=== PATIENT | male | born 1940 | race Asian ===

== ENCOUNTER 2019-08-05 22:43 | Inpatient (IN) | payer OTHER ==
[2019-08-05 23:06] LABS: Absolute Lymphocytes (CBC) 1.1 K/uL (0.7-4.9); Basophils % 0.5 % (0-1.3); Hematocrit 42.8 % (39.6-49.0); Lymphocytes % 25.4 % (15.3-44.8); MPV 7.7 fL (7.6-11.3); RBC Red Blood Cell Count 4.53 M/uL (4.33-5.43)
[2019-08-05 23:09] LABS: Protime INR 0.93
[2019-08-05 23:37] LABS: ALT/SGPT 36 U/L (12-78); AST/SGOT 23 U/L (15-37); Albumin 3.7 g/dL (3.4-5.0); Alkaline Phosphatase 45 U/L (45-117); BUN Blood Urea Nitrogen 26 mg/dL (7-18); Bicarbonate 23 mmol/L (21-32); Bilirubin Direct 0.1 mg/dL (0-0.2); Bilirubin Total 0.5 mg/dL (0.2-1.0); Glucose Level 198 mg/dL (74-106); Potassium 4.2 mmol/L (3.5-5.1); Protein, Total 7.4 g/dL (6.4-8.2); Sodium Level 139 mmol/L (136-145); Troponin (Emerg Dept Use Only) < 0.02 ng/mL (0.0-0.045)
--- NOTE | 2019-08-05 23:55 | EDPHYS ---
Physician Documentation [facility] Name: Mayte Avendaño Age: 78 yrs Sex: Male : 1940 Arrival Date: 08/05/2019 Time: 22:44 Bed 2 Private MD: ED Physician Chucho Smith HPI: 08/04 22:48 This 78 yrs old Male presents to ER via Unassigned with complaints of S/S of tw4 Possible Stroke. 22:48 The patient's problem is reported as paresthesias, in left upper extremity, in left tw4 lower extremity, in left side of face. Onset: The symptoms/episode began/occurred today. Duration: This was a single incident, The episode is continuous. Context: the episode(s) was witnessed, by no one, symptoms became apparent at 21:45. The symptoms are alleviated by nothing. The symptoms are aggravated by nothing. Associated signs and symptoms: The patient has no apparent associated signs or symptoms. Severity of symptoms: At their worst the symptoms were mild in the emergency department the symptoms are unchanged. Patient's baseline: Neuro: alert and fully oriented, Motor: no deficits, Ambulation: walks without assistance, Speech: normal. The patient has not experienced similar symptoms in the past. Historical: - Allergies: 23:15 No Known Allergies; tl2 - PMHx: 23:15 Hypertension; GERD; tl2 - Immunization history:: Adult Immunizations up to date. - Social history:: Smoking status: Patient/guardian denies using. ROS: 22:48 Constitutional: Negative for fever, chills, and weight loss, Eyes: Negative for injury, tw4 pain, redness, and discharge, Cardiovascular: Negative for chest pain, palpitations, and edema, Respiratory: Negative for shortness of breath, cough, wheezing, and pleuritic chest pain, Abdomen/GI: Negative for abdominal pain, nausea, vomiting, diarrhea, and constipation, Back: Negative for injury and pain. 22:48 Neuro: Positive for numbness, Negative for altered mental status, dizziness, gait disturbance, headache, hearing loss, speech changes, syncope, near syncope, tingling, tinnitus, tremor, visual changes, weakness. Exam: 22:48 Constitutional: This is a well developed, well nourished patient who is awake, alert, tw4 and in no acute distress. Head/Face: Normocephalic, atraumatic. Chest/axilla: Normal chest wall appearance and motion. Nontender with no deformity. No lesions are appreciated. Cardiovascular: Regular rate and rhythm with a normal S1 and S2. No gallops, murmurs, or rubs. Normal PMI, no JVD. No pulse deficits. Respiratory: Lungs have equal breath sounds bilaterally, clear to auscultation and percussion. No rales, rhonchi or wheezes noted. No increased work of breathing, no retractions or nasal flaring. Abdomen/GI: Soft, non-tender, with normal bowel sounds. No distension or tympany. No guarding or rebound. No evidence of tenderness throughout. Back: No spinal tenderness. No costovertebral tenderness. Full range of motion. MS/ Extremity: Pulses equal, no cyanosis. Neurovascular intact. Full, normal range of motion. 22:48 Constitutional: The patient appears in no acute distress, alert, awake. 22:48 Neuro: Orientation: is normal, Mentation: is normal, Memory: is normal, Cranial nerves: grossly normal, Cerebellar function: is grossly normal, Motor: is normal, Sensation: light touch is decreased in the forehead, left cheek, left jaw, left arm and left leg. Vital Signs: 22:44 BP 207 / 99; Pulse 85; Resp 18; Temp 97.8(O); Pulse Ox 100% on R/A; Weight 68.04 kg; tl2 Height 5 ft. 5 in. (166 cm); Pain 0/10; 23:15 BP 199 / 97; Pulse 85; Resp 18; Pulse Ox 98% on R/A; tl2 23:38 BP 172 / 90; Pulse 77; Resp 18; Pulse Ox 95% on R/A; tl2 13 00:11 BP 201 / 94; Pulse 84; Resp 17; Pulse Ox 98% on R/A; rv 00:33 BP 177 / 93; Pulse 81; Resp 12; Pulse Ox 97% on R/A; tl2 00:48 BP 183 / 89; Pulse 80; Resp 15; Pulse Ox 95% on R/A; tl2 01:18 BP 151 / 68; Pulse 83; Resp 18; Pulse Ox 97% on R/A; tl2 08/04 22:44 Body Mass Index 24.69 (68.04 kg, 166 cm) tl2 NIH Stroke Scale Scores: 08/04 23:17 NIHSS Score: 1 tl2 MDM: 22:44 Patient medically screened. tw4 08/04 22:46 Order name: Hepatic Function; Complete Time: 23:45 tw4 08/04 23:45 Interpretation: Normal except: GLOB 3.7; A/G 1.0. tw4 08/04 22:46 Order name: Magnesium; Complete Time: 23:45 tw 08/04 23:45 Interpretation: Within normal limits: MG 2.0. tw4 08/04 22:46 Order name: Troponin (emerg Dept Use Only); Complete Time: 23:45 tw 08/04 23:45 Interpretation: Within normal limits: TROPED < 0.02. tw4 08/04 22:46 Order name: Basic Metabolic Panel; Complete Time: 23:45 [facility] 08/04 23:45 Interpretation: Normal except: CL 109; GLUC 198; BUN 26; CRE 1.62; GFR 41. tw 08/04 22:46 Order name: CBC with Diff; Complete Time: 23:45 [facility] 08/04 23:45 Interpretation: Normal except: MN% 14.3. tw4 08/04 22:46 Order name: Protime (+inr); Complete Time: 23:45 [facility] 08/04 23:45 Interpretation: Within normal limits: PT 11.0. tw4 08/04 22:46 Order name: Ptt, Activated; Complete Time: 23:45 [facility] 08/04 23:46 Interpretation: Within normal limits: PTT 26.9. 08/04 22:46 Order name: CT Stroke Brain w/o Contrast 08/04 22:46 Order name: Stroke CXR 1 View 08/04 23:30 Order name: Glucose, Ancillary Testing; Complete Time: 23:45 EDMS 08/04 23:45 Interpretation: Abnormal: GLUC,ANCIL 191. 08/04 22:46 Order name: EKG; Complete Time: 22:47 tw4 08/04 22:46 Order name: Accucheck; Complete Time: 23:07 tw 08/04 22:46 Order name: Cardiac monitoring; Complete Time: 23:07 tw 08/04 22:46 Order name: EKG - Nurse/Tech; Complete Time: 23:07 tw4 08/04 22:46 Order name: IV Saline Lock; Complete Time: 23:07 4 08/04 22:46 Order name: Labs collected and sent; Complete Time: 23:07 4 08/04 22:46 Order name: NPO; Complete Time: 23:08 tw4 08/04 22:46 Order name: O2 Per Protocol; Complete Time: 23:08 4 08/04 22:46 Order name: O2 Sat Monitoring; Complete Time: 23:08 4 08/04 22:46 Order name: Stroke Swallow Screen; Complete Time: 23:42 tw4 EC:32 Rate is 85 beats/min. Rhythm is regular. QRS [place] is Normal. NV interval is normal. QRS tw4 interval is normal. QT interval is normal. No Q waves. T waves are Inverted in leads I, aVL. No ST changes noted. Clinical impression: NSR w/ Non-specific ST/T Changes. Interpreted by me. Reviewed by me. Administered Medications: 23:27 Drug: Labetalol 10 mg {Note: BP 202/104.} Route: IVP; Infused Over: 2 mins; Site: left tl2 antecubital; 23:45 Follow up: Response: No adverse reaction; Blood pressure is lowered tl2 08/05 00:15 Drug: hydrALAZINE 5 mg {Note: BP 201/94.} Route: IV; Rate: bolus; Site: left tl2 antecubital; 00:40 Follow up: Response: No adverse reaction; Blood pressure is lowered tl2 01:34 Follow up: IV Status: Completed infusion tl2 00:30 Drug: Pepcid 20 mg Route: IVP; Site: left antecubital; rv 01:34 Follow up: Response: No adverse reaction tl2 00:30 Drug: Zofran (Ondansetron) 4 mg Route: IVP; Site: left antecubital; rv 01:34 Follow up: Response: No adverse reaction tl2 Point of Care Testing: Blood Glucose: 08/04 23:15 Blood Glucose: 191 mg/dL; tl2 Ranges: Critical Glucose Levels:Adult <50 mg/dl or >400 mg/dl <40 mg/dl or >180 mg/dl Disposition: 08/05/19 23:54 Hospitalization ordered by Germán Manzanares for Observation. Preliminary diagnosis are Hypertensive emergency, Cerebrovascular disease, unspecified. - Bed requested for Telemetry/MedSurg (observation). - Status is Observation. sg - Condition is Stable. - Problem is new. - Symptoms have improved. NIH Stroke Scale - NIH Stroke Score Date: 08/05/2019 Time: 23:17 Total Score = 1 1a. Level of Consciousness (LOC) - 0(Alert) 1b. Level of Consciousness (LOC) (Year \T\ Age) - 0(Both) 1c. LOC Commands (Open \T\ Closes Eyes/Ic Designer Standard Cells) - 0(Both) 2. Best Gaze (Lateral Gaze Paresis) - 0(Normal) 3. Visual Field Loss - 0(No visual loss) 4. Facial Palsy - 0(Normal) 5a. Left Arm: Motor (10-second hold) - 0(No drift) 5b. Right Arm: Motor (10-second hold) - 0(No drift) 6a. Left Leg: Motor (5-second hold - always test supine) - 0(No drift) 6b. Right Leg: Motor (5-second hold - always test supine) - 0(No drift) 7. Limb Ataxia (finger/nose \T\ heel/cage - test with eyes open) - 0(Absent) 8. Sensory Loss (pinprick arms/legs/face) - 1(Mild to moderate loss) 9. Best Language: Aphasia (description/naming/reading) - 0(No aphasia) 10. Dysarthria (speech clarity - read or repeat words) - 0(Normal) 11. Extinction and Inattention (visual/tactile/auditory/spatial/personal) - 0(No abnormality) Initials: tl2 Signatures: Dispatcher [employer] EDShay Horton RN RN Precious Carrizales RN SURY Nataliia Fields RN RN tl2 Chucho Smith MD MD tw4 Fidel Jaramillo RN RN rv Corrections: (The following items were deleted from the chart) 08/05 01:16 08/04 23:54 Hospitalization Ordered by Germán Manzanares for Observation. diane Preliminary diagnosis is Hypertensive emergency; Cerebrovascular disease, unspecified. Bed requested for Telemetry/MedSurg (observation). Status is Observation. Condition is Stable. Problem is new. Symptoms have improved. tw4 08/05 01:42 01:16 08/05/2019 23:54 Hospitalization Ordered by Germán Manzanares for sg Observation. Preliminary diagnosis is Hypertensive emergency; Cerebrovascular disease, unspecified. Bed requested for Telemetry/MedSurg (observation). Status is Observation. Condition is Stable. Problem is new. Symptoms have improved. cg
--- NOTE | 2019-08-05 23:55 | ER ---
Nurse's Notes [facility] Name: Mayte Avendaño Age: 78 yrs Sex: Male : 1940 Arrival Date: 08/05/2019 Time: 22:44 Bed 2 Private MD: Diagnosis: Hypertensive emergency;Cerebrovascular disease, unspecified Presentation: 08/04 22:44 Note a code stroke has been called. sg 22:44 Onset of symptoms was August 05, 2019 at 22:10. sg 22:44 Acuity: CHARY 2 sg 22:44 Chief complaint: EMS states: Pt was in the bath and noticed numbness to left arm and tl2 left leg. Pt maintains strength and motor control but c/o sensation deficit on left side. Pt's BP is elevated 220/110. Pt AOx4. Coronavirus screen: Proceed with normal triage. Patient denies a cough. Patient denies shortness of breath or difficulty breathing. Patient denies measured and/or subjective temperature greater than 100.4F prior to today's visit. Patient denies travel on a cruise ship or to a country the [facility] currently lists as an affected area. Patient denies contact with known and/or suspected case of COVID-19. Ebola Screen: No symptoms or risks identified at this time. No acute neurological deficit is noted. The patients blood glucose was checked prior to arriving to the hospital and was found to be hyperglycemic. Initial Sepsis Screen: Does the patient meet any 2 criteria? No. Patient's initial sepsis screen is negative. Does the patient have a suspected source of infection? No. Patient's initial sepsis screen is negative. Risk Assessment: Do you want to hurt yourself or someone else? Patient reports no desire to harm self or others. 22:44 Method Of Arrival: EMS: [facility] tl2 Triage Assessment: 22:44 The onset of the patients symptoms was August 05, 2019 at 21:50. tl2 23:15 The onset of the patients symptoms was less than three hours ago. General: Appears in tl2 no apparent distress. comfortable, Behavior is calm, cooperative, appropriate for age. Pain: Denies pain. Neuro: Level of Consciousness is awake, alert, obeys commands, Oriented to person, place, time, situation, Gunsmith Apprentice are equal bilaterally Moves all extremities. Speech is normal, Facial symmetry appears normal, Numbness in left arm and left leg Reports numbness in left arm and left leg and left cheek Denies dizziness, headache. Cardiovascular: Denies chest pain. Respiratory: Airway is patent Respiratory effort is even, unlabored, Respiratory pattern is regular, symmetrical. GI: No signs and/or symptoms were reported involving the gastrointestinal system. : No signs and/or symptoms were reported regarding the genitourinary system. Derm: Skin is pink, warm \T\ dry. Stroke Activation: Symptom onset < 3 hours Physician: Stroke Attending; Name: N/A; Notified At: 22:44; Arrived At: N/A Physician: Chief Stroke Resident; Name: N/A; Notified At: 22:44; Arrived At: N/A Physician: Stroke Resident; Name: N/A; Notified At: 22:44; Arrived At: N/A Physician: ED Attending; Name: ; Notified At: 22:44; Arrived At: 22:44 Physician: ED Resident; Name: N/A; Notified At: 22:44; Arrived At: N/A Historical: - Allergies: 23:15 No Known Allergies; tl2 - PMHx: 23:15 Hypertension; GERD; tl2 - Immunization history:: Adult Immunizations up to date. - Social history:: Smoking status: Patient/guardian denies using. Screenin:17 Abuse screen: Denies threats or abuse. Nutritional screening: No deficits noted. tl2 Tuberculosis screening: No symptoms or risk factors identified. Fall Risk IV access (20 points). 23:42 The patient has not been NPO before screening. The patient is alert, able to follow tl2 commands. The patient does not exhibit slurred or garbled speech The patient is not exhibiting difficulty speaking. The patient does not exhibit difficulty understanding words. The patient is able to swallow own secretions with no drooling or need for suction. Patient tolerated one teaspoon of water. No drooling, immediate coughing, gurgling, or clearing of the throat was noted. The patient tolerated 90mL of water. No drooling, immediate coughing, gurgling, or clearing of the throat was noted. The patient passed the bedside swallow screening. Oral medications may be given as ordered. Contact Physician for further diet orders. Provider notified of bedside swallow screening results: Chucho Smith MD. Assessment: 23:17 VAN Scoring: Arm Drift: Patients demonstrates NO arm weakness. Patient is VAN Negative. tl2 General: see triage assessment. 23:30 T-PA (Activase) Screening: Indications: Contraindications: Rapidly improving condition tl2 or minor deficit: Yes. 23:43 The patient has not been NPO before screening. The patient is alert, and able to follow tl2 commands. The patient does not exhibit slurred or garbled speech. The patient is not exhibiting difficulty speaking. The patient does not exhibit difficulty understanding words. The patient is able to swallow own secretions with no drooling or need for suction. Patient tolerated one teaspoon of water. No drooling, immediate coughing, gurgling, or clearing of the throat was noted. The patient tolerated 90mL of water. No drooling, immediate coughing, gurgling, or clearing of the throat was noted. The patient passed the bedside swallow screening. Oral medications may be given as ordered. Contact Physician for further diet orders. Provider notified of bedside swallow screening results: Chucho Smith MD. 08/05 00:08 Reassessment: Patient appears in no apparent distress at this time. Patient and/or tl2 family updated on plan of care and expected duration. Pain level reassessed. Patient is alert, oriented x 3, equal unlabored respirations, skin warm/dry/pink. MD notified of pt's elevated BP. New orders, see APR. 01:31 Reassessment: Patient appears in no apparent distress at this time. Patient and/or tl2 family updated on plan of care and expected duration. Pain level reassessed. Patient is alert, oriented x 3, equal unlabored respirations, skin warm/dry/pink. Vital Signs: 08/04 22:44 BP 207 / 99; Pulse 85; Resp 18; Temp 97.8(O); Pulse Ox 100% on R/A; Weight 68.04 kg; tl2 Height 5 ft. 5 in. (166 cm); Pain 0/10; 23:15 BP 199 / 97; Pulse 85; Resp 18; Pulse Ox 98% on R/A; tl2 23:38 BP 172 / 90; Pulse 77; Resp 18; Pulse Ox 95% on R/A; tl2 08/05 00:11 BP 201 / 94; Pulse 84; Resp 17; Pulse Ox 98% on R/A; rv 00:33 BP 177 / 93; Pulse 81; Resp 12; Pulse Ox 97% on R/A; tl2 00:48 BP 183 / 89; Pulse 80; Resp 15; Pulse Ox 95% on R/A; tl2 01:18 BP 151 / 68; Pulse 83; Resp 18; Pulse Ox 97% on R/A; tl2 08/04 22:44 Body Mass Index 24.69 (68.04 kg, 166 cm) tl2 NIH Stroke Scale Scores: 08/04 23:17 NIHSS Score: 1 tl2 ED Course: 22:44 Patient arrived in ED. sg 22:44 Chucho Smith MD is Attending Physician. tw4 22:44 Arm band placed on. sg 22:58 CT Stroke Brain w/o Contrast In Process Unspecified. EDMS 23:02 Stroke CXR 1 View In Process Unspecified. EDMS 23:05 Triage completed. sg 23:07 Nataliia Fields, SURY is Primary Nurse. tl2 23:17 Patient has correct armband on for positive identification. Placed in gown. Bed in low tl2 position. Call light in reach. Side rails up X2. 23:17 Maintain EMS IV. Dressing intact. Good blood return noted. Site clean \T\ dry. Gauge \T\ tl 2 site: 20 G L AC. 23:51 Germán Manzanares is Hospitalizing Provider. tw4 08/05 01:31 No provider procedures requiring assistance completed. Patient admitted, IV remains in tl2 place. Administered Medications: 08/04 23:27 Drug: Labetalol 10 mg {Note: BP 202/104.} Route: IVP; Infused Over: 2 mins; Site: left tl2 antecubital; 23:45 Follow up: Response: No adverse reaction; Blood pressure is lowered tl2 08/05 00:15 Drug: hydrALAZINE 5 mg {Note: BP 201/94.} Route: IV; Rate: bolus; Site: left tl2 antecubital; 00:40 Follow up: Response: No adverse reaction; Blood pressure is lowered tl2 01:34 Follow up: IV Status: Completed infusion tl2 00:30 Drug: Pepcid 20 mg Route: IVP; Site: left antecubital; rv 01:34 Follow up: Response: No adverse reaction tl2 00:30 Drug: Zofran (Ondansetron) 4 mg Route: IVP; Site: left antecubital; rv 01:34 Follow up: Response: No adverse reaction tl2 Point of Care Testing: Blood Glucose: 08/04 23:15 Blood Glucose: 191 mg/dL; tl2 Ranges: Outcome: 23:54 Decision to Hospitalize by Provider. tw4 08/05 01:31 Admitted to Tele accompanied by tech, via stretcher, room 431, with chart. tl2 Condition: stable Instructed on the need for admit. 01:42 Patient left the ED. terra NIH Stroke Scale - NIH Stroke Score Date: 08/05/2019 Time: 23:17 Total Score = 1 1a. Level of Consciousness (LOC) - 0(Alert) 1b. Level of Consciousness (LOC) (Year \T\ Age) - 0(Both) 1c. LOC Commands (Open \T\ Closes Eyes/Template Clerk) - 0(Both) 2. Best Gaze (Lateral Gaze Paresis) - 0(Normal) 3. Visual Field Loss - 0(No visual loss) 4. Facial Palsy - 0(Normal) 5a. Left Arm: Motor (10-second hold) - 0(No drift) 5b. Right Arm: Motor (10-second hold) - 0(No drift) 6a. Left Leg: Motor (5-second hold - always test supine) - 0(No drift) 6b. Right Leg: Motor (5-second hold - always test supine) - 0(No drift) 7. Limb Ataxia (finger/nose \T\ heel/cage - test with eyes open) - 0(Absent) 8. Sensory Loss (pinprick arms/legs/face) - 1(Mild to moderate loss) 9. Best Language: Aphasia (description/naming/reading) - 0(No aphasia) 10. Dysarthria (speech clarity - read or repeat words) - 0(Normal) 11. Extinction and Inattention (visual/tactile/auditory/spatial/personal) - 0(No abnormality) Initials: tl2 Signatures: Dispatcher [employer] EDMS Shay Chau RN RN Nataliia Fields RN RN tl2 Chucho Smith MD MD tw4 Fidel Jaramillo, RN RN rv
[2019-08-06] MEDS ORDERED: HYDRALAZINE HCL 20 MG/ML VIAL ONE (00:14)
[2019-08-06] MEDS ORDERED: FAMOTIDINE 20 MG/2 ML VIAL IV ONE (00:35)
[2019-08-06] MEDS ORDERED: ONDANSETRON 4 MG/2 ML VIAL ONE (00:35)
--- NOTE | 2019-08-06 00:38 | P.HP ---
Certification for Inpatient Patient admitted to: Observation With expected LOS: <2 Midnights Practitioner: I am a practitioner with admitting privileges, knowledge of patient current condition, hospital course, and medical plan of care. Services: Services provided to patient in accordance with Admission requirements found in Title 42 Section 412.3 of the Code of Federal Regulations Patient History Date of Service: 08/06/19 Reason for admission: Left-sided numbness History of Present Illness: 78-year-old man with a history of hypertension, hyperlipidemia presented to the emergency department with a complaint of sudden onset of left-sided numbness and subjective weakness in the left hand. His systolic blood pressure in the ED was elevated to 220. Patient took 2 baby aspirin before coming to the ED. EKG in the ED shows sinus rhythm. CT head shows no acute disease. Patient was given IV labetalol and IV hydralazine to bring down his blood pressure. He is placed under observation for further evaluation for TIA. - Past Medical/Surgical History -: Hypertension -: Hyperlipidemia - Family History Family History: Reviewed- Non-Contributory - Family History Mother -: Hypertension - Social History Smoking Status: Never smoker Alcohol use: Yes CD- Drugs: No Review of Systems Other: Except as documented, all other systems reviewed and negative. Physical Examination - Physical Exam General: Alert, In no apparent distress, Oriented x3 HEENT: Normocephalic, PERRLA, Mucous membr. moist/pink, EOMI Neck: Supple, 2+ carotid pulse no bruit, JVD not distended Respiratory: Clear to auscultation bilaterally, Normal air movement Cardiovascular: No edema, Regular rate/rhythm, Normal S1 S2, No murmurs Capillary refill: <2 Seconds Gastrointestinal: Normal bowel sounds, Soft and benign, No tenderness Musculoskeletal: No swelling, No erythema Integumentary: No rashes Neurological: Normal speech, Normal strength at 5/5 x4 extr - Studies Laboratory Data (last 24 hrs) 08/05/19 22:47: PT 11.0, INR 0.93, APTT 26.9 08/05/19 22:47: WBC 4.5, Hgb 14.4, Hct 42.8, Plt Count 229 08/05/19 22:47: Sodium 139, Potassium 4.2, BUN 26 H, Creatinine 1.62 H, Glucose 198 H, Magnesium 2.0, Total Bilirubin 0.5, AST 23, ALT 36, Alkaline Phosphatase 45 Assessment and Plan - Problems (Diagnosis) (1) TIA (transient ischemic attack) Current Visit: Yes Status: Acute (2) Hypertension Current Visit: Yes Status: Acute (3) Hyperlipidemia Current Visit: Yes Status: Acute (4) Chronic kidney disease, stage 3 Current Visit: Yes Status: Acute - Plan Place under observation. Start aspirin 162 mg daily Lipitor 40 mg daily Check lipid profile Echocardiogram MRI of the brain if available tomorrow. Neurochecks. Cardiac monitoring. - Advance Directives Does patient have a Living Will: No Does patient have a Durable POA for Healthcare: No
[2019-08-06] MEDS: NA CHLORIDE 0.9% 1,000 ML IV SCH ×2 (02:34→13:56)
[2019-08-06] MEDS ORDERED: BISOPROLOL/HCTZ 2.5/6.25MG TAB PO PRN (06:08)
[2019-08-06] MEDS: PANTOPRAZOLE 40MG TABLET PO SCH (06:40)
[2019-08-06] MEDS: ASPIRIN EC 81 MG TAB PO SCH (08:35)
[2019-08-06] MEDS: [UNRECOGNIZED DRUG - OTHER] EACH EYE SCH ×2 (08:35→21:00)
[2019-08-06] MEDS: ENOXAPARIN 40 MG/0.4 ML SQ SCH (08:35)
[2019-08-06] MEDS: DORZOLAMIDE HCL EACH EYE SCH ×2 (08:35→21:00)
[2019-08-06] MEDS: TIMOLOL MALEAT EACH EYE SCH ×2 (08:35→21:00)
[2019-08-06] MEDS: HYDRALAZINE HCL 20 MG/ML VIAL IV PRN (09:28)
--- NOTE | 2019-08-06 10:37 | RAD REPORT ---
EXAM DESCRIPTION: Alexis Single View08/05/2019 11:02 pm CLINICAL HISTORY: Numbness COMPARISON: none FINDINGS: The lungs appear clear of acute infiltrate. The heart is normal size IMPRESSION: No acute abnormalities displayed
[2019-08-06] MEDS: FENOFIBRATE 160 MG TAB PO SCH (10:40)
--- NOTE | 2019-08-06 11:08 | RAD REPORT ---
EXAM DESCRIPTION: CT - C Spine Wo Con - 08/06/2019 10:36 am CLINICAL HISTORY: Left arm numbness COMPARISON: None. TECHNIQUE: Computed axial tomography of the cervical spine were obtained with sagittal and coronal r econstruction images generated and reviewed. All CT scans are performed using dose optimization technique as appropriate and may include automated exposure control or mA/KV adjustment according to patient size. FINDINGS: A cervical fracture is not seen. No dislocation Central osteophyte C3-4 results in mild central spinal stenosis S spondylosis C5-6 and C6-7 resulting in mild central spinal stenosis No gross abnormality of the spinal cord although evaluation is limited CT Mild foraminal stenosis C6-7 IMPRESSION: A cervical fracture is not seen. Spondylosis resulting in mild central spinal stenosis C3-4, C4-5 and C5-6 Spondylosis C6-7 resulting in mild bilateral foraminal stenosis If the patient continues have symptoms to suggest spinal cord/spinal canal pathology then MRI would b e recommended.
[2019-08-06] MEDS: ONDANSETRON 4 MG/2 ML VIAL IV PRN ×2 (11:19→16:33)
[2019-08-06] MEDS ORDERED: HOME MED 1 EA UNK (Latanoprost/Pf [Latanoprost 0.005% Eye Drop] 1 DROP) EACH EYE SCH (21:00)
[2019-08-06] MEDS: ATORVASTATIN 20 MG TAB PO SCH (21:32)
[2019-08-07] MEDS: HYDRALAZINE HCL 20 MG/ML VIAL IV PRN ×3 (00:54→21:26)
[2019-08-07] MEDS: NA CHLORIDE 0.9% 1,000 ML IV SCH ×2 (00:57→04:53)
[2019-08-07] MEDS ORDERED: LORAZEPAM 0.5 MG TABLET PO ONE (01:49)
[2019-08-07 05:25] LABS: Absolute Lymphocytes (CBC) 0.9 K/uL (0.7-4.9); Basophils % 0.3 % (0-1.3); Hematocrit 41.9 % (39.6-49.0); Lymphocytes % 13.9 % (15.3-44.8); MPV 7.5 fL (7.6-11.3); RBC Red Blood Cell Count 4.52 M/uL (4.33-5.43)
[2019-08-07 05:53] LABS: Magnesium 2.3 mg/dL (1.8-2.4); Phosphorus 2.9 mg/dL (2.5-4.9); Thyroid Stimulating Hormone 1.09 uIU/mL (0.360-3.740)
[2019-08-07] MEDS: PANTOPRAZOLE 40MG TABLET PO SCH (06:10)
[2019-08-07] MEDS: ENOXAPARIN 40 MG/0.4 ML SQ SCH (08:41)
[2019-08-07] MEDS: FENOFIBRATE 160 MG TAB PO SCH (08:42)
[2019-08-07] MEDS: DORZOLAMIDE HCL EACH EYE SCH (08:42)
[2019-08-07] MEDS: ASPIRIN EC 81 MG TAB PO SCH (08:42)
[2019-08-07] MEDS: TIMOLOL MALEAT EACH EYE SCH (08:42)
[2019-08-07] MEDS: [UNRECOGNIZED DRUG - OTHER] EACH EYE SCH (08:42)
--- NOTE | 2019-08-07 13:17 | PN ---
Date of Progress Note: 08/07/2019 Patient seen and examined. Chart reviewed and case discussed with RN. Family at the bedside. Also spoke with the daughter yesterday at length. They did not wish to have any transfer to higher level of care for Neurology. Did speak with Dr. Azul yesterday. We will evaluate the patient in a.m. Medications: List reviewed. Code Status: Full code. Physical Examination: Vital Signs: Temperature 98.4, heart rate 86, blood pressure 176/77, respirations 18, O2 sat 95% on room air. General: Awake, alert, oriented x3. Elderly male, not any acute distress. CV: S1, S2. Regular rate and rhythm. Peripheral pulses present. Respiratory: Moving air well bilaterally. No wheezing or stridor. No use of accessory muscles. Gastrointestinal: Abdomen is soft, nontender, nondistended. Positive bowel sounds. Extremities: No clubbing, cyanosis, or edema. Neuro: Patient has weakness on the left upper extremity, numbness and decreased sensation to light touch on the left side of the face and left upper extremity. Patient has abnormal rplizf-lv-rwwt and coordination. Laboratory Data: Sodium 139, potassium 4, chloride 107, CO2 of 26, BUN 18, creatinine 1.31, glucose 117, calcium 8.1, phosphorus 2.9, magnesium 2.3. Triglycerides 221, cholesterol 202, LDL 119, HDL 39. WBC 6.3, H and H 14.1 and 41.9, platelets 226, neutrophils 72%. Assessment And Plan: 78-year-old male with: 1. Transient ischemic attack, likely cerebrovascular accident. Patient likely has cerebellar stroke due to deficit in coordination along with left upper extremity weakness and facial numbness and tingling. Did speak with Dr. Azul who will be able to see the patient in a.m. We will continue with stroke guidelines, aspirin and statin. Patient has abnormal lipids. Counseled. We will continue with workup including echocardiogram, MRA, MRI in a.m. Not available on the weekend. 2. Essential hypertension. We will allow permissive hypertension due to acute suspected cerebrovascular accident. Hydralazine for blood pressure greater than 180 systolic. According to the daughter, patient had only been taking the medication sporadically. 3. Mixed hyperlipidemia. Counseled. 4. TAYLOR. Creatinine is slightly improved from yesterday. Continue to monitor. Avoid nonsteroidal anti-inflammatory drugs and nephrotoxins. Continue neuro checks. Spoke with daughter who said that he does not have any history of prior kidney dysfunction. Will consult nephrology 5. Deep vein thrombosis prophylaxis with Lovenox. /NKECHI Voice ID: [id number] Report ID: [id number] MTDD
[2019-08-07] MEDS: NACHLORIDE 0.45% 1,000 ML IV SCH (15:10)
[2019-08-07] MEDS: DORZOLAMIDE HCL OPTH SCH (16:10)
[2019-08-07] MEDS: [UNRECOGNIZED DRUG - OTHER] OPTH SCH (16:10)
[2019-08-07] MEDS: ATORVASTATIN 20 MG TAB PO SCH (20:46)
--- NOTE | 2019-08-07 22:00 | RAD REPORT ---
EXAM DESCRIPTION: USCarotid Artery Bilateral08/07/2019 9:19 pm CLINICAL HISTORY: CVA COMPARISON: None FINDINGS: The velocity of the right internal carotid artery equals 149 cm/sec. The right ICA/CCA rat io 1. The velocity of the left internal carotid artery equals 110 cm/sec. The left ICA/CCA ratio 1. Mild plaque is present within the carotid arteries. The vertebral arteries demonstrate antegrade flow IMPRESSION: Mild plaque within the carotid arteries without evidence of a hemodynamically significan t stenosis NASCET criteria used. Mild 0-49% stenosis Moderate 50-69% stenosis Severe 70-99% stenosis
[2019-08-08] MEDS: DORZOLAMIDE HCL OPTH SCH ×3 (01:00→16:00)
[2019-08-08] MEDS: [UNRECOGNIZED DRUG - OTHER] OPTH SCH ×3 (01:00→16:00)
[2019-08-08] MEDS: NACHLORIDE 0.45% 1,000 ML IV SCH ×4 (04:38→22:00)
[2019-08-08] MEDS: PANTOPRAZOLE 40MG TABLET PO SCH (06:29)
[2019-08-08] MEDS: ENOXAPARIN 40 MG/0.4 ML SQ SCH (08:10)
[2019-08-08] MEDS: CYANOCOBALAMIN 1,000 MCG TAB PO SCH (08:11)
[2019-08-08] MEDS: FENOFIBRATE 160 MG TAB PO SCH (08:11)
[2019-08-08] MEDS: ASPIRIN EC 81 MG TAB PO SCH (08:11)
[2019-08-08] MEDS: HYDRALAZINE HCL 20 MG/ML VIAL IV PRN (08:44)
--- NOTE | 2019-08-08 09:47 | RAD REPORT ---
EXAM DESCRIPTION: CT - Ct Stroke Brain Wo Cont - 08/06/2019 5:43 am EXAM DESCRIPTION: Ct Stroke Brain Wo Cont CLINICAL HISTORY: 78 years Male, NUMBNESS PROCEDURE: 5 mm axial images were obtained along with 3 mm reformatted coronal and sagittal images. This exam was performed according to our departmental dose-optimization program, which includes autom ated exposure control, adjustment of the mA and/or kV according to patient size and/or use of iterati ve reconstruction technique. COMPARISON: None. FINDINGS: No acute abnormal extracerebral fluid collections are demonstrated. The cortical sulci, ventricles, and cisterns are within normal limits. There is atherosclerosis of the cavernous portions of the internal carotid arteries bilaterally. There are no areas of altered attenuation identified to suggest acute hemorrhage, infarction, or mass lesion. The visualized portions of the paranasal sinuses and mastoid air cells are clear. IMPRESSION: 1. No acute intracranial abnormalities. NOTIFICATION: Results were discussed with emergency room personnel at 11:10 PM. They will relay the results to Dr. Smith who was unavailable at the time of the call. Electronically signed by: Apolinar Regalado MD 08/05/2019 11:11 PM CDT Due to temporary technical issues with the PACS/Fluency reporting system, reports are being signed by the in house radiologist without review as a courtesy to ensure prompt reporting. The interpreting r adiologist is fully responsible for the content of the report.
--- NOTE | 2019-08-08 16:10 | RAD REPORT ---
EXAM DESCRIPTION: MRI - MRA Head Wo Cont - 08/08/2019 2:08 pm CLINICAL HISTORY: Left-sided weakness, CVA COMPARISON: None. TECHNIQUE: Axial and coronal 3D [id number] image acquisition was performed. 3D rotational images were generated with source and reconstruction images reviewed. Horizontal and vertical axis rotation al views generated using MIP protocol. FINDINGS: No aneurysm or vascular malformation. Mild atherosclerotic changes are present in the dist al vertebral arteries and basilar artery. No significant degree of stenosis. Mild atherosclerotic nancy nges are present in the left posterior cerebral artery. There is complete truncation of the right posterior cerebral artery at the T1-P2 junction. Patient has significant atherosclerotic change with luminal narrowing in the bilateral internal carot id arteries in the cavernous portions as well as the supraclinoid portions. Significant luminal narro wing seen in the right anterior cerebral artery A1 segment. Patient has very significant luminal narr owing atherosclerotic changes in the middle cerebral arteries involving M1, M2 and far peripheral M3 branches. IMPRESSION: Very significant intracranial atherosclerotic changes as detailed. Findings include comp lete truncation of the right posterior cerebral artery distal to the P1 branch.
--- NOTE | 2019-08-08 16:25 | RAD REPORT ---
EXAM DESCRIPTION: MRI - MRA Neck W/Wo Cont - 08/08/2019 2:08 pm CLINICAL HISTORY: Left-sided weakness, CVA COMPARISON: MRI/MRA same date TECHNIQUE: MR angiography of the cervical vasculature performed. Coronal imaging plane acquisition u tilized. A 16 milliliter MultiHance contrast volume was utilized. Coronal reformatted images were ge nerated and reviewed. Vertical axis 3D rotational projections obtained using maximum intensity projec tion protocol. FINDINGS: Aortic arch is 3 vessel. No stenosis of the great vessel origins. Vertebral arteries are c odominant in the proximal and mid portions. Origins are unremarkable. A short bandlike narrowing is present in the right distal common carotid artery at the bifurcation in to the internal and external arteries. Narrowing is approximately 40%. The remainder of the internal carotid artery to the skull base shows no narrowing. Approximately 50% stenosis of the right external carotid artery is present. These are generally not clinically significant. The left common carotid a nd internal carotid arteries show no significant disease. No dissection identified. IMPRESSION: Short-segment 40% narrowing at the right common carotid - internal carotid artery juncti on.
--- NOTE | 2019-08-08 16:28 | RAD REPORT ---
EXAM DESCRIPTION: MRI - Brain W/Wo Cont - 08/08/2019 2:08 pm CLINICAL HISTORY: LEFT SIDED NUMBNESS AND WEAKNESS COMPARISON: MRA Head Wo Cont dated 08/08/2019 TECHNIQUE: Sagittal and axial T1-weighted images were obtained. Axial PD/heavily T2-weighted and T2- FLAIR images were obtained along with axial DWI/ADC mapping sequences. Coronal heavily T2 weighted s equence obtained. Axial and coronal post-contrast T1-weighted images were also obtained. A 16 ml Mul tihance contrast following utilized. FINDINGS: Approximately 14 millimeter focus of acute nonhemorrhagic infarction is present in the pos terior right thalamus. A smaller 5 x 2 mm right thalamus acute CVA focus present as well. There are c orresponding areas diminished activity on ADC mapping. No other areas of acute infarction noted. No m ass, edema or shift of midline structures. Patient has mild underlying atrophy change. There are scat tered mild chronic ischemic changes in the cerebral white matter. No brainstem chronic ischemic begum e. Signal voids are seen as a normal finding in the major intracranial vessels. Ventricles are normal . Post-contrast images show normal enhancement. No dural thickening. Mastoid air cells and paranasal sinuses are clear. IMPRESSION: Acute nonhemorrhagic CVA involving the right thalamus. Area of infarction would be consi stent with the MRA findings of truncated right posterior cerebral artery. No other area of acute infarction. No hemorrhage, mass, edema or other acute intracranial finding. Mild atrophy and chronic ischemic change.
[2019-08-08] MEDS ORDERED: GLUCAGON 1 MG/VIAL IM PRN (17:28)
[2019-08-08] MEDS ORDERED: D50W 25 GM/50 ML SYRINGE/VIAL IV PRN (17:28)
--- NOTE | 2019-08-08 17:35 | P.PN ---
Subjective Date of Service: 08/08/19 Primary Care Provider: Dr. Sheffield Chief Complaint: Left-sided numbness Subjective: Improving, Doing well Physical Examination - Vital Signs Temperature: 98.8 F Blood Pressure: 136/62 Pulse: 88 Respirations: 18 Pulse Ox (%): 96 - Physical Exam General: Alert, In no apparent distress, Oriented x3, Cooperative HEENT: Atraumatic Respiratory: Clear to auscultation bilaterally, Normal air movement Cardiovascular: Normal pulses, Regular rate/rhythm Neurological: Normal speech, Normal tone, Normal affect - Studies Medications List Reviewed: Yes Assessment & Plan Discharge Plan: Home Plan to discharge in: 48 Hours Physician Review Additional Text: Impression: Left sided upper ext weakness/numbness/Dizziness secondary to Acute nonhemorrhagic CVA involving the right thalamus severe intracranial atherosclerotic changes with Truncated right posterior cerebral artery HTN DM type 2 Mixed hyperlipidemia Acute on chronic renal disease stage 3 Plan: Continue with ASA, lipitor, tricor, folic acid and DVT prophylaxis. Await recommendations by Neurology. Continue witth IV fluids. Continue with PT, OT. Continue with Nephrology recommendations. Continue with treatment of HTN. Will continue with accucheck and sliding scale for now. He may required Home health with PT. Cased discussed with his PCP Dr. Sheffield who will take over the patient tomorrow. Time Spent Managing Pts Care (In Minutes): 55
[2019-08-08] MEDS: ATORVASTATIN 40 MG TAB PO SCH (20:08)
[2019-08-08] MEDS: INSULIN -REGULAR HUMAN 50 UNIT/0.5 ML ML SQ SCH (20:56)
--- NOTE | 2019-08-08 21:09 | P.CNS ---
Date of Consult: 08/08/19 Reason for Consult: TAYLOR Requesting Physician: Dwayne Cevallos Primary Care Provider: Dr. Sheffield Chief Complaint: Left-sided numbness History of Present Illness: 78 yo Male HTN, DM presented to the ER with sudden onset left sided numbness complicated by TAYLOR. Denies NSAIDs. No bladder difficulties. 78-year-old man with a history of hypertension, hyperlipidemia presented to the emergency department with a complaint of sudden onset of left-sided numbness and subjective weakness in the left hand. His systolic blood pressure in the ED was elevated to 220. Patient took 2 baby aspirin before coming to the ED. EKG in the ED shows sinus rhythm. CT head shows no acute disease. Patient was given IV labetalol and IV hydralazine to bring down his blood pressure. He is placed under observation for further evaluation for TIA. 22:48 This 78 yrs old Male presents to ER via Unassigned with complaints of S/S of tw4 Possible Stroke. 22:48 The patient's problem is reported as paresthesias, in left upper extremity, in left tw4 lower extremity, in left side of face. Onset: The symptoms/episode began/occurred today. Duration: This was a single incident, The episode is continuous. Context: the episode(s) was witnessed, by no one, symptoms became apparent at 21:45. The symptoms are alleviated by nothing. The symptoms are aggravated by nothing. Associated signs and symptoms: The patient has no apparent associated signs or symptoms. Sev erity of symptoms: At their worst the symptoms were mild in the emergency department the symptoms are unchanged. Patient's baseline: Neuro: alert and fully orient ed, Motor: no deficits, Ambulation: walks without assistance, Speech: normal. The patient has not experienced similar symptoms in the past. Allergies No Known Allergies Allergy (Unverified 08/06/19 01:24) Home medications list reviewed: Yes Home Medications: Bisoprolol/Hydrochlorothiazide [Bisoprolol-Hctz 2.5-6.25 mg Tb] 1 tab PO DAILY PRN 08/06/19 Cyanocobalamin [Vitamin B-12*] 1 tab PO SEECOM 08/06/19 Dorzolamide HCl/Timolol Maleat [Dorzolamide-Timolol Eye Drops] 1 drop EACH EYE BID 08/06/19 Fenofibrate [Tricor] 145 mg PO DAILY 08/06/19 Latanoprost/Pf [Latanoprost 0.005% Eye Drop] 1 drop EACH EYE BEDTIME 08/06/19 Omeprazole [Prilosec] 1 cap PO DAILY 08/06/19 - Past Medical/Surgical History Diabetic: No -: Hypertension -: Hyperlipidemia -: GERD -: Glaucoma -: Cataract Surgery - Family History Mother Medical History: Hypertension Father Medical History: Hypertension - Social History Alcohol use: No CD- Drugs: No Caffeine use: No Place of Residence: Home Review of Systems 10-point ROS is otherwise unremarkable General: Weakness, Malaise Gastrointestinal: Nausea Neurological: Weakness Physical Examination Temp Pulse Resp BP Pulse Ox 98.9 F 78 16 171/79 H 95 08/08/19 20:00 08/08/19 20:00 08/08/19 20:00 08/08/19 20:00 08/08/19 20:00 General: In no apparent distress, Cooperative HEENT: Normocephalic Neck: Supple, JVD not distended Respiratory: Clear to auscultation bilaterally, Normal air movement Cardiovascular: No edema, Regular rate/rhythm Gastrointestinal: Soft and benign, Non-distended Musculoskeletal: No clubbing, No contractures Integumentary: No rashes, No cyanosis Neurological: Normal speech Blood work reviewed in the chart. Imagings Data: EXAM DESCRIPTION: Alexis Single View08/05/2019 11:02 pm CLINICAL HISTORY: Numbness COMPARISON: none FINDINGS: The lungs appear clear of acute infiltrate. The heart is normal size IMPRESSION: No acute abnormalities displayed Conclusions/Impression: A/ TAYLOR improving with IVF. Hypocalcemia. CKD III HTN with CKD DM II with CKD P/ Continue current POC and Medications. Change IVF 1/2NS. Start Cholecalciferol. PT as tolerated. No NSAIDs. AM labs. Daily weight. Thank you kindly for the consultation. Daughter Laura Avendaño [phone]
[2019-08-09 02:28] LABS: Urine Appearance CLEAR; Urine Bilirubin NEGATIVE (NEG); Urine Blood NEGATIVE (NEG); Urine Color YELLOW; Urine Glucose NEGATIVE (NEG); Urine Protein NEGATIVE (NEG); Urine Specific Gravity <=1.005 (1.005-1.030); Urine Urobilinogen 0.2 mg/dL (0.2-1.0); Urine pH 6.5 (5.0-7.0)
[2019-08-09 02:56] LABS: Urine Bacteria <20 /HPF (NONE SEEN); Urine Culture Reflex Order NOT NEEDED; Urine RBC NONE SEEN /HPF (NONE SEEN)
[2019-08-09 04:29] LABS: Phosphorus 2.8 mg/dL (2.5-4.9); Potassium 3.5 mmol/L (3.5-5.1); Uric Acid 4.6 mg/dL (3.5-7.2)
[2019-08-09] MEDS ORDERED: POTASSIUM CL SA 10 MEQ TAB PO ONE (04:44)
[2019-08-09] MEDS: PANTOPRAZOLE 40MG TABLET PO SCH (05:24)
[2019-08-09] MEDS: NACHLORIDE 0.45% 1,000 ML IV SCH (05:27)
[2019-08-09] MEDS: INSULIN -REGULAR HUMAN 50 UNIT/0.5 ML ML SQ SCH ×4 (07:30→20:38)
[2019-08-09] MEDS: ASPIRIN EC 81 MG TAB PO SCH (07:45)
[2019-08-09] MEDS: FOLIC ACID 1 MG TABLET PO SCH (07:45)
[2019-08-09] MEDS: ENOXAPARIN 40 MG/0.4 ML SQ SCH (07:45)
[2019-08-09] MEDS: FENOFIBRATE 160 MG TAB PO SCH (07:45)
[2019-08-09] MEDS: VITAMIN D 5,000 UNIT CAP PO SCH (07:45)
[2019-08-09] MEDS: [UNRECOGNIZED DRUG - OTHER] OPTH SCH ×2 (07:46→15:03)
[2019-08-09] MEDS: DORZOLAMIDE HCL OPTH SCH ×2 (07:46→15:03)
--- NOTE | 2019-08-09 08:11 | ECHO ---
HEIGHT: 5 ft 5 in WEIGHT: 138 lb 4.8 oz DATE OF STUDY: 08/08/[address]: sherman bailey 2-DIMENSIONAL: YES M.MODE: YES DOPPLER: YES COLOR FLOW: YES TDS: NO PORTABLE: NO DEFINITY: NO BUBBLE STUDY: NO DIAGNOSIS: STROKE CARDIAC HISTORY: CATHERIZATION: NO SURGERY: NO PROSTHETIC VALVE: NO PACEMAKER: NO MEASUREMENTS (cm) DIASTOLIC (NORMALS) SYSTOLIC (NORMALS) IVSd 1.3 (0.6-1.2) LA Diam 3.7 (1.9-4.0) LVEF 69% LVIDd 3.2 (3.5-5.7) LVIDs 2.0 (2.0-3.5) %FS 38% LVPWd 1.4 (0.6-1.2) Ao Diam 2.6 (2.0-3.7) 2 DIMENSIONAL ASSESSMENT: RIGHT ATRIUM: NORMAL LEFT ATRIUM: NORMAL RIGHT VENTRICLE: NORMAL LEFT VENTRICLE: MILD LEFT VENTRICULAR HYPERTROPHY TRICUSPID VALVE: NORMAL MITRAL VALVE: NORMAL PULMONIC VALVE: NORMAL AORTIC VALVE: NORMAL PERICARDIAL EFFUSION: NONE AORTIC ROOT: NORMAL LEFT VENTRICULAR WALL MOTION: HYPERDYNAMIC LEFT VENTRICLE, EJECTION FRACTION 65-70%. DOPPLER/COLOR FLOW: NORMAL. COMMENTS: HYPERDYNAMIC LEFT VENTRICLE WITH EJECTION FRACTION OF 65-70%. NORMAL WALL MOTION. MILD LEFT VENTRICULAR HYPERTROPHY. DIASTOLIC DYSFUNCTION. TECHNOLOGIST: CHARLIE CAI
[2019-08-09] MEDS: HYDRALAZINE HCL 20 MG/ML VIAL IV PRN ×2 (11:34→15:05)
[2019-08-09] MEDS ORDERED: BISACODYL 10 MG RECTAL SUPP PR PRN (14:27)
[2019-08-09] MEDS: CLOPIDOGREL 75 MG TABLET PO SCH (16:16)
[2019-08-09] MEDS: ATORVASTATIN 40 MG TAB PO SCH (21:23)
--- NOTE | 2019-08-09 22:26 | P.PN ---
Date of Service: 08/09/19 Vital Signs Temp Pulse Resp BP Pulse Ox 97.4 F 90 18 178/92 H 97 08/09/19 16:00 08/09/19 16:00 08/09/19 16:00 08/09/19 16:00 08/09/19 16:00 Medications Aspirin (Aspirin Ec) 81 mg PO DAILY [facility] Stop: 09/09/19 09:01 Atorvastatin Calcium (Lipitor) 40 mg PO BEDTIME [facility] Stop: 09/07/19 21:01 Last Admin: 08/09/19 21:23 Dose: 40 mg Documented by: Bisacodyl (Dulcolax) 10 mg [place] Q12H PRN PRN Reason: CONSTIPATION Stop: 08/12/19 14:28 Bisoprolol Fumarate (Ziac 2.5/6.25) 1 tab PO DAILY PRN PRN Reason: high BP Cholecalciferol (Vitamin D 5,000 Iu Cap) 5,000 unit PO DAILY [facility] Stop: 09/08/19 09:01 Last Admin: 08/09/19 07:45 Dose: 5,000 unit Documented by: Clopidogrel Bisulfate (Plavix) 75 mg PO DAILY [facility] Stop: 09/08/19 17:01 Last Admin: 08/09/19 16:16 Dose: 75 mg Documented by: Cyanocobalamin (Vitamin B-12) 1,000 mcg PO Q48H [facility] Stop: 09/07/19 09:01 Last Admin: 08/08/19 08:11 Dose: 1,000 mcg Documented by: Dextrose (Dextrose 50% Syringe/Vial) 12.5 gm IV PRN PRN; Protocol PRN Reason: HYPOGLYCEMIA Stop: 09/07/19 17:29 Enoxaparin Sodium (Lovenox 40 Mg Inj) 40 mg SQ DAILY [facility] Stop: 09/05/19 09:01 Last Admin: 08/09/19 07:45 Dose: 40 mg Documented by: Fenofibrate (Tricor) 160 mg PO DAILY [facility] Stop: 09/06/19 09:01 Last Admin: 08/09/19 07:45 Dose: 160 mg Documented by: Folic Acid (Folic Acid) 1 mg PO DAILY [facility] Stop: 09/08/19 09:01 Last Admin: 08/09/19 07:45 Dose: 1 mg Documented by: Glucagon (Glucagen) 1 mg IM 1X PRN; Protocol PRN Reason: HYPOGLYCEMIA Stop: 09/07/19 17:29 Home Med (Latanoprost/Pf [Latanoprost 0.005% Eye Drop]) 1 drop OPTH 2330 [facility] Stop: 09/06/19 21:01 Last Admin: 08/09/19 21:24 Dose: 1 drop Documented by: Home Med (Dorzolamide Hcl/Timolol Maleat [Dorzolamide-Timolol Eye Drops]) 1 drop OPTH BID@0800,1600 [facility] Stop: 09/06/19 17:01 Last Admin: 08/09/19 15:03 Dose: 1 drop Documented by: Hydralazine HCl (Apresoline) 10 mg IV Q4HP PRN PRN Reason: Titrate to SBP (MUST DEFINE) Stop: 09/05/19 02:14 Last Admin: 08/09/19 15:05 Dose: 10 mg Documented by: Insulin Human Regular (Novolin -R) 0 unit SQ ACHS [facility]; Protocol Stop: 09/07/19 21:01 Last Admin: 08/09/19 20:38 Dose: Not Given Documented by: Ondansetron HCl (Zofran) 4 mg IV Q4H PRN PRN Reason: NAUSEA / VOMITING Stop: 09/05/19 11:08 Last Admin: 08/06/19 16:33 Dose: 4 mg Documented by: Pantoprazole Sodium (Protonix Tab) 40 mg PO DAILYAC [facility] Stop: 09/05/19 06:31 Last Admin: 08/09/19 05:24 Dose: 40 mg Documented by: Ramipril (Altace) 5 mg PO BEDTIME [facility] Stop: 09/08/19 22:31 Sodium Chloride (Normal Saline Flush) 10 ml IV BID [facility] Stop: 09/05/19 09:01 Last Admin: 08/09/19 21:24 Dose: 10 ml Documented by: Microbiology Results 08/06/19 03:52 Nasopharnyx Coronavirus COVID-19 PCR - Final Assessment/ Plan: Nephrology Feeling better. CPS stable without CP or SOB. No acute events overnight. Vitals, medications, blood work and imaging reviewed in the chart. General: In no apparent distress, Cooperative HEENT: Normocephalic Neck: Supple, JVD not distended Respiratory: Clear to auscultation bilaterally, Normal air movement Cardiovascular: No edema, Regular rate/rhythm Gastrointestinal: Soft and benign, Non-distended Musculoskeletal: No clubbing, No contractures Integumentary: No rashes, No cyanosis Neurological: Normal speech Blood work reviewed in the chart. Imagings Data: EXAM DESCRIPTION: Alexis Single View08/05/2019 11:02 pm CLINICAL HISTORY: Numbness COMPARISON: none FINDINGS: The lungs appear clear of acute infiltrate. The heart is normal size IMPRESSION: No acute abnormalities displayed Conclusions/Impression: A/ TAYLOR improving with IVF. Hypocalcemia. CKD III HTN with CKD DM II with CKD P/ Continue current POC and Medications. Continue IVF. Start Ramipril 5mg qhs. PT as tolerated. Follow up with neurology. No NSAIDs. AM labs. Daily weight.
[2019-08-10] MEDS: LORAZEPAM 0.5 MG TABLET PO PRN ×2 (00:37→22:59)
[2019-08-10] MEDS: ramipriL 5 MG CAP PO SCH ×2 (00:37→20:08)
[2019-08-10] MEDS: PANTOPRAZOLE 40MG TABLET PO SCH (05:52)
[2019-08-10 06:22] LABS: Potassium 3.9 mmol/L (3.5-5.1)
[2019-08-10] MEDS: INSULIN -REGULAR HUMAN 50 UNIT/0.5 ML ML SQ SCH ×4 (07:30→20:08)
[2019-08-10] MEDS ORDERED: POTASSIUM CL SA 10 MEQ TAB PO ONE (09:00)
[2019-08-10] MEDS: [UNRECOGNIZED DRUG - OTHER] OPTH SCH ×2 (09:15→17:24)
[2019-08-10] MEDS: CYANOCOBALAMIN 1,000 MCG TAB PO SCH (09:15)
[2019-08-10] MEDS: VITAMIN D 5,000 UNIT CAP PO SCH (09:15)
[2019-08-10] MEDS: FENOFIBRATE 160 MG TAB PO SCH (09:15)
[2019-08-10] MEDS: DORZOLAMIDE HCL OPTH SCH ×2 (09:15→17:24)
[2019-08-10] MEDS: ASPIRIN EC 81 MG TAB PO SCH (09:15)
[2019-08-10] MEDS: FOLIC ACID 1 MG TABLET PO SCH (09:15)
[2019-08-10] MEDS: ENOXAPARIN 40 MG/0.4 ML SQ SCH (09:17)
[2019-08-10] MEDS: CLOPIDOGREL 75 MG TABLET PO SCH (09:17)
--- NOTE | 2019-08-10 19:14 | P.PN ---
Date of Service: 08/10/19 Vital Signs Temp Pulse Resp BP Pulse Ox 97.7 F 77 18 141/73 H 98 08/10/19 16:00 08/10/19 18:33 08/10/19 16:00 08/10/19 18:33 08/10/19 16:00 Medications Aspirin (Aspirin Ec) 81 mg PO DAILY [facility] Stop: 09/09/19 09:01 Last Admin: 08/10/19 09:15 Dose: 81 mg Documented by: Atorvastatin Calcium (Lipitor) 40 mg PO BEDTIME [facility] Stop: 09/07/19 21:01 Last Admin: 08/09/19 21:23 Dose: 40 mg Documented by: Bisacodyl (Dulcolax) 10 mg [place] Q12H PRN PRN Reason: CONSTIPATION Stop: 08/12/19 14:28 Bisoprolol Fumarate (Ziac 2.5/6.25) 1 tab PO DAILY PRN PRN Reason: high BP Cholecalciferol (Vitamin D 5,000 Iu Cap) 5,000 unit PO DAILY [facility] Stop: 09/08/19 09:01 Last Admin: 08/10/19 09:15 Dose: 5,000 unit Documented by: Clopidogrel Bisulfate (Plavix) 75 mg PO DAILY [facility] Stop: 09/08/19 17:01 Last Admin: 08/10/19 09:17 Dose: 75 mg Documented by: Cyanocobalamin (Vitamin B-12) 1,000 mcg PO Q48H [facility] Stop: 09/07/19 09:01 Last Admin: 08/10/19 09:15 Dose: 1,000 mcg Documented by: Dextrose (Dextrose 50% Syringe/Vial) 12.5 gm IV PRN PRN; Protocol PRN Reason: HYPOGLYCEMIA Stop: 09/07/19 17:29 Enoxaparin Sodium (Lovenox 40 Mg Inj) 40 mg SQ DAILY [facility] Stop: 09/05/19 09:01 Last Admin: 08/10/19 09:17 Dose: 40 mg Documented by: Fenofibrate (Tricor) 160 mg PO DAILY [facility] Stop: 09/06/19 09:01 Last Admin: 08/10/19 09:15 Dose: 160 mg Documented by: Folic Acid (Folic Acid) 1 mg PO DAILY [facility] Stop: 09/08/19 09:01 Last Admin: 08/10/19 09:15 Dose: 1 mg Documented by: Glucagon (Glucagen) 1 mg IM 1X PRN; Protocol PRN Reason: HYPOGLYCEMIA Stop: 09/07/19 17:29 Home Med (Latanoprost/Pf [Latanoprost 0.005% Eye Drop]) 1 drop OPTH 2330 [facility] Stop: 09/06/19 21:01 Last Admin: 08/09/19 21:24 Dose: 1 drop Documented by: Home Med (Dorzolamide Hcl/Timolol Maleat [Dorzolamide-Timolol Eye Drops]) 1 drop OPTH BID@0800,1600 [facility] Stop: 09/06/19 17:01 Last Admin: 08/10/19 17:24 Dose: 1 drop Documented by: Hydralazine HCl (Apresoline) 10 mg IV Q4HP PRN PRN Reason: Titrate to SBP (MUST DEFINE) Stop: 09/05/19 02:14 Last Admin: 08/09/19 15:05 Dose: 10 mg Documented by: Insulin Human Regular (Novolin -R) 0 unit SQ ACHS [facility]; Protocol Stop: 09/07/19 21:01 Last Admin: 08/10/19 16:30 Dose: Not Given Documented by: Lorazepam (Ativan) 0.5 mg PO Q6H PRN PRN Reason: ANXIETY Stop: 09/09/19 00:18 Last Admin: 08/10/19 00:37 Dose: 0.5 mg Documented by: Ondansetron HCl (Zofran) 4 mg IV Q4H PRN PRN Reason: NAUSEA / VOMITING Stop: 09/05/19 11:08 Last Admin: 08/06/19 16:33 Dose: 4 mg Documented by: Pantoprazole Sodium (Protonix Tab) 40 mg PO DAILYAC [facility] Stop: 09/05/19 06:31 Last Admin: 08/10/19 05:52 Dose: 40 mg Documented by: Ramipril (Altace) 5 mg PO BEDTIME [facility] Stop: 09/08/19 23:01 Last Admin: 08/10/19 00:37 Dose: 5 mg Documented by: Sodium Chloride (Normal Saline Flush) 10 ml IV BID [facility] Stop: 09/05/19 09:01 Last Admin: 08/10/19 09:17 Dose: 10 ml Documented by: Microbiology Results 08/06/19 03:52 Nasopharnyx Coronavirus COVID-19 PCR - Final Assessment/ Plan: Nephrology Feeling better. Good urine output. CPS stable without CP or SOB. No acute events overnight. Vitals, medications, blood work and imaging reviewed in the chart. General: In no apparent distress, Cooperative HEENT: Normocephalic Neck: Supple, JVD not distended Respiratory: Clear to auscultation bilaterally, Normal air movement Cardiovascular: No edema, Regular rate/rhythm Gastrointestinal: Soft and benign, Non-distended Musculoskeletal: No clubbing, No contractures Integumentary: No rashes, No cyanosis Neurological: Normal speech Blood work reviewed in the chart. Imagings Data: EXAM DESCRIPTION: Alexis Single View08/05/2019 11:02 pm CLINICAL HISTORY: Numbness COMPARISON: none FINDINGS: The lungs appear clear of acute infiltrate. The heart is normal size IMPRESSION: No acute abnormalities displayed Conclusions/Impression: A/ TAYLOR, improved. Hypocalcemia. CKD III, stable. HTN with CKD DM II with CKD P/ Continue current POC and Medications. Hold IVF. PT as tolerated. Follow up with neurology. No NSAIDs. AM labs. Daily weight. Case reviewed with Dr. Sheffield. Case reviewed with Laura Avendaño.
[2019-08-10] MEDS: ATORVASTATIN 40 MG TAB PO SCH (20:08)
[2019-08-10] MEDS ORDERED: ramipriL 5 MG CAP PO SCH (21:00)
--- NOTE | 2019-08-10 22:12 | PN ---
Date of Progress Note: 08/10/2019 The patient states he still has some symptoms in regard to his left side, especially the funny feelin g which he describes is basically paresthesias of his arm and leg; although, he states he has some in creased strength in his lower extremity. Still having some constipation issues. Anxiety was control led with low-dose Ativan. This will be used on a p.r.n. basis. He continues to be followed by Nephr ology and the addition of Altace to the regimen. We will continue to monitor his creatinine and foll ow up in the morning, perhaps we will hear from the insurance company by then. HR/MODL Voice ID: [id number] Report ID: [id number]
--- NOTE | 2019-08-10 22:21 | PN ---
Date of Progress Note: 08/09/2019 The patient states he feels better today. He still has some fluctuations in his blood pressure. Yes terday, he was discussed with the neurologist that at this level he should be maintained for the next 24-48 hours. The physical therapy is continued and the patient has progressed some. Awaiting insura nce as far as disposition is concerned. His creatinine is down back to normal. The patient states h e is eating and drinking back to baseline. We will therefore DC the IV and continue to monitor. HR/MODL Voice ID: [id number] Report ID: [id number]
--- NOTE | 2019-08-10 23:21 | CON ---
Reason For Consultation: Consultation called because of stroke. History Of Present Illness: Mr. Avendaño is a 78-year-old right-handed patient with hypertension, gastroesophageal reflux disease, who came into [facility] on 08/06/2019 with sudden onset of left face, arm, and leg numbness, some slight left subjective hand weakness and some difficulty gett ing words out. He came to [facility] at 2244 and it was reported that symptoms began around 2144. He did take 2 aspirins at the time of his symptoms and came to [facility]. A head C T scan on arrival at [facility] was done at 2246. Patient's CT scan showed no acute ischemi c or hemorrhagic changes. The patient had an NIH Stroke Scale of 1 in the emergency room, not felt t o be a candidate for tPA given his deficit at that time by the emergency room physician being frankly very little or none. Cervical spine CT scan did show some evidence of spondylosis with mild spinal canal stenosis at C3, C4 and C5-6 and C6-7, however, those were not explaining the patient's symptoms . He was admitted for stroke workup. His echocardiogram showed an ejection fraction of 69% with hyp erdynamic left ventricle, normal wall motion, left ventricular hypertrophy, and some diastolic dysfun ction. A carotid artery ultrasound study identified mild plaque without evidence of hemodynamically significant stenosis. MRI of his brain on the following Thursday, when he came in on Thursday evening sh owed an acute nonhemorrhagic stroke in the right thalamus. 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 The neck magnet ic resonance angiogram showed 40% narrowing of the right common carotid, internal carotid artery junc tion, however, that did not explain the patient's symptoms, but the posterior circulation strokes did . Past Medical History: As indicated, including the hypertension and dyslipidemia. Family History: Hypertension in mother. Social History: No tobacco smoking, but occasional alcohol use. Allergies: NO KNOWN DRUG ALLERGIES. Current Medications: Aspirin 81 mg daily, Plavix 75 mg daily, B12 1000 mcg every other day. He is o n folic acid 1 mg daily. Lovenox 40 mg subcutaneously daily for DVT prophylaxis, Apresoline 10 mg as needed IV for blood pressure greater than systolic of 180 and ramipril 5 mg at bedtime. Review of Systems: Aside from mentioned, no fevers, chills, nausea, vomiting, myalgias, arthralgias, headache, rash, moris ght change, psychiatric complaints, or genitourinary issues. Physical Examination: Vital Signs: Blood pressure 141/73, pulse 75, respiratory rate 16 to 18, temperature 97.9, oxygen sa turation 98% on room air. Weight 139 pounds, height 5 feet 5 inches, BMI of 23. General: Mr. Avendaño was actually having therapy at the time I evaluated him with a gait belt on. He w as able to stand with assistance, use a walker. He did have difficulty placing his left leg as he tr ied to ambulate which was with a wide based gait. He used lot of arm strength to actually steady him self as he ambulated within the walker. HEENT: He is normocephalic, atraumatic. Sclerae anicteric. Oropharynx is pink and moist. Neck: Supple. Chest: Clear. Heart: Regular. Extremities: Show no edema, cyanosis, or clubbing. Neurological: He does have some difficulty with communication, perhaps language barrier, difficulty with his expression, and some difficulty with comprehension. Otherwise on cranial nerve examination, remarkable for left V1, V2, V3, decreased to light touch, pinprick, and temperature compared to the right side. He does have at least partial left homonymous hemianopia, otherwise cranial nerves are i ntact in terms of his facial symmetry and tongue and palate extrusion and elevation respectively. Mo tor examination; he does have full strength in the right upper extremity proximally and distally. Th ere may be subtle weakness in the left upper extremity at 4+ to 5-/5 proximally and distally in the l ower extremity. On the left side again subtle weakness noted around 4+ to 5-/5/. On the right lower extremity proximally and distally 5/5. Sensory exam decreased to light touch and pinprick temperatu re over the left arm and leg compared to the right arm and leg. Coordination; some mild dysmetria no marcelino in the right upper and lower extremity compared to the left side, potentially related to sensory loss from stroke. Gait is as indicated with a walker. He does have a tendency to drift over to the left, but he is able to walk within the walker with some contact guard assistance. Transfers actuall y from sit to stand position, requires some contact guard to get his positioning of his left leg prop er and holding onto the walker properly. Laboratory Studies: Complete blood count with differential is essentially unremarkable. Coagulation panel normal. Chemistries do show some dehydration with creatinine 1.33, glucose ranged 110 to 121, calcium normal at 8.6. Sodium and potassium normal, chloride slightly elevated at 109, BUN of 22. His uric acid level is normal at 4.6, magnesium normal of 2.0. Triglycerides slightly elevated to 12 1, cholesterol elevated to 202, LDL cholesterol is elevated to 119, HDL cholesterol low at 39. His c holesterol to HDL ratio is 5.18. TSH normal at 1.09. Liver function studies are normal. Urinalysis is normal. He a micro albumin test sent and that is pending. Assessment: Mr. 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 NIH Stroke Scale of 3. Plan: 1.Aspirin, Plavix, folic acid. 2.Aggressive physical, occupational, and speech therapy. 3.Permissive hypertension unless systolic blood pressure is greater than 180, we will hold on antihy pertensive medications for the next 3 days, then gradually normalize blood pressures with no more ema n 10% decrease over the next several days to a week to obtain normal blood pressure readings. 4.High-dose statin to reduce LDL less than 70. 5.Patient was counseled on the multiple stroke risk factors in addition to hypertension dyslipidemia including his diet, hydration, stress reduction, use of alcohol, and physical activity in decreasing stroke risk. 6.Patient will be evaluated for admission to the acute inpatient rehabilitation unit to begin recove ry after his stroke. 7.A call was placed to the patient's daughter Dr. Laura Avendaño at . A message was left as an answering machine actually received the call. SHILOH/NKECHI Voice ID: [id number] Report ID: [id number]
[2019-08-11] MEDS: PANTOPRAZOLE 40MG TABLET PO SCH (05:54)
[2019-08-11 06:27] LABS: Potassium 3.9 mmol/L (3.5-5.1)
[2019-08-11] MEDS: INSULIN -REGULAR HUMAN 50 UNIT/0.5 ML ML SQ SCH ×4 (07:30→20:30)
[2019-08-11] MEDS: ENOXAPARIN 40 MG/0.4 ML SQ SCH (07:54)
[2019-08-11] MEDS: ASPIRIN EC 81 MG TAB PO SCH (07:54)
[2019-08-11] MEDS: VITAMIN D 5,000 UNIT CAP PO SCH (07:55)
[2019-08-11] MEDS: FOLIC ACID 1 MG TABLET PO SCH (07:55)
[2019-08-11] MEDS: CLOPIDOGREL 75 MG TABLET PO SCH (07:55)
[2019-08-11] MEDS: FENOFIBRATE 160 MG TAB PO SCH (07:55)
[2019-08-11] MEDS: DORZOLAMIDE HCL OPTH SCH ×2 (07:56→15:57)
[2019-08-11] MEDS: [UNRECOGNIZED DRUG - OTHER] OPTH SCH ×2 (07:56→15:57)
[2019-08-11] MEDS ORDERED: POTASSIUM CL SA 10 MEQ TAB PO ONE (08:00)
[2019-08-11] MEDS: ATORVASTATIN 40 MG TAB PO SCH (19:59)
[2019-08-11] MEDS: ramipriL 5 MG CAP PO SCH (19:59)
--- NOTE | 2019-08-11 21:58 | P.PN ---
Date of Service: 08/11/19 Vital Signs Temp Pulse Resp BP Pulse Ox 97.4 F 79 12 141/71 H 98 08/11/19 20:00 08/11/19 20:00 08/11/19 20:00 08/11/19 20:00 08/11/19 20:00 Medications Aspirin (Aspirin Ec) 81 mg PO DAILY ALIRIO Stop: 09/09/19 09:01 Last Admin: 08/11/19 07:54 Dose: 81 mg Documented by: Atorvastatin Calcium (Lipitor) 40 mg PO BEDTIME ALIRIO Stop: 09/07/19 21:01 Last Admin: 08/11/19 19:59 Dose: 40 mg Documented by: Bisacodyl (Dulcolax) 10 mg NC Q12H PRN PRN Reason: CONSTIPATION Stop: 08/12/19 14:28 Last Admin: 08/11/19 11:25 Dose: 10 mg Documented by: Bisoprolol Fumarate (Ziac 2.5/6.25) 1 tab PO DAILY PRN PRN Reason: high BP Cholecalciferol (Vitamin D 5,000 Iu Cap) 5,000 unit PO DAILY ALIRIO Stop: 09/08/19 09:01 Last Admin: 08/11/19 07:55 Dose: 5,000 unit Documented by: Clopidogrel Bisulfate (Plavix) 75 mg PO DAILY ALIRIO Stop: 09/08/19 17:01 Last Admin: 08/11/19 07:55 Dose: 75 mg Documented by: Cyanocobalamin (Vitamin B-12) 1,000 mcg PO Q48H ALIRIO Stop: 09/07/19 09:01 Last Admin: 08/10/19 09:15 Dose: 1,000 mcg Documented by: Dextrose (Dextrose 50% Syringe/Vial) 12.5 gm IV PRN PRN; Protocol PRN Reason: HYPOGLYCEMIA Stop: 09/07/19 17:29 Enoxaparin Sodium (Lovenox 40 Mg Inj) 40 mg SQ DAILY ALIRIO Stop: 09/05/19 09:01 Last Admin: 08/11/19 07:54 Dose: 40 mg Documented by: Fenofibrate (Tricor) 160 mg PO DAILY ALIRIO Stop: 09/06/19 09:01 Last Admin: 08/11/19 07:55 Dose: 160 mg Documented by: Folic Acid (Folic Acid) 1 mg PO DAILY ALIRIO Stop: 09/08/19 09:01 Last Admin: 08/11/19 07:55 Dose: 1 mg Documented by: Glucagon (Glucagen) 1 mg IM 1X PRN; Protocol PRN Reason: HYPOGLYCEMIA Stop: 09/07/19 17:29 Home Med (Latanoprost/Pf [Latanoprost 0.005% Eye Drop]) 1 drop OPTH 2330 [facility] Stop: 09/06/19 21:01 Last Admin: 08/10/19 22:59 Dose: 1 drop Documented by: Home Med (Dorzolamide Hcl/Timolol Maleat [Dorzolamide-Timolol Eye Drops]) 1 drop OPTH BID@0800,1600 [facility] Stop: 09/06/19 17:01 Last Admin: 08/11/19 15:57 Dose: 1 drop Documented by: Hydralazine HCl (Apresoline) 10 mg IV Q4HP PRN PRN Reason: Titrate to SBP (MUST DEFINE) Stop: 09/05/19 02:14 Last Admin: 08/09/19 15:05 Dose: 10 mg Documented by: Insulin Human Regular (Novolin -R) 0 unit SQ ACHS [facility]; Protocol Stop: 09/07/19 21:01 Last Admin: 08/11/19 20:30 Dose: Not Given Documented by: Lorazepam (Ativan) 0.5 mg PO Q6H PRN PRN Reason: ANXIETY Stop: 09/09/19 00:18 Last Admin: 08/10/19 22:59 Dose: 0.5 mg Documented by: Ondansetron HCl (Zofran) 4 mg IV Q4H PRN PRN Reason: NAUSEA / VOMITING Stop: 09/05/19 11:08 Last Admin: 08/06/19 16:33 Dose: 4 mg Documented by: Pantoprazole Sodium (Protonix Tab) 40 mg PO DAILYAC [facility] Stop: 09/05/19 06:31 Last Admin: 08/11/19 05:54 Dose: 40 mg Documented by: Ramipril (Altace) 5 mg PO BEDTIME [facility] Stop: 09/08/19 23:01 Last Admin: 08/11/19 19:59 Dose: 5 mg Documented by: Sodium Chloride (Normal Saline Flush) 10 ml IV BID [facility] Stop: 09/05/19 09:01 Last Admin: 08/11/19 19:59 Dose: 10 ml Documented by: Microbiology Results 08/06/19 03:52 Nasopharnyx Coronavirus COVID-19 PCR - Final Assessment/ Plan: Nephrology Feeling better. Good urine output. CPS stable without CP or SOB. No acute events overnight. Vitals, medications, blood work and imaging reviewed in the chart. General: In no apparent distress, Cooperative HEENT: Normocephalic Neck: Supple, JVD not distended Respiratory: Clear to auscultation bilaterally, Normal air movement Cardiovascular: No edema, Regular rate/rhythm Gastrointestinal: Soft and benign, Non-distended Musculoskeletal: No clubbing, No contractures Integumentary: No rashes, No cyanosis Neurological: Normal speech Blood work reviewed in the chart. Imagings Data: EXAM DESCRIPTION: Alexis Single View08/05/2019 11:02 pm CLINICAL HISTORY: Numbness COMPARISON: none FINDINGS: The lungs appear clear of acute infiltrate. The heart is normal size IMPRESSION: No acute abnormalities displayed Conclusions/Impression: A/ TAYLOR, improved. Hypocalcemia. CKD III, stable. HTN with CKD DM II with CKD P/ Continue current POC and Medications. PT as tolerated. Follow up with neurology. No NSAIDs. AM labs. Daily weight.
--- NOTE | 2019-08-11 23:10 | PN ---
Subjective: Mr. Avendaño is doing better today. His gait is slightly improved; however, he still reports significant numbness in the left face, arm, and leg. He denies any headaches, loss or change in vision, although he does have chronic decreased peripheral vision. Objective: Vital Signs: Blood pressure 158/84, pulse 87, respiratory rate 16 to 19, temperature 97.6, oxygen saturation 99%. Mr. Avendaño is actually doing physical therapy at the time of my visit. He was able to stand and ambulate with some ataxia noted with the left leg in terms of placement. He did use a walker and had some difficulty moving the left leg into place and held the walker firmly with the right and left upper extremities. Laboratory Studies: No new blood work except glucose ranged from 109 to 151, creatinine 1.2. Assessment: Mr. Avendaño is a 78-year-old patient with multiple stroke risk factors including dyslipidemia, who has a right thalamic stroke with sensory deficits in left face, arm, and leg. He does have a slight left visual field deficits, but that is possibly chronic. He is beginning to improve from his stroke, but would improve even more with intense physical, occupational, and speech therapy. Plan: 1. Aspirin 81 mg daily. 2. Plavix 75 mg daily. 3. Lipitor 40 mg at bedtime. 4. Lovenox 40 mg subcutaneously daily. 5. Tricor 160 mg daily. 6. If he could be admitted to the inpatient rehabilitation unit at [facility], his recovery would be faster. 7. Continue Altace 5 mg at bedtime. SHILOH/NKECHI Voice ID: [id number] Report ID: [id number] VIPIN
[2019-08-12] MEDS: PANTOPRAZOLE 40MG TABLET PO SCH ×2 (05:25→05:31)
[2019-08-12 07:30] LABS: Potassium 4.2 mmol/L (3.5-5.1)
[2019-08-12] MEDS: INSULIN -REGULAR HUMAN 50 UNIT/0.5 ML ML SQ SCH ×4 (07:30→20:53)
[2019-08-12] MEDS: DORZOLAMIDE HCL OPTH SCH ×2 (08:00→15:43)
[2019-08-12] MEDS: [UNRECOGNIZED DRUG - OTHER] OPTH SCH ×2 (08:00→15:43)
[2019-08-12] MEDS: FOLIC ACID 1 MG TABLET PO SCH (09:06)
[2019-08-12] MEDS: CYANOCOBALAMIN 1,000 MCG TAB PO SCH (09:06)
[2019-08-12] MEDS: ASPIRIN EC 81 MG TAB PO SCH (09:06)
[2019-08-12] MEDS: ENOXAPARIN 40 MG/0.4 ML SQ SCH (09:06)
[2019-08-12] MEDS: VITAMIN D 5,000 UNIT CAP PO SCH (09:06)
[2019-08-12] MEDS: CLOPIDOGREL 75 MG TABLET PO SCH (09:06)
[2019-08-12] MEDS: FENOFIBRATE 160 MG TAB PO SCH (09:07)
[2019-08-12] MEDS: HYDRALAZINE HCL 20 MG/ML VIAL IV PRN (16:16)
[2019-08-12] MEDS ORDERED: MAGNESIUM OXIDE 400 MG TAB PO ONE (18:00)
[2019-08-12] MEDS ORDERED: BISOPROLOL/HCTZ 2.5/6.25MG TAB PO PRN (18:52)
[2019-08-12] MEDS: ATORVASTATIN 40 MG TAB PO SCH (20:48)
[2019-08-12] MEDS: ramipriL 5 MG CAP PO SCH (20:49)
[2019-08-12] MEDS: LORAZEPAM 0.5 MG TABLET PO PRN (20:49)
[2019-08-12] MEDS: DOCUSATE NA 100 MG CAP PO SCH (20:50)
--- NOTE | 2019-08-12 21:59 | P.PN ---
Date of Service: 08/12/19 Vital Signs Temp Pulse Resp BP Pulse Ox 98.2 F 101 H 16 185/84 H 97 08/12/19 20:00 08/12/19 20:49 08/12/19 20:00 08/12/19 20:49 08/12/19 20:00 Medications Aspirin (Aspirin Ec) 81 mg PO DAILY ALIRIO Stop: 09/09/19 09:01 Last Admin: 08/12/19 09:06 Dose: 81 mg Documented by: Atorvastatin Calcium (Lipitor) 40 mg PO BEDTIME ALIRIO Stop: 09/07/19 21:01 Last Admin: 08/12/19 20:48 Dose: 40 mg Documented by: Bisoprolol Fumarate (Ziac 2.5/6.25) 1 tab PO DAILY ALIRIO Stop: 09/12/19 09:01 Cholecalciferol (Vitamin D 5,000 Iu Cap) 5,000 unit PO DAILY ALIRIO Stop: 09/08/19 09:01 Last Admin: 08/12/19 09:06 Dose: 5,000 unit Documented by: Clopidogrel Bisulfate (Plavix) 75 mg PO DAILY ALIRIO Stop: 09/08/19 17:01 Last Admin: 08/12/19 09:06 Dose: 75 mg Documented by: Cyanocobalamin (Vitamin B-12) 1,000 mcg PO Q48H ALIRIO Stop: 09/07/19 09:01 Last Admin: 08/12/19 09:06 Dose: 1,000 mcg Documented by: Dextrose (Dextrose 50% Syringe/Vial) 12.5 gm IV PRN PRN; Protocol PRN Reason: HYPOGLYCEMIA Stop: 09/07/19 17:29 Docusate Sodium (Colace Cap) 100 mg PO BID ALIRIO Stop: 09/11/19 21:01 Last Admin: 08/12/19 20:50 Dose: 100 mg Documented by: Enoxaparin Sodium (Lovenox 40 Mg Inj) 40 mg SQ DAILY ALIRIO Stop: 09/05/19 09:01 Last Admin: 08/12/19 09:06 Dose: 40 mg Documented by: Fenofibrate (Tricor) 160 mg PO DAILY ALIRIO Stop: 09/06/19 09:01 Last Admin: 08/12/19 09:07 Dose: 160 mg Documented by: Folic Acid (Folic Acid) 1 mg PO DAILY ALIRIO Stop: 09/08/19 09:01 Last Admin: 08/12/19 09:06 Dose: 1 mg Documented by: Glucagon (Glucagen) 1 mg IM 1X PRN; Protocol PRN Reason: HYPOGLYCEMIA Stop: 09/07/19 17:29 Home Med (Latanoprost/Pf [Latanoprost 0.005% Eye Drop]) 1 drop OPTH 2330 [facility] Stop: 09/06/19 21:01 Last Admin: 08/11/19 22:56 Dose: 1 drop Documented by: Home Med (Dorzolamide Hcl/Timolol Maleat [Dorzolamide-Timolol Eye Drops]) 1 d rop OPTH BID@0800,1600 [facility] Stop: 09/06/19 17:01 Last Admin: 08/12/19 15:43 Dose: 1 drop Documented by: Hydralazine HCl (Apresoline) 10 mg IV Q4HP PRN PRN Reason: Titrate to SBP (MUST DEFINE) Stop: 09/05/19 02:14 Last Admin: 08/12/19 16:16 Dose: 10 mg Documented by: Insulin Human Regular (Novolin -R) 0 unit SQ ACHS [facility]; Protocol Stop: 09/07/19 21:01 Last Admin: 08/12/19 20:53 Dose: Not Given Documented by: Lorazepam (Ativan) 0.5 mg PO Q6H PRN PRN Reason: ANXIETY Stop: 09/09/19 00:18 Last Admin: 08/12/19 20:49 Dose: 0.5 mg Documented by: Magnesium Oxide (Mag 0x Tab) 400 mg PO BEDTIME [facility] Stop: 09/12/19 21:01 Ondansetron HCl (Zofran) 4 mg IV Q4H PRN PRN Reason: NAUSEA / VOMITING Stop: 09/05/19 11:08 Last Admin: 08/06/19 16:33 Dose: 4 mg Documented by: Pantoprazole Sodium (Protonix Tab) 40 mg PO DAILYAC [facility] Stop: 09/05/19 06:31 Last Admin: 08/12/19 05:31 Dose: 40 mg Documented by: Ramipril (Altace) 5 mg PO BEDTIME [facility] Stop: 09/08/19 23:01 Last Admin: 08/12/19 20:49 Dose: 5 mg Documented by: Sodium Chloride (Normal Saline Flush) 10 ml IV BID [facility] Stop: 09/05/19 09:01 Last Admin: 08/12/19 20:50 Dose: 10 ml Documented by: Microbiology Results 08/06/19 03:52 Nasopharnyx Coronavirus COVID-19 PCR - Final Assessment/ Plan: Nephrology Doing well except for constipation. Episode of HTN today. CPS stable without CP or SOB. No acute events overnight. Vitals, medications, blood work and imaging reviewed in the chart. General: In no apparent distress, Cooperative HEENT: Normocephalic Neck: Supple, JVD not distended Respiratory: Clear to auscultation bilaterally, Normal air movement Cardiovascular: No edema, Regular rate/rhythm Gastrointestinal: Soft and benign, Non-distended Musculoskeletal: No clubbing, No contractures Integumentary: No rashes, No cyanosis Neurological: Normal speech Blood work reviewed in the chart. Imagings Data: EXAM DESCRIPTION: Alexis Single View08/05/2019 11:02 pm CLINICAL HISTORY: Numbness COMPARISON: none FINDINGS: The lungs appear clear of acute infiltrate. The heart is normal size IMPRESSION: No acute abnormalities displayed Conclusions/Impression: A/ TAYLOR, variable. Hypocalcemia. CKD III, stable. HTN with CKD DM II with CKD P/ Continue current POC and Medications. Consider titrating Ziac. Give MagOx for constipation. PT as tolerated. Follow up with neurology. No NSAIDs. AM labs. Daily weight.
[2019-08-13] MEDS: PANTOPRAZOLE 40MG TABLET PO SCH (06:31)
[2019-08-13] MEDS: INSULIN -REGULAR HUMAN 50 UNIT/0.5 ML ML SQ SCH ×4 (07:30→20:06)
[2019-08-13] MEDS: DORZOLAMIDE HCL OPTH SCH ×2 (08:46→16:24)
[2019-08-13] MEDS: ENOXAPARIN 40 MG/0.4 ML SQ SCH (08:46)
[2019-08-13] MEDS: CLOPIDOGREL 75 MG TABLET PO SCH (08:46)
[2019-08-13] MEDS: DOCUSATE NA 100 MG CAP PO SCH ×2 (08:46→20:08)
[2019-08-13] MEDS: [UNRECOGNIZED DRUG - OTHER] OPTH SCH ×2 (08:46→16:24)
[2019-08-13] MEDS: ASPIRIN EC 81 MG TAB PO SCH (08:46)
[2019-08-13] MEDS: FOLIC ACID 1 MG TABLET PO SCH (08:46)
[2019-08-13] MEDS: VITAMIN D 5,000 UNIT CAP PO SCH (08:46)
[2019-08-13] MEDS: FENOFIBRATE 160 MG TAB PO SCH (08:46)
[2019-08-13] MEDS: BISOPROLOL/HCTZ 2.5/6.25MG TAB PO SCH (09:11)
--- NOTE | 2019-08-13 13:56 | PN ---
Date of Progress Note: 08/12/2019 When seen in the morning, patient is seen stabilized as far as his blood pressure is concerned. He s tated he still had significant paresthesias and weakness specially when walking under observation and he had difficulty transferring from the bed to upright to a sitting position. In view of these find ings, we will discuss placement with the insurance company on a peer to peer review later on today. HR/MODL Voice ID: [id number] Report ID: [id number]
--- NOTE | 2019-08-13 14:08 | PN ---
Date of Progress Note: 08/13/2019 The patient seems stable until late yesterday afternoon after I had talked to the doctor for the plac ement. After much discussion, he was granted a 5-day stay in our rehab unit. However, a couple hour s later, he was in the bathroom straining, has had constipation problem, and became dyspneic, diaphor etic. Blood pressure was 200 and was given hydralazine IV and restarted on his beta blockers. Stabi lized in the evening and today, his blood pressures are remaining in a satisfactory range. He states he still has the same what he describes as funny feelings in his arm and his legs. However, he stat es possibly there has been some increase in his strength. EKG did show some ST changes and minimally elevated cardiac enzymes. Therefore, cardiology consult was obtained. It was felt unlikely to be a cardiac origin. All 3 EKGs in the hospital are the same showing some ST changes and questionable in ferior infarct. An echo will be obtained and the plan is to transfer the patient up to rehab on ay morning unless some contraindication. An echo will also be obtained. HR/MODL Voice ID: [id number] Report ID: [id number]
--- NOTE | 2019-08-13 14:26 | P.PN ---
Subjective Date of Service: 08/13/19 Primary Care Provider: Dr. Sheffield Chief Complaint: Left-sided numbness bp is better but still on higher side with sbp in 150-160 range. patient thinks bp went up with constipation. now feeling better. has had bm twice today. alert. breathing comfortably/sitting in chair. vs stable sbp 150-160 lungs cta cvs regular rr abd soft/nt/bs + ext trace edema a/p: htn: start coreg 3.125mg twice daily (hold for sbp <110 and/or pulse <55). discussed with nurse to inform Dr. Nickerson start low dose amlodipine once daily (hold for sbp<120). fall precautions. Physical Examination - Vital Signs Temperature: 98.3 F Blood Pressure: 153/79 Pulse: 75 Respirations: 16 Pulse Ox (%): 98 - Studies Medications List Reviewed: Yes Assessment And Plan Physician Review Additional Text: Impression: Left sided upper ext weakness/numbness/Dizziness secondary to Acute nonhemorrhagic CVA involving the right thalamus severe intracranial atherosclerotic changes with Truncated right posterior cerebral artery HTN DM type 2 Mixed hyperlipidemia Acute on chronic renal disease stage 3 Plan: Continue with ASA, lipitor, tricor, folic acid and DVT prophylaxis. Await recommendations by Neurology. Continue witth IV fluids. Continue with PT, OT. Continue with Nephrology recommendations. Continue with treatment of HTN. Will continue with accucheck and sliding scale for now. He may required Home health with PT. Cased discussed with his PCP Dr. Sheffield who will take over the patient tomorrow.
--- NOTE | 2019-08-13 16:11 | CON ---
The patient was admitted on 08/08/2019, by Dr. Sheffield and Dr. Manzanares. Reason For Admission: Acute CVA. Reason For Consultation: Elevated troponin. History Of Present Illness: Mr. Avendaño is a 78-year-old, male, who has multiple cardiac risk fac tors for heart disease and stroke. He has hypertension, dyslipidemia, diabetes, chronic renal diseas e. He also has a history of gastroesophageal reflux disease. He basically came in with an acute CVA . Had a negative carotid, negative EKG, negative chest x-ray, and negative CT of his head. Echocard iogram showed hyperdynamic ejection fraction. He was hypocalcemic. His creatinine was 1.37. His tr oponin was 0.08. I am not so sure why the troponin was ordered. The patient denied any chest pain. 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 He is being evaluated by Neurology and I believe he has been accepted for inpatient rehab. No cardiac symptoms reported. Past Medical History: As stated above. Allergies: NONE. Review of Systems: Negative. Social History: Negative. Family History: Noncontributory. Medications: At home included bisoprolol with hydrochlorothiazide, Tricor, and Prilosec. Physical Examination: General: He was pleasant. Speech was intact. He complained of left-sided weakness. No chest pain. Vital Signs: Stable. Afebrile. Sinus rhythm. HEENT: Negative. Neck: Supple with no bruits. Chest: Clear. Cardiac: Revealed a regular rhythm and rate. No murmurs, gallops, or rubs. Abdomen: Benign. Extremities: Revealed no clubbing, cyanosis, or edema. Diagnostic Data: As stated earlier. Impression And Plan: 1.Status post recent acute cerebrovascular accident. 2.Hypertension. 3.Dyslipidemia. 4.Diabetes. 5.Chronic renal disease. 6.Gastroesophageal reflux disease. 7.Cerebrovascular disease, intracranial. 8.Hypocalcemia. The patient has been followed by Nephrology, Neurology, as well as Dr. Sheffield and Dr. Manzanares. He is presently on aspirin, Plavix, Lipitor, Lovenox, ramipril, and hydralazine. I fully agree with his p resent regimen. He has already had an echocardiogram that showed no wall motion abnormalities. I am not concerned about the elevated troponin of 0.08. This is definitely secondary to his CVA. I do, however, recommend an outpatient stress test just because of his cardiac risk factors and his recent CVA at his convenience and I will make arrangements for that as an outpatient after the patient is do ne with his rehab. AYDE/NKECHI Voice ID: [id number] Report ID: [id number]
[2019-08-13] MEDS: carvediloL 3.125 MG TAB PO SCH (17:12)
[2019-08-13] MEDS: ATORVASTATIN 40 MG TAB PO SCH (20:08)
[2019-08-13] MEDS: ramipriL 5 MG CAP PO SCH (20:09)
[2019-08-13] MEDS: LORAZEPAM 0.5 MG TABLET PO PRN (20:09)
[2019-08-13] MEDS: MAGNESIUM OXIDE 400 MG TAB PO SCH (20:09)
[2019-08-14] MEDS: carvediloL 3.125 MG TAB PO SCH ×2 (05:18→18:05)
[2019-08-14] MEDS: PANTOPRAZOLE 40MG TABLET PO SCH (05:18)
[2019-08-14 05:26] VITALS: BMI 23.1
[2019-08-14] MEDS: INSULIN -REGULAR HUMAN 50 UNIT/0.5 ML ML SQ SCH ×4 (07:30→20:19)
[2019-08-14] MEDS: FOLIC ACID 1 MG TABLET PO SCH (08:39)
[2019-08-14] MEDS: VITAMIN D 5,000 UNIT CAP PO SCH (08:39)
[2019-08-14] MEDS: BISOPROLOL/HCTZ 2.5/6.25MG TAB PO SCH (08:40)
[2019-08-14] MEDS: FENOFIBRATE 160 MG TAB PO SCH (08:40)
[2019-08-14] MEDS: CLOPIDOGREL 75 MG TABLET PO SCH (08:40)
[2019-08-14] MEDS: ASPIRIN EC 81 MG TAB PO SCH (08:40)
[2019-08-14] MEDS: AMLODIPINE 2.5 MG TAB PO SCH (08:40)
[2019-08-14] MEDS: DOCUSATE NA 100 MG CAP PO SCH ×2 (08:40→20:34)
[2019-08-14] MEDS: ENOXAPARIN 40 MG/0.4 ML SQ SCH (08:41)
[2019-08-14] MEDS: CYANOCOBALAMIN 1,000 MCG TAB PO SCH (08:41)
[2019-08-14] MEDS: DORZOLAMIDE HCL OPTH SCH ×2 (08:42→16:21)
[2019-08-14] MEDS: [UNRECOGNIZED DRUG - OTHER] OPTH SCH ×2 (08:42→16:21)
[2019-08-14] MEDS: ramipriL 5 MG CAP PO SCH (20:33)
[2019-08-14] MEDS: MAGNESIUM OXIDE 400 MG TAB PO SCH (20:34)
[2019-08-14] MEDS: ATORVASTATIN 40 MG TAB PO SCH (20:34)
[2019-08-15] MEDS: PANTOPRAZOLE 40MG TABLET PO SCH (05:24)
[2019-08-15] MEDS: carvediloL 3.125 MG TAB PO SCH (05:24)
[2019-08-15 06:58] LABS: Potassium 4.4 mmol/L (3.5-5.1)
[2019-08-15] MEDS: INSULIN -REGULAR HUMAN 50 UNIT/0.5 ML ML SQ SCH ×2 (07:30→11:30)
[2019-08-15] MEDS: BISOPROLOL/HCTZ 2.5/6.25MG TAB PO SCH (08:54)
[2019-08-15] MEDS: FOLIC ACID 1 MG TABLET PO SCH (08:55)
[2019-08-15] MEDS: DOCUSATE NA 100 MG CAP PO SCH (08:55)
[2019-08-15] MEDS: FENOFIBRATE 160 MG TAB PO SCH (08:55)
[2019-08-15] MEDS: VITAMIN D 5,000 UNIT CAP PO SCH (08:55)
[2019-08-15] MEDS: ASPIRIN EC 81 MG TAB PO SCH (08:55)
[2019-08-15] MEDS: CLOPIDOGREL 75 MG TABLET PO SCH (08:55)
[2019-08-15] MEDS: AMLODIPINE 2.5 MG TAB PO SCH (08:55)
[2019-08-15] MEDS: ENOXAPARIN 40 MG/0.4 ML SQ SCH (08:55)
[2019-08-15] MEDS: DORZOLAMIDE HCL OPTH SCH (08:56)
[2019-08-15] MEDS: [UNRECOGNIZED DRUG - OTHER] OPTH SCH (08:56)
[2019-08-15 09:56] VITALS: O2SAT 97
--- NOTE | 2019-08-15 10:46 | PN ---
Date of Progress Note: 08/15/2019 History: The patient states he feels okay this morning. Still has difficulty with his leg supportin g him. The upper extremities have improved somewhat. Paresthesias still present more significantly i n the lower and he has problems ambulating without assistance. His blood pressure seems to be stable . His cardiac workup as such is also stable. He can be transferred to rehab with bed availability bleen nassar. HR/MODL Voice ID: [id number] Report ID: [id number]
[2019-08-15 13:50] VITALS: BP 116/56; TEMP 98.1
== END 2019-08-15 13:29 | DRG 65 ==
LOC: ER 22:43 → ERHOLD 08-06 00:52 → 4TH 08-06 01:30 → 2ND 08-06 15:01 → OBSVTOIN 08-08 09:17
PROVIDERS: ADMIT Internal Medicine; ATTEND Family Medicine
DX: I63.9 Cerebral infarction, unspecified (principal); N17.9 Acute kidney failure, unspecified; N18.3 Chronic kidney disease, stage 3 (moderate); I12.9 Hypertensive chronic kidney disease with stage 1 through stage 4 chronic kidney disease, or unspecified chronic kidney disease; K21.9 Gastro-esophageal reflux disease without esophagitis; R29.701 NIHSS score 1; E78.2 Mixed hyperlipidemia; E83.51 Hypocalcemia; E11.22 Type 2 diabetes mellitus with diabetic chronic kidney disease; K59.00 Constipation, unspecified; Z20.828 Contact with and (suspected) exposure to other viral communicable diseases
CPT/HCPCS: 36415; 70450; 70544; 70549; 70553; 71045; 72125; 80048; 80061; 80076; 81001; 82947; 83036; 83735; 84100; 84443; 84484; 84550; 85025; 85610; 85730; 92610; 93005; 93306; 93880; 96365; 96375; 97110; 97112; 97116; 97161; 97530; 99285; A9577; G0378; J0360; J1650; J2405; J7030; U0002

== ENCOUNTER 2019-08-09 16:44 | Inpatient (IN) | payer OTHER ==
--- NOTE | 2019-08-12 12:34 | R.PREADM ---
SCREENING DATE AND TIME 08/11/2019 07:50 (CDT) ANTICIPATED REHAB ADMISSION DATE 08/13/2019 REFERRING FACILITY [facility] REFERRAL DATE AND TIME 08/11/2019 07:51 (CDT) REFERRAL ROOM# [id number] ACUTE ADMIT DATE 08/08/2019 Previous Rehabilitation(s): No. 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 Waqar Azul M.D. MR# [id number] NAME MAYTE KHALIL ADDRESS [address] [facility] PHONE [facility] [id number] DATE OF 1940 AGE 78 SSN# [id number] GENDER male MARITAL STATUS RACE ADMIT FROM 02 - [facility] PRE-HOSPITAL LIVING SETTING 01 - Home (private home/apt. board/care, assisted living, correction, transitional living) HOME TYPE AND DETAILS Type of home: single family house # of levels in the residence: 2 # of steps within the residence: 17 # of steps to enter the residence: 4 PRE-HOSPITAL LIVING WITH Family/Relatives FAMILY SUPPORT Yes PRIMARY FAMILY CONTACT NAME AMALIA KHALIL PRIMARY FAMILY CONTACT PHONE [phone] PRIMARY FAMILY CONTACT RELATIONSHIP PHONE PRIMARY FAMILY CONTACT ON ADM.? no IS PRIMARY FAMILY CONTACT AUTH. REP.? no 1ST EMERGENCY CONTACT AMALIA KHALIL 1ST CONTACT PHONE [phone] 1ST CONTACT RELATIONSHIP PHONE 1ST CONTACT ON ADM. no IS 1ST CONTACT AUTH. REP.? no PHONE 2ND CONTACT ON ADM.? no PATIENT EMPLOYMENT STATUS Retired (for age) PATIENT EMPLOYER No Employer PAYOR INFORMATION: 1ST PAYOR NAME Maribel 1ST PAYOR PHONE 1ST PAYOR POLICY ID [id number] INJURY/ILLNESS DUE TO ACCIDENT? No ANOTHER CONSTITUTION PARTY RESPONSIBLE? No PRIMARY REHAB/ACUTE DIAGNOSIS: CVA REHAB IMPAIRMENT CATEGORY (JAVON): 01 Stroke (STR) MEETS 60% rule AFFECTED EXTREMITIES: LLE, and LUE PRIMARY DIAGNOSIS-RELATED SURGERIES: HYPERTENSION HYPERLIPIDEMIA SUMMARY OF ACUTE HOSPITALIZATION: Pt. is a 78 yo Right-handed male. On 08/08/2019 Pt. presented to [facility] with sudden onset of left-side weakness. On 08/11/2019 he was admitted to [facility] with diagnosis CVA. His impairment category is Stroke 01 - Left Body (Right Brain) (01.1). Pre-morbidly, Pt. was independent/mod-I in Safety Awareness, Social Cognition, Transfers Control, Sph incter Control, and Self-Care; and he had good Balance, Endurance, Communication, and Locomotion. Currently, he has deficits of Locomotion, Balance, Safety Awareness, Social Cognition, Sphincter Cont rol, Self-Care, and Endurance. Pt. is now referred to [facility] for acute in-patient rehabilitation in order to maximize patient's functional independence in activities of daily living, strength, ROM, and mobi lity. Patient has realistic goal of being discharged at assistance level 3-modA to reside at Home with Fam carmel/Relatives. Mr. Mayte Khalil is a 78 year old man that lives at home independently with his . They have a two- story home with the restroom being upstairs. He was very independent before his stroke. He has a history of hypertension, hyperlipidemia and presented to the emergency department with a complaint of sudden onset of left-sided numbness and subjective weakness in the left hand. His systolic blood pressure in the ED was elevated to 220. Patient took 2 baby aspirin before coming to the ED. EKG in the ED showed sinus rhythm. CT head showed no acute disease. Patient was given IV labetalol and IV hydralazine to bring down his blood pressure. Patient was admitted to [facility] not followed up for procedure at this time. [facility] Inpatient rehabilitation and is hemodynamically stable with relatively stable labs. He is now medically stable but in need of 24 hour nursing, doctor supervision and oversight while reasonably expected to participate in 3 hours of therapy a day/15 hours per week and receive care with intensive interdisciplinary approach. COVID-19 screening performed; spoke with patient via phone. Patient denies new onset of fever, cough, difficulty breathing, sore throat, body aches and non-allergy nasal congestion in the past 24 hours. Patient denies travel outside of [place] in the past 14 days. Patient denies any contact with someone who has a confirmed diagnosis of or is under investigation for COVID-19 in the past 14 days. PAST MEDICAL HISTORY HYPERTENSION HYPERLIPIDEMIA MEDICATION ALLERGIES: No Known Drug Allergies (NKDA) ENVIRONMENTAL ALLERGIES: - Substance Allergies None Known - Other Allergies None Known CODE STATUS: Full code WEIGHT/HEIGHT/BMI: WEIGHT 153 lbs HEIGHT 5' 5" BMI 25.5 DIET: - Diet Type Regular - Diet - Solid Texture Regular - Diet - Liquid Texture Regular - Tube Feed N/A REVIEW OF SYSTEMS: - Gen Alert and awake Lying in bed No apparent distress Oriented to: person, time, and place - Vital Signs Temperature: 97.7 F SBP/DBP: 140/78 Pulse: 85 Resp: 19 Vital signs stable, afebrile - CVS RRR VITAL SIGNS Temperature: 97.7 F SBP/DBP: 140/78 Pulse: 85 Resp: 19 Vital signs stable, afebrile MEDICATIONS/TREATMENT: Other- See attached MAR (Medication Administration Record). CURRENT SPHINCTER CONTROL: Pre-hospital bladder status: continent # of bladder accidents in the last 7 days prior to screenin Pre-hospital bowel status: continent # of bowel accidents in the last 7 days prior to screenin Last Bowel Movement Date: 08/11/2019 CURRENT LOCOMOTION STATUS: distance walked 170 feet with rolling walker DETAILED CURRENT FUNCTIONAL STATUS: - Bladder accident frequency: Ind - No accidents in the past 7 days - Bowel accident frequency: Ind - No accidents in the past 7 days - Walking score based on distance walked: 0(N/A) score based on distance walked: 3(>=150ft) - Wheelchair score based on distance traveled: 0(N/A) QI SCORES: - Self-Care A. Eating 03-Partial/moderate assistance B. Oral hygiene 03-Partial/moderate assistance C. Toileting hygiene 03-Partial/moderate assistance E. Shower/bathe self 03-Partial/moderate assistance F. Upper body dressing 04-Supervision or touching assistance G. Lower body dressing 03-Partial/moderate assistance H. Putting on/taking off footwear 03-Partial/moderate assistance - Mobility A. Roll left and right 04-Supervision or touching assistance B. Sit to lying 03-Partial/moderate assistance C. Lying to sitting on side of bed 03-Partial/moderate assistance D. Sit to stand 03-Partial/moderate assistance E. Chair/[id number] transfer 03-Partial/moderate assistance F. Toilet transfer 03-Partial/moderate assistance G. Car transfer 88-Not attempted due to medical condition or safety concerns I. Walk 10 feet 03-Partial/moderate assistance J. Walk 50 feet with two turns 88-Not attempted due to medical condition or safety concerns K. Walk 150 feet 03-Partial/moderate assistance L. Walking 10 feet on uneven surfaces 88-Not attempted due to medical condition or safety concerns M. 1 step (curb) 88-Not attempted due to medical condition or safety concerns N. 4 steps 88-Not attempted due to medical condition or safety concerns O. 12 steps 88-Not attempted due to medical condition or safety concerns P. Picking up object 04-Supervision or touching assistance R. Wheel 50 feet with two turns 88-Not attempted due to medical condition or safety concerns S. Wheel 150 feet 03-Partial/moderate assistance - Bladder and Bowel Bladder continence Bowel continence - Endurance Good - Balance Good - Safety Awareness Good CURRENT FUNC. DEFICITS: Self-Care and Mobility CURRENT / PREVIOUS ASSISTIVE DEVICES: 3-in-1 Commode [facility] Bed Quad Cane Rolling Walker Tub Bench HISTORY OF FALLS. HAS THE PATIENT HAD TWO OR MORE FALLS IN THE PAST YEAR OR ANY FALL WITH INJURY IN T HE PAST YEAR?: No PRIOR SURGERY. DID THE PATIENT HAVE MAJOR SURGERY DURING THE 100 DAYS PRIOR TO ADMISSION?: No THERAPY NOTES FROM ACUTE CARE: Attached. SPECIAL NEEDS: - Safety Concerns Skin breakdown precautions needed due to skin breakdown risk PRECAUTIONS: - Weight Bearing Precaution WBAT left LE PATIENT NEEDS ACTIVE AND ONGOING THERAPEUTIC INTERVENTION OF MULTIPLE THERAPY DISCIPLINES, INCLUDING: - Occupational Therapy Cognitive Retraining. Visual Perceptual Training. - Dietary and Nutrition Adequate Nutrition. Nutritional Education. Nutritional Supplements. - Speech Therapy Cognitive Training. Expressive Language Skills. Memory Strategies. Receptive Language Skills. Speech Intelligibility Training. PATIENT NEEDS CLOSE MEDICAL SUPERVISION BY A REHABILITATION PHYSICIAN FOR: Coordination of Treatment Team PATIENT REQUIRES 24X7 REHAB NURSING FOR MEDICAL AND FUNCTIONAL MGT. OF THE FOLLOWING DEFICITS: Disease Management Medication Management Patient/Family Education Providing Safe Environment PATIENT REQUIRES INTENSIVE, COORDINATED INTERDISCIPLINARY APPROACH TO REHAB: Arranging Home Equipment/Services Discharge Planning Family Intervention/Training Banker Mason/Case Management PATIENT REHAB POTENTIAL: Debra KHALIL is able and expected to receive 3 hours of individualized therapy daily on at least 5 of ever y 7 days Debra KHALIL's prognosis for significant practical improvement within a reasonable period of time appears Good Expected level of measurable improvement will be of a practical value to Debra KHALIL's functional capacit y or adaptations to impairments Has a viable Discharge Plan Medically appropriate; condition is sufficiently stable to participate in intensive rehab program DISCHARGE PLAN: - Estimated Length of Stay (days) 17. - Consensus on plan Discharge plan has been discussed with primary caregiver. Patient/Family is in agreement with the johana n. Primary caregiver is in agreement with the plan. - Patient/Family Goals Return home with assistance. - Planned Living Setting Upon Discharge Home, to live with Family/Relatives. Transitional Living. RECOMMENDED CARE LEVEL: IRF RECOMMENDATION DETAILS: Recommended Admission to Comprehensive Rehabilitation Program to Increase Functional [place] SCREENER'S COMPLETENESS CONFIRMATION: - Screening Confirmation The patient data collection on this preadmission screening form is finished PHYSICIANS REVIEW AND ADMISSION DETERMINATION Admit - Based on my review of the Pre-Admission Screening results, in my medical judgment and experie nce, I concur with the findings and recommend admission to [facility], as this patient requires an IRF level of care. SIGNATURE PANEL: Global Implementation Manager - [electronically] signed by Heidi Dixon on 08/11/2019 at 10:00 (CDT) Clinical Liaison - [electronically] signed by Sasha Rosado RN on 08/11/2019 at 10:10 (CDT) Physician Reviewer - [electronically] signed by Dr. Waqar Azul M.D. on 08/12/2019 at 12:34 (CDT )
--- NOTE | 2019-08-15 10:02 | R.PREADM ---
SCREENING DATE AND TIME 08/15/2019 08:28 (CDT) ANTICIPATED REHAB ADMISSION DATE 08/17/2019 REFERRING FACILITY [facility] REFERRAL DATE AND TIME 08/15/2019 08:32 (CDT) REFERRAL ROOM# 231 ACUTE ADMIT DATE 08/08/2019 Previous Rehabilitation(s): No. 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 Waqar Azul M.D. MR# [id number] NAME MAYTE KHALIL ADDRESS [address] [facility] PHONE [facility] [id number] DATE OF 1940 AGE 78 SSN# [id number] GENDER male MARITAL STATUS RACE ADMIT FROM 02 - [facility] PRE-HOSPITAL LIVING SETTING 01 - Home (private home/apt. board/care, assisted living, halfway, transitional living) HOME TYPE AND DETAILS Type of home: single family house # of levels in the residence: 2 # of steps within the residence: 17 # of steps to enter the residence: 4 PRE-HOSPITAL LIVING WITH Family/Relatives FAMILY SUPPORT Yes PRIMARY FAMILY CONTACT NAME AMALIA KHALIL PRIMARY FAMILY CONTACT PHONE [phone] PRIMARY FAMILY CONTACT RELATIONSHIP PHONE PRIMARY FAMILY CONTACT ON ADM.? no IS PRIMARY FAMILY CONTACT AUTH. REP.? no 1ST EMERGENCY CONTACT AMALIA KHALIL 1ST CONTACT PHONE [phone] 1ST CONTACT RELATIONSHIP PHONE 1ST CONTACT ON ADM. no IS 1ST CONTACT AUTH. REP.? no PHONE 2ND CONTACT ON ADM.? no PATIENT EMPLOYMENT STATUS Retired (for age) PATIENT EMPLOYER No Employer PAYOR INFORMATION: 1ST PAYOR NAME Maribel 1ST PAYOR PHONE 1ST PAYOR POLICY ID [id number] INJURY/ILLNESS DUE TO ACCIDENT? No ANOTHER REPUBLICAN RESPONSIBLE? No PRIMARY REHAB/ACUTE DIAGNOSIS: CVA REHAB IMPAIRMENT CATEGORY (JAVON): 01 Stroke (STR) MEETS 60% rule AFFECTED EXTREMITIES: LLE, and LUE PRIMARY DIAGNOSIS-RELATED SURGERIES: HYPERTENSION HYPERLIPIDEMIA SUMMARY OF ACUTE HOSPITALIZATION: Pt. is a 78 yo Right-handed male. On 08/08/2019 Pt. presented to [facility] with sudden onset of left-side weakness. On 08/11/2019 he was admitted to [facility] with diagnosis CVA. His impairment category is Stroke 01 - Left Body (Right Brain) (01.1). Pre-morbidly, Pt. was independent/mod-I in Safety Awareness, Social Cognition, Transfers Control, Sph incter Control, and Self-Care; and he had good Balance, Endurance, Communication, and Locomotion. Currently, he has deficits of Locomotion, Balance, Safety Awareness, Social Cognition, Sphincter Cont rol, Self-Care, and Endurance. Pt. is now referred to [facility] for acute in-patient rehabilitation in order to maximize patient's functional independence in activities of daily living, strength, ROM, and mobi lity. Patient has realistic goal of being discharged at assistance level 3-modA to reside at Home with Fam carmel/Relatives. Mr. Mayte Khalil is a 78 year old man that lives at home independently with his . They have a two- story home with the restroom being upstairs. He was very independent before his stroke. He has a history of hypertension, hyperlipidemia and presented to the emergency department with a complaint of sudden onset of left-sided numbness and subjective weakness in the left hand. His systolic blood pressure in the ED was elevated to 220. Patient took 2 baby aspirin before coming to the ED. EKG in the ED showed sinus rhythm. CT head showed no acute disease. Patient was given IV labetalol and IV hydralazine to bring down his blood pressure. Patient was admitted to [facility] not followed up for procedure at this time. [facility] Inpatient rehabilitation and is hemodynamically stable with relatively stable labs. He is now medically stable but in need of 24 hour nursing, doctor supervision and oversight while reasonably expected to participate in 3 hours of therapy a day/15 hours per week and receive care with intensive interdisciplinary approach. COVID-19 screening performed; spoke with patient via phone. Patient denies new onset of fever, cough, difficulty breathing, sore throat, body aches and non-allergy nasal congestion in the past 24 hours. Patient denies travel outside of [place] in the past 14 days. Patient denies any contact with someone who has a confirmed diagnosis of or is under investigation for COVID-19 in the past 14 days. PAST MEDICAL HISTORY HYPERTENSION HYPERLIPIDEMIA MEDICATION ALLERGIES: No Known Drug Allergies (NKDA) ENVIRONMENTAL ALLERGIES: - Substance Allergies None Known - Other Allergies None Known CODE STATUS: Full code WEIGHT/HEIGHT/BMI: WEIGHT 153 lbs HEIGHT 5' 5" BMI 25.5 DIET: - Diet Type Regular - Diet - Solid Texture Regular - Diet - Liquid Texture Regular - Tube Feed N/A REVIEW OF SYSTEMS: - Gen Alert and awake Lying in bed No apparent distress Oriented to: person, time, and place - Vital Signs Temperature: 97.7 F SBP/DBP: 140/78 Pulse: 85 Resp: 19 Vital signs stable, afebrile - CVS RRR VITAL SIGNS Temperature: 97.7 F SBP/DBP: 140/78 Pulse: 85 Resp: 19 Vital signs stable, afebrile MEDICATIONS/TREATMENT: Other- See attached MAR (Medication Administration Record). CURRENT SPHINCTER CONTROL: Pre-hospital bladder status: continent # of bladder accidents in the last 7 days prior to screenin Pre-hospital bowel status: continent # of bowel accidents in the last 7 days prior to screenin Last Bowel Movement Date: 08/11/2019 CURRENT LOCOMOTION STATUS: distance walked 170 feet with rolling walker DETAILED CURRENT FUNCTIONAL STATUS: - Bladder accident frequency: Ind - No accidents in the past 7 days - Bowel accident frequency: Ind - No accidents in the past 7 days - Walking score based on distance walked: 0(N/A) score based on distance walked: 3(>=150ft) - Wheelchair score based on distance traveled: 0(N/A) QI SCORES: - Self-Care A. Eating 03-Partial/moderate assistance B. Oral hygiene 03-Partial/moderate assistance C. Toileting hygiene 03-Partial/moderate assistance E. Shower/bathe self 03-Partial/moderate assistance F. Upper body dressing 04-Supervision or touching assistance G. Lower body dressing 03-Partial/moderate assistance H. Putting on/taking off footwear 03-Partial/moderate assistance - Mobility A. Roll left and right 04-Supervision or touching assistance B. Sit to lying 03-Partial/moderate assistance C. Lying to sitting on side of bed 03-Partial/moderate assistance D. Sit to stand 03-Partial/moderate assistance E. Chair/afb-go-hctrh transfer 03-Partial/moderate assistance F. Toilet transfer 03-Partial/moderate assistance G. Car transfer 88-Not attempted due to medical condition or safety concerns I. Walk 10 feet 03-Partial/moderate assistance J. Walk 50 feet with two turns 88-Not attempted due to medical condition or safety concerns K. Walk 150 feet 03-Partial/moderate assistance L. Walking 10 feet on uneven surfaces 88-Not attempted due to medical condition or safety concerns M. 1 step (curb) 88-Not attempted due to medical condition or safety concerns N. 4 steps 88-Not attempted due to medical condition or safety concerns O. 12 steps 88-Not attempted due to medical condition or safety concerns P. Picking up object 04-Supervision or touching assistance R. Wheel 50 feet with two turns 88-Not attempted due to medical condition or safety concerns S. Wheel 150 feet 03-Partial/moderate assistance - Bladder and Bowel Bladder continence Bowel continence - Endurance Good - Balance Good - Safety Awareness Good CURRENT FUNC. DEFICITS: Self-Care and Mobility CURRENT / PREVIOUS ASSISTIVE DEVICES: 3-in-1 Commode [facility] Hospital Bed Quad Cane Rolling Walker Tub Bench HISTORY OF FALLS. HAS THE PATIENT HAD TWO OR MORE FALLS IN THE PAST YEAR OR ANY FALL WITH INJURY IN T HE PAST YEAR?: No PRIOR SURGERY. DID THE PATIENT HAVE MAJOR SURGERY DURING THE 100 DAYS PRIOR TO ADMISSION?: No THERAPY NOTES FROM ACUTE CARE: Attached. SPECIAL NEEDS: - Safety Concerns Skin breakdown precautions needed due to skin breakdown risk PRECAUTIONS: - Weight Bearing Precaution WBAT left LE PATIENT NEEDS ACTIVE AND ONGOING THERAPEUTIC INTERVENTION OF MULTIPLE THERAPY DISCIPLINES, INCLUDING: - Occupational Therapy Cognitive Retraining. Visual Perceptual Training. - Dietary and Nutrition Adequate Nutrition. Nutritional Education. Nutritional Supplements. - Speech Therapy Cognitive Training. Expressive Language Skills. Memory Strategies. Receptive Language Skills. Speech Intelligibility Training. PATIENT NEEDS CLOSE MEDICAL SUPERVISION BY A REHABILITATION PHYSICIAN FOR: Coordination of Treatment Team PATIENT REQUIRES 24X7 REHAB NURSING FOR MEDICAL AND FUNCTIONAL MGT. OF THE FOLLOWING DEFICITS: Disease Management Medication Management Patient/Family Education Providing Safe Environment PATIENT REQUIRES INTENSIVE, COORDINATED INTERDISCIPLINARY APPROACH TO REHAB: Arranging Home Equipment/Services Discharge Planning Family Intervention/Training Lan Administrator/Case Management PATIENT REHAB POTENTIAL: Debra KHALIL is able and expected to receive 3 hours of individualized therapy daily on at least 5 of ever y 7 days Debra KHALIL's prognosis for significant practical improvement within a reasonable period of time appears Good Expected level of measurable improvement will be of a practical value to Debra KHALIL's functional capacit y or adaptations to impairments Has a viable Discharge Plan Medically appropriate; condition is sufficiently stable to participate in intensive rehab program DISCHARGE PLAN: - Estimated Length of Stay (days) 17. - Consensus on plan Discharge plan has been discussed with primary caregiver. Patient/Family is in agreement with the johana n. Primary caregiver is in agreement with the plan. - Patient/Family Goals Return home with assistance. - Planned Living Setting Upon Discharge Home, to live with Family/Relatives. Transitional Living. RECOMMENDED CARE LEVEL: IRF RECOMMENDATION DETAILS: Recommended Admission to Comprehensive Rehabilitation Program to Increase Functional [place] SCREENER'S COMPLETENESS CONFIRMATION: - Screening Confirmation The patient data collection on this preadmission screening form is finished PHYSICIANS REVIEW AND ADMISSION DETERMINATION Admit - Based on my review of the Pre-Admission Screening results, in my medical judgment and experie nce, I concur with the findings and recommend admission to [facility], as this patient requires an IRF level of care. SIGNATURE PANEL: Activities Volunteer - [electronically] signed by Heidi Dixon on 08/15/2019 at 08:33 (CDT) Clinical Liaison - [electronically] signed by Sasha Rosado RN on 08/15/2019 at 08:43 (CDT) Physician Reviewer - [electronically] signed by Dr. Waqar Azul M.D. on 08/15/2019 at 10:01 (CDT )
[2019-08-15] MEDS ORDERED: GLUCAGON 1 MG/VIAL IM PRN (15:08)
[2019-08-15] MEDS ORDERED: D50W 25 GM/50 ML SYRINGE/VIAL IV PRN (15:08)
[2019-08-15] MEDS: INSULIN -REGULAR HUMAN 50 UNIT/0.5 ML ML SQ SCH ×2 (16:30→21:00)
[2019-08-15 16:43] LABS: Urine Appearance CLEAR; Urine Bilirubin NEGATIVE (NEG); Urine Blood NEGATIVE (NEG); Urine Color YELLOW; Urine Glucose NEGATIVE (NEG); Urine Protein NEGATIVE (NEG); Urine Urobilinogen 0.2 mg/dL (0.2-1.0)
--- NOTE | 2019-08-15 17:16 | R.HP ---
FACILITY: [facility] ENCOUNTER DATE AND TIME: 08/15/2019 17:09 (CDT) MR#: [id number] NAME MAYTE KHALIL ADDRESS: [address] [place] [address] CITY: [place]IP [id number] PHONE: DATE OF : 1940 AGE: 78 SSN# [id number] GENDER: Male DEXTERITY Right-handed MARITAL STATUS RACE PRE-HOSPITAL LIVING SETTING 01 - Home (private home/apt. board/care, assisted living, [facility], transitional living) PRE-HOSPITAL LIVING WITH Family/Relatives ENCOUNTER PHYSICIAN: Dr. Waqar Azul M.D. REFERRING DOCTOR: DATE OF ADMISSION: 08/15/2019 11:28 (CDT) REFERRING FACILITY [facility] HOME TYPE AND DETAILS: Type of home: single family house # of levels in the residence: 2 # of steps within the residence: 17 # of steps to enter the residence: 4 PRIMARY DIAGNOSIS-RELATED SURGERIES: HYPERTENSION HYPERLIPIDEMIA HISTORY OF PRESENT ILLNESS (HPI): Pt. is a 78 yo Right-handed male. On 08/08/2019 Pt. presented to [facility] with sudden onset of left-side weakness. On 08/11/2019 he was admitted to [facility] with diagnosis CVA. His impairment category is Stroke 01 - Left Body (Right Brain) (01.1). Pre-morbidly, Pt. was independent/mod-I in Safety Awareness, Social Cognition, Transfers Control, Sph incter Control, and Self-Care; and he had good Balance, Endurance, Communication, and Locomotion. Currently, he has deficits of Locomotion, Balance, Safety Awareness, Social Cognition, Sphincter Cont rol, Self-Care, and Endurance. Pt. is now referred to [facility] for acute in-patient rehabilitation in order to maximize patient's functional independence in activities of daily living, strength, ROM, and mobi lity. Patient has realistic goal of being discharged at assistance level 3-modA to reside at Home with Fam carmel/Relatives. Mr. Mayte Khalil is a 78 year old man that lives at home independently with his . They have a two- story home with the restroom being upstairs. He was very independent before his stroke. He has a history of hypertension, hyperlipidemia and presented to the emergency department with a complaint of sudden onset of left-sided numbness and subjective weakness in the left hand. His systolic blood pressure in the ED was elevated to 220. Patient took 2 baby aspirin before coming to the ED. EKG in the ED showed sinus rhythm. CT head showed no acute disease. Patient was given IV labetalol and IV hydralazine to bring down his blood pressure. Patient was admitted to [facility] not followed up for procedure at this time. [facility] Inpatient rehabilitation and is hemodynamically stable with relatively stable labs. He is now medically stable but in need of 24 hour nursing, doctor supervision and oversight while reasonably expected to participate in 3 hours of therapy a day/15 hours per week and receive care with intensive interdisciplinary approach. COVID-19 screening performed; spoke with patient via phone. Patient denies new onset of fever, cough, difficulty breathing, sore throat, body aches and non-allergy nasal congestion in the past 24 hours. Patient denies travel outside of [place] in the past 14 days. Patient denies any contact with someone who has a confirmed diagnosis of or is under investigation for COVID-19 in the past 14 days. MEDICATION ALLERGIES: No Known Drug Allergies (NKDA) ENVIRONMENTAL ALLERGIES: - Substance Allergies None Known - Other Allergies None Known PAST MEDICAL HISTORY: HYPERTENSION HYPERLIPIDEMIA FAMILY HISTORY: Family history is not contributory. SOCIAL HISTORY: - Home Living Family/Relatives REVIEW OF SYSTEMS: - Gen No Chills No Fatigue No Fever - Eyes No Double Vision No itchiness - ENMT No Difficulty Swallowing - CVS No Chest Discomfort No Chest Pain No Fatigue No Weight Gain - Resp No Cough No Shortness of Breath - GI Continent No Abdominal Pain No Constipation No Diarrhea - Continent No Kidney Pain No Painful Urination No Urinary Urgency - MSK No Joint Pain No Muscle Cramps No Stiffness - Skin No Itching No Rash No Suspicious Lesions - Neuro Coordination Difficulty No Difficulty with Concentration No Memory Loss No Seizures Weakness - Psych No Anxiety No Depression No HIV Exposure No Persistent Infections No Seasonal Allergies - Endo No Cold/Heat Intolerance No Excessive Hunger No Excessive Thirst No Excessive Urination PHYSICAL EXAM - Gen Alert and awake Lying in bed No apparent distress Oriented to: person, time, and place - Skin No skin breakdown. Normacephalic - Eyes Mild left visual visual field deficit - ENMT No abnormalities - Neck No abnormalities No cervical adenopathy - CVS RRR - Chest No abnormalities - Abd + bowel sounds - GI nondistended Deferred - No abnormalities - Ext No significant edema - MSK No Muscle Weakness - Neuro Left face, arm and leg numbness with incoordination and gait ataxia. - Psych No abnormalities VITAL SIGNS Temperature: 97.8 F SBP/DBP: 132/66 Pulse: 66 Resp: 16 NURSING: - Shower allowing shower - Bladder care per protocol - Skin care per protocol PRECAUTIONS: - Weight Bearing Precaution WBAT left LE ACTIVITIES OOB only with supervision QI SCORES: - Self-Care A. Eating 03-Partial/moderate assistance B. Oral hygiene 03-Partial/moderate assistance C. Toileting hygiene 03-Partial/moderate assistance E. Shower/bathe self 03-Partial/moderate assistance F. Upper body dressing 04-Supervision or touching assistance G. Lower body dressing 03-Partial/moderate assistance H. Putting on/taking off footwear 03-Partial/moderate assistance - Mobility A. Roll left and right 04-Supervision or touching assistance B. Sit to lying 03-Partial/moderate assistance C. Lying to sitting on side of bed 03-Partial/moderate assistance D. Sit to stand 03-Partial/moderate assistance E. Chair/skj-sw-xkbbu transfer 03-Partial/moderate assistance F. Toilet transfer 03-Partial/moderate assistance G. Car transfer 88-Not attempted due to medical condition or safety concerns I. Walk 10 feet 03-Partial/moderate assistance J. Walk 50 feet with two turns 88-Not attempted due to medical condition or safety concerns K. Walk 150 feet 03-Partial/moderate assistance L. Walking 10 feet on uneven surfaces 88-Not attempted due to medical condition or safety concerns M. 1 step (curb) 88-Not attempted due to medical condition or safety concerns N. 4 steps 88-Not attempted due to medical condition or safety concerns O. 12 steps 88-Not attempted due to medical condition or safety concerns P. Picking up object 04-Supervision or touching assistance R. Wheel 50 feet with two turns 88-Not attempted due to medical condition or safety concerns S. Wheel 150 feet 03-Partial/moderate assistance - Bladder and Bowel Bladder continence Bowel continence - Endurance Good - Balance Good - Safety Awareness Good CURRENT FUNC. DEFICITS: Self-Care and Mobility MEDICATIONS: - Other See attached MAR (Medication Administration Record) ASSESSMENT: Pt. is a 78 yo Right-handed male.On 08/08/2019 Pt. presented to [facility] with castañeda dden onset of left-side weakness.On 08/11/2019 he was admitted to [facility] with diagno sis CVA.His impairment category is Stroke 01 - Left Body (Right Brain) (01.1).Pre-morbidly, Pt. was independent/mod-I in Safety Awareness, Social Cognition, Transfers Control, Sphincter Control, and Se lf-Care; and he had good Balance, Endurance, Communication, and Locomotion.Currently, he has deficits of Locomotion, Balance, Safety Awareness, Social Cognition, Sphincter Control, Self-Care, and Endura nce.Pt. is now referred to [facility] for acute [facility]-patient rehabilitation in [facility] to maximize patient's functional independence in activities of daily living, strength, ROM, and mobility.- Rehab Goal Patient has realistic goal of being discharged at assistance level 3-modA to reside at Home with Fam carmel/Relatives. Mr. Mayte Khalil is a 78 year old man that lives at home independently with his . They have a two- story home with the restroom being upstairs. He was very independent before his stroke. He has a history of hypertension, hyperlipidemia and presented to the emergency department with a complaint of sudden onset of left-sided numbness and subjective weakness in the left hand. His systolic blood pressure in the ED was elevated to 220. Patient took 2 baby aspirin before coming to the ED. EKG in the ED showed sinus rhythm. CT head showed no acute disease. Patient was given IV labetalol and IV hydralazine to bring down his blood pressure. Patient was admitted to [facility] not followed up for procedure at this time. [facility] Inpatient rehabilitation and is hemodynamically stable with relatively stable labs. He is now medically stable but in need of 24 hour nursing, doctor supervision and oversight while reasonably expected to participate in 3 hours of therapy a day/15 hours per week and receive care with intensive interdisciplinary approach. COVID-19 screening performed; spoke with patient via phone. Patient denies new onset of fever, cough, difficulty breathing, sore throat, body aches and non-allergy nasal congestion in the past 24 hours. Patient denies travel outside of [place] in the past 14 days. Patient denies any contact with someone who has a confirmed diagnosis of or is under investigation for COVID-19 in the past 14 days.REHAB PLAN: for Dementia, TBI, Stroke, or others - Physical Therapy Need for home safety evaluation - to improve, our physical therapists will perform initial evaluation of pt's status upon admission and devise an individualized program for Home Evaluation Need in caregiver upon discharge - to improve, our physical therapists will perform initial evaluatio n of pt's status upon admission and devise an individualized program for Caregiver Training New precaution - to improve, our physical therapists will perform initial evaluation of pt's status u mari admission and devise an individualized program for Patient precaution education Edema - to improve, our physical therapists will perform initial evaluation of pt's status upon admi ssion and devise an individualized program for Elevation Training, and Lymphedema Therapy Poor balance - to improve, our physical therapists will perform initial evaluation of pt's status upo n admission and devise an individualized program for Balance Training Poor endurance - to improve, our physical therapists will perform initial evaluation of pt's status u mari admission and devise an individualized program for Endurance Training Achieving independence - to improve, our physical therapists will perform initial evaluation of pt's status upon admission and devise an individualized program for Community Reintegration Activities - Occupational Therapy ADL deficits - to improve, our occupation therapists will perform initial evaluation of pt's status u mari admission and devise an individualized program for Bathing, Bed mobility, Community Reintegration , Cooking, Dressing, Eating, Fine Motor Skills, Grooming, Homemaking, Kitchen Mobility, Laundry, Pinky ent Education, Safety Awareness, Splinting - Positioning, Transfers(Toilet, Tub, Shower), and Wheel C hair Management Cognitive deficits - to improve, our occupation therapists will perform initial evaluation of pt's st atus upon admission and devise an individualized program for Cognition - orientation Need for home care nurse - to improve, our occupation therapists will perform initial evaluation of pt's s tatus upon admission and devise an individualized program for Caregiver Training MEDICAL PLAN: - Diet Type Start Regular - Diet - Liquid Texture Start Regular - Tube Feed Start N/A - Bladder care per protocol - Weight Bearing Precaution WBAT left LE - Skin care per protocol - Other See attached MAR (Medication Administration Record) - Diet - Solid Texture Regular - Shower shower DISCHARGE PLAN: - Estimated Length of Stay (days) 17. - Consensus on plan Discharge plan has been discussed with primary caregiver. Patient/Family is in agreement with the johana n. Primary caregiver is in agreement with the plan. - Patient/Family Goals Return home with assistance. - Planned Living Setting Upon Discharge Home, to live with Family/Relatives. Transitional Living. SIGNATURE PANEL: (CDT)
--- NOTE | 2019-08-15 17:18 | PAPE ---
PATIENT: [facility] MR# [id number] REFERRING DOCTOR EVALUATION DATE AND TIME 08/15/2019 17:16 (CDT) NAME JOSUE KHALIL DATE OF 1940 AGE 78 PHONE SSN# [id number] GENDER male EVALUATING PHYSICIAN Dr. Waqar Azul M.D. ADMISSION DIAGNOSIS: CVA POST-ADMISSION FUNCTIONAL/MEDICAL STATUS: - Bladder Same accident frequency: Ind - No accidents in the past 7 days - Bowel Same accident frequency: Ind - No accidents in the past 7 days - Walking Same score based on distance walked: 0(N/A) Same score based on distance walked: 3(>=150ft) - Wheelchair Same score based on distance traveled: 0(N/A) STATUS CHANGE EVALUATION: No change in Functional or Medical Status is identified compared with Pre-Admission screening. PATIENT NEEDS CLOSE MEDICAL SUPERVISION BY A REHABILITATION PHYSICIAN FOR: Coordination of Treatment Team PATIENT REQUIRES 24X7 REHAB NURSING FOR MEDICAL AND FUNCTIONAL MGT. OF THE FOLLOWING DEFICITS: Disease Management Medication Management Patient/Family Education Providing Safe Environment PATIENT REQUIRES INTENSIVE, COORDINATED INTERDISCIPLINARY APPROACH TO REHAB: Arranging Home Equipment/Services Discharge Planning Family Intervention/Training Single Stroke Preformer/Case Management LIST OF IDENTIFIED AND POTENTIAL PROBLEMS: Alteration in leisure activities Bladder, Incontinence Bowel, Incontinence Infection, Actual or Potential Mobility Impaired Pain, Alteration in Comfort Self Care Deficit Skin Integrity, Actual or Potential Urinary Tract Infection (UTI), Actual or Potential PATIENT COULD BE AT RISK FOR COMPLICATIONS FROM ADVERSE MEDICAL CONDITIONS DUE TO HIS/HER COMORBIDITI ES AND THE RIGORS OF THE INTENSIVE REHABILLITATION PROGRAM. METHODS OR INTERVENTIONS TO AVOID COMPLIC ATIONS INCLUDE: - Bleeding Stroke patients assessed for lethargy or change in status. - Infection Clinical staff to assess and manage the signs and symptoms of infection including fever, redness, war mth, etc. - Urinary Tract Infection - Aspiration Clinical staff will assess and manage coughing, drooling, congestion. - Falls Patient will be evaluated for Fall Precautions and will be placed on Fall Precautions as indicated pe r protocol. - Skin Breakdown Nursing will assess skin daily using assessment tool and will place on Skin Breakdown Precautions as indicated per protocol. - Pain Clinical staff may employ non-medication methods such as massage, distraction, decrease stimulus, etc . as needed. Clinical staff will assess patient's pain level every shift per protocol to assess and e nsure pain management effectiveness. Medications will be given and the pain level re-assessed. PRELIMINARY PLAN OF CARE: - Physical Therapy Patient needs Physical Therapy for a daily minimum of 1.5 hours at least 5 out of 7 days, to improve: Mobility, Strengthening, Transfers, Stretching, ROM, Endurance, Ability to manage stairs, Gait, and Balance. - Speech Therapy Patient needs Speech Therapy for a daily minimum of 0.5 hours at least 5 out of 7 days, to improve: S wallowing, Cognition, Language Skills, and Compensatory Strategies. - Rehabilitation Nursing Patient requires 24x7 Rehabilitation Nursing for: Pain Issues, Identifying and preventing risk factor s, Monitoring and reporting current medical conditions, Assisting with ambulation and transfer, Alek ting with all ADL-s, Teaching patients about disease process and medications, Family teaching, Provid ing safe environment, Bowel and Bladder Issues, Skin Integrity, and Medication Management. Patient needs Single Stroke Preformer and/or Case Management for: Discharge Planning, Arranging Home Equipmen t or Services, and Family Interventions. - Dietary and Nutrition Services Patient needs Dietary and Nutrition Services for: Adequate Nutrition, Nutritional Supplements, and Nu tritional Education. - Occupational Therapy Patient needs Occupational Therapy for a daily minimum of 1.5 hours at least 5 out of 7 days, to impr ove Activities of Daily Living, including: Eating, Grooming, Bathing, Dressing, Toileting, Toilet Tra nsfers, Community Reintegration, Higher functional activities, Adaptive Equipment, Splinting, Househo ld Tasks, and Other activities as determined. QI SCORES: - Self-Care A. Eating 03-Partial/moderate assistance B. Oral hygiene 03-Partial/moderate assistance C. Toileting hygiene 03-Partial/moderate assistance E. Shower/bathe self 03-Partial/moderate assistance F. Upper body dressing 04-Supervision or touching assistance G. Lower body dressing 03-Partial/moderate assistance H. Putting on/taking off footwear 03-Partial/moderate assistance - Mobility A. Roll left and right 04-Supervision or touching assistance B. Sit to lying 03-Partial/moderate assistance C. Lying to sitting on side of bed 03-Partial/moderate assistance D. Sit to stand 03-Partial/moderate assistance E. Chair/elf-qo-[id number] transfer 03-Partial/moderate assistance F. Toilet transfer 03-Partial/moderate assistance G. Car transfer 88-Not attempted due to medical condition or safety concerns I. Walk 10 feet 03-Partial/moderate assistance J. Walk 50 feet with two turns 88-Not attempted due to medical condition or safety concerns K. Walk 150 feet 03-Partial/moderate assistance L. Walking 10 feet on uneven surfaces 88-Not attempted due to medical condition or safety concerns M. 1 step (curb) 88-Not attempted due to medical condition or safety concerns N. 4 steps 88-Not attempted due to medical condition or safety concerns O. 12 steps 88-Not attempted due to medical condition or safety concerns P. Picking up object 04-Supervision or touching assistance R. Wheel 50 feet with two turns 88-Not attempted due to medical condition or safety concerns S. Wheel 150 feet 03-Partial/moderate assistance - Bladder and Bowel Bladder continence Bowel continence - Endurance Good - Balance Good - Safety Awareness Good POTENTIAL FUNCTIONAL GOALS FOR PATIENT TO ACHIEVE BY DISCHARGE: - Safety Precaution Patient will remain free from falls or injury at time of discharge. - Bed Mobility Patient will perform bed mobility at 4-Marlon level of assistance. - Transfers Patient will complete transfers from bed to chair at 4-Marlon level of assistance. - Mobility Patient will ambulate 150 ft with 4-Marlon level of assistance with RW. PATIENT REHAB POTENTIAL Derba KHALIL is able and expected to receive 3 hours of individualized therapy daily on at least 5 of ever y 7 days Debra KHALIL's prognosis for significant practical improvement within a reasonable period of time appears Good Expected level of measurable improvement will be of a practical value to Debra KHALIL's functional capacit y or adaptations to impairments Has a viable Discharge Plan Medically appropriate; condition is sufficiently stable to participate in intensive rehab program DISCHARGE PLAN: - Estimated Length of Stay (days) 17. - Consensus on plan Discharge plan has been discussed with primary caregiver. Patient/Family is in agreement with the johana n. Primary caregiver is in agreement with the plan. - Patient/Family Goals Return home with assistance. - Planned Living Setting Upon Discharge Home, to live with Family/Relatives. Transitional Living. CONCLUSION ON REHABILITATION NECESSITY: I have evaluated patient's pre-admission functional status and, comparing it to the patient's post-ad mission functional status now, I conclude that the pre-admission assessment was accurate. Patient's c ondition on admission supports the medical necessity of admission to IRF. It is safe to proceed with patient's therapy program. SIGNATURE PANEL: (CDT)
[2019-08-15] MEDS: carvediloL 3.125 MG TAB PO SCH (17:20)
[2019-08-15 17:51] LABS: Urine Bacteria NONE SEEN /HPF (NONE SEEN); Urine Culture Reflex Order NOT NEEDED; Urine RBC <5 /HPF (NONE SEEN)
[2019-08-15] MEDS: DORZOLAMIDE OPTH SCH (18:00)
[2019-08-15] MEDS: TIMOLOL OPTH SCH (18:00)
[2019-08-15] MEDS ORDERED: DORZOLAMIDE OPTH SCH (21:00)
[2019-08-15] MEDS: [UNRECOGNIZED DRUG - OTHER] OPTH SCH (21:00)
[2019-08-15] MEDS ORDERED: TIMOLOL OPTH SCH (21:00)
[2019-08-15] MEDS: ATORVASTATIN 40 MG TAB PO SCH (21:13)
[2019-08-15] MEDS: MAGNESIUM OXIDE 400 MG TAB PO SCH (21:13)
[2019-08-15] MEDS: ramipriL 5 MG CAP PO SCH (21:13)
[2019-08-15] MEDS: DOCUSATE NA 100 MG CAP PO SCH (21:13)
[2019-08-15] MEDS: LORAZEPAM 0.5 MG TABLET PO PRN (22:53)
[2019-08-16] MEDS: carvediloL 3.125 MG TAB PO SCH ×2 (05:03→17:11)
[2019-08-16 05:56] LABS: Basophils % 0.5 % (0-1.3); Lymphocytes % 19.1 % (15.3-44.8); MPV 7.5 fL (7.6-11.3); RBC Red Blood Cell Count 4.59 M/uL (4.33-5.43)
[2019-08-16 06:18] LABS: Albumin 3.5 g/dL (3.4-5.0); Magnesium 2.2 mg/dL (1.8-2.4); Potassium 4.1 mmol/L (3.5-5.1); Prealbumin 26.9 mg/dL (20-40)
[2019-08-16] MEDS: PANTOPRAZOLE 40MG TABLET PO SCH (06:33)
[2019-08-16 06:34] LABS: Blood Morphology Comment NOT SEEN (NOT SEEN); Platelet Estimate ADEQ; Urine White Blood Cell Casts OK
[2019-08-16] MEDS: INSULIN -REGULAR HUMAN 50 UNIT/0.5 ML ML SQ SCH ×5 (07:30→20:33)
[2019-08-16] MEDS ORDERED: CYANOCOBALAMIN 1,000 MCG TAB PO SCH (08:00)
[2019-08-16] MEDS ORDERED: ENOXAPARIN 40 MG/0.4 ML SQ SCH (08:00)
[2019-08-16] MEDS: FENOFIBRATE 160 MG TAB PO SCH (08:51)
[2019-08-16] MEDS: ASPIRIN EC 81 MG TAB PO SCH (08:51)
[2019-08-16] MEDS: AMLODIPINE 2.5 MG TAB PO SCH (08:52)
[2019-08-16] MEDS: DOCUSATE NA 100 MG CAP PO SCH ×2 (08:52→19:55)
[2019-08-16] MEDS: CLOPIDOGREL 75 MG TABLET PO SCH (08:52)
[2019-08-16] MEDS: VITAMIN D 5,000 UNIT CAP PO SCH (08:52)
[2019-08-16] MEDS: DORZOLAMIDE OPTH SCH ×2 (08:53→15:04)
[2019-08-16] MEDS: CYANOCOBALAMIN 1,000 MCG TAB PO SCH (08:53)
[2019-08-16] MEDS: FOLIC ACID 1 MG TABLET PO SCH (08:53)
[2019-08-16] MEDS: BISOPROLOL/HCTZ 2.5/6.25MG TAB PO SCH (08:53)
[2019-08-16] MEDS: TIMOLOL OPTH SCH ×2 (08:53→15:04)
--- NOTE | 2019-08-16 17:51 | R.PN ---
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 SUBJECTIVE: Pt denied any depression. Pt denied any Shortness of Breath. CBC with differential is essentially normal. 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 Will increase water int miguel to 6-8 glasses daily. Ambulated 250' with standby assistance using a rolling walker. Up and down 5 steps with contact guard assistance. VITAL SIGNS Temperature: 97.8 F SBP/DBP: 132/66 Pulse: 66 Resp: 16 MEDICATION ALLERGIES: No Known Drug Allergies (NKDA) ENVIRONMENTAL ALLERGIES: - Substance Allergies None Known - Other Allergies None Known NURSING: - Shower allowing shower - Bladder care per protocol - Skin care per protocol PRECAUTIONS: - Weight Bearing Precaution WBAT left LE ACTIVITIES OOB only with supervision THERAPIES: - Occupational Therapy Cognitive Retraining. Visual Perceptual Training. - Dietary and Nutrition Adequate Nutrition. Nutritional Education. Nutritional Supplements. - Speech Therapy Cognitive Training. Expressive Language Skills. Memory Strategies. Receptive Language Skills. Speech Intelligibility Training. PHYSICAL EXAM - Gen Alert and awake Lying in bed No apparent distress Oriented to: person, time, and place - Skin No skin breakdown. Normacephalic - Eyes Mild left visual visual field deficit - ENMT No abnormalities - Neck No abnormalities No cervical adenopathy - CVS RRR - Chest No abnormalities - Abd + bowel sounds - GI nondistended Deferred - No abnormalities - Ext No significant edema - MSK No Muscle Weakness - Neuro Left face, arm and leg numbness with incoordination and gait ataxia. - Psych No abnormalities ASSESSMENT: Pt. is a 78 yo Right-handed male.On 08/08/2019 Pt. presented to [facility]] with castañeda dden onset of left-side weakness.On 08/11/2019 he was admitted to [facility]] with diagno sis CVA.His impairment category is Stroke 01 - Left Body (Right Brain) (01.1).Pre-morbidly, Pt. was independent/mod-I in Safety Awareness, Social Cognition, Transfers Control, Sphincter Control, and Se lf-Care; and he had good Balance, Endurance, Communication, and Locomotion.Currently, he has deficits of Locomotion, Balance, Safety Awareness, Social Cognition, Sphincter Control, Self-Care, and Endura nce.Pt. is now referred to [facility] for acute in-patient rehabilitation in [facility] to maximize patient's functional independence in activities of daily living, strength, ROM, and mobility.- Rehab Goal Patient has realistic goal of being discharged at assistance level 3-modA to reside at Home with Fam carmel/Relatives. MDM/PLAN: - Physical Therapy Need for home safety evaluation - to improve, our physical therapists will perform initial evaluatio n of pt's status upon admission and devise an individualized program for Home Evaluation Need in caregiver upon discharge - to improve, our physical therapists will perform initial evaluati on of pt's status upon admission and devise an individualized program for Caregiver Training New precaution - to improve, our physical therapists will perform initial evaluation of pt's status upon admission and devise an individualized program for Patient precaution education Edema - to improve, our physical therapists will perform initial evaluation of pt's status upon admis alejandro and devise an individualized program for Elevation Training, and Lymphedema Therapy Poor balance - to improve, our physical therapists will perform initial evaluation of pt's status up on admission and devise an individualized program for Balance Training Poor endurance - to improve, our physical therapists will perform initial evaluation of pt's status upon admission and devise an individualized program for Endurance Training Achieving independence - to improve, our physical therapists will perform initial evaluation of pt's status upon admission and devise an individualized program for Community Reintegration Activities - Occupational Therapy ADL deficits - to improve, our occupation therapists will perform initial evaluation of pt's status upon admission and devise an individualized program for Bathing, Bed mobility, Community Reintegratio n, Cooking, Dressing, Eating, Fine Motor Skills, Grooming, Homemaking, Kitchen Mobility, Laundry, Pat ient Education, Safety Awareness, Splinting - Positioning, Transfers(Toilet, Tub, Shower), and Wheel Chair Management Cognitive deficits - to improve, our occupation therapists will perform initial evaluation of pt's s tatus upon admission and devise an individualized program for Cognition - orientation Need for nanny caregiver - to improve, our occupation therapists will perform initial evaluation of pt's status upon admission and devise an individualized program for Caregiver Training - Other See attached MAR (Medication Administration Record) - Diet Type Continue Regular - Diet - Liquid Texture Continue Regular - Tube Feed Continue N/A - Bladder care per protocol - Weight Bearing Precaution WBAT left LE - Skin care per protocol - Diet - Solid Texture Continue Regular - Shower allowing shower for Dementia, TBI, Stroke, or others FUNCTIONAL STATUS: UPDATED AT WEEKLY TEAM CONFERENCE - Bladder Same accident frequency: 7-Ind - No accidents in the past 7 days - Bowel Same accident frequency: 7-Ind - No accidents in the past 7 days - Walking Same score based on distance walked: 0(N/A) Same score based on distance walked: 3(>=150ft) - Wheelchair Same score based on distance traveled: 0(N/A) FUNCTIONAL STATUS: - Self-Care A. Eating Ind B. Grooming sup C. Bathing modA D. Dressing - Upper Marlon E. Dressing - Lower modA F. Toileting Marlon - Sphincter Control G. Bladder control sup H. Bowel control sup - Transfers Control I. Bed/Chair/Wheelchair Marlon J. Toilet Marlon K. Tub/Shower modA - Locomotion L. Walk/Wheelchair (B) Marlon M. Stairs modA - Communication N. Comprehension (B) Marlon O. Expression (B) sup - Social Cognition P. Social Interaction Abimael Q. Problem Solving Abimael R. Memory Abimael - Endurance Good - Balance Fair - Safety Awareness Fair QI SCORES: - Self-Care A. Eating 03-Partial/moderate assistance B. Oral hygiene 03-Partial/moderate assistance C. Toileting hygiene 03-Partial/moderate assistance E. Shower/bathe self 03-Partial/moderate assistance F. Upper body dressing 04-Supervision or touching assistance G. Lower body dressing 03-Partial/moderate assistance H. Putting on/taking off footwear 03-Partial/moderate assistance - Mobility A. Roll left and right 04-Supervision or touching assistance B. Sit to lying 03-Partial/moderate assistance C. Lying to sitting on side of bed 03-Partial/moderate assistance D. Sit to stand 03-Partial/moderate assistance E. Chair/pbt-fv-mwqpv transfer 03-Partial/moderate assistance F. Toilet transfer 03-Partial/moderate assistance G. Car transfer 88-Not attempted due to medical condition or safety concerns I. Walk 10 feet 03-Partial/moderate assistance J. Walk 50 feet with two turns 88-Not attempted due to medical condition or safety concerns K. Walk 150 feet 03-Partial/moderate assistance L. Walking 10 feet on uneven surfaces 88-Not attempted due to medical condition or safety concerns M. 1 step (curb) 88-Not attempted due to medical condition or safety concerns N. 4 steps 88-Not attempted due to medical condition or safety concerns O. 12 steps 88-Not attempted due to medical condition or safety concerns P. Picking up object 04-Supervision or touching assistance R. Wheel 50 feet with two turns 88-Not attempted due to medical condition or safety concerns S. Wheel 150 feet 03-Partial/moderate assistance - Bladder and Bowel Bladder continence Bowel continence - Endurance Good - Balance Good - Safety Awareness Good CURRENT FUNC. DEFICITS: Self-Care and Mobility SIGNATURE PANEL: (CDT)
[2019-08-16] MEDS: MAGNESIUM OXIDE 400 MG TAB PO SCH (19:54)
[2019-08-16] MEDS: ramipriL 5 MG CAP PO SCH (19:54)
[2019-08-16] MEDS: APIXABAN 2.5 MG TABLET PO SCH (19:55)
[2019-08-16] MEDS: ATORVASTATIN 40 MG TAB PO SCH (19:55)
[2019-08-16] MEDS: [UNRECOGNIZED DRUG - OTHER] OPTH SCH (19:56)
[2019-08-16] MEDS: LORAZEPAM 0.5 MG TABLET PO PRN (22:45)
[2019-08-17] MEDS: carvediloL 3.125 MG TAB PO SCH ×2 (05:40→17:06)
[2019-08-17] MEDS: PANTOPRAZOLE 40MG TABLET PO SCH (06:42)
[2019-08-17] MEDS: INSULIN -REGULAR HUMAN 50 UNIT/0.5 ML ML SQ SCH ×4 (06:58→20:32)
[2019-08-17] MEDS: AMLODIPINE 2.5 MG TAB PO SCH (07:37)
[2019-08-17] MEDS: FENOFIBRATE 160 MG TAB PO SCH (07:38)
[2019-08-17] MEDS: DOCUSATE NA 100 MG CAP PO SCH ×2 (07:38→20:31)
[2019-08-17] MEDS: VITAMIN D 5,000 UNIT CAP PO SCH (07:38)
[2019-08-17] MEDS: APIXABAN 2.5 MG TABLET PO SCH ×2 (07:38→20:31)
[2019-08-17] MEDS: FOLIC ACID 1 MG TABLET PO SCH (07:38)
[2019-08-17] MEDS: ASPIRIN EC 81 MG TAB PO SCH (07:38)
[2019-08-17] MEDS: CLOPIDOGREL 75 MG TABLET PO SCH (07:38)
[2019-08-17] MEDS: BISOPROLOL/HCTZ 2.5/6.25MG TAB PO SCH (07:39)
[2019-08-17] MEDS: DORZOLAMIDE OPTH SCH ×2 (07:56→17:06)
[2019-08-17] MEDS: TIMOLOL OPTH SCH ×2 (07:56→17:06)
--- NOTE | 2019-08-17 17:56 | R.PN ---
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 SUBJECTIVE: Pt denied any depression. Pt denied any Shortness of Breath. CBC with differential is essentially normal. 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 Increase water intake t o 6-8 glasses daily. Ambulated 250' with standby assistance using a rolling walker. Up and down 5 steps with contact guard assistance. VITAL SIGNS Temperature: 97.6 F SBP/DBP: 128/75 Pulse: 70 Resp: 16 MEDICATION ALLERGIES: No Known Drug Allergies (NKDA) ENVIRONMENTAL ALLERGIES: - Substance Allergies None Known - Other Allergies None Known NURSING: - Shower allowing shower - Bladder care per protocol - Skin care per protocol PRECAUTIONS: - Weight Bearing Precaution WBAT left LE ACTIVITIES OOB only with supervision THERAPIES: - Occupational Therapy Cognitive Retraining. Visual Perceptual Training. - Dietary and Nutrition Adequate Nutrition. Nutritional Education. Nutritional Supplements. - Speech Therapy Cognitive Training. Expressive Language Skills. Memory Strategies. Receptive Language Skills. Speech Intelligibility Training. PHYSICAL EXAM - Gen Alert and awake Lying in bed No apparent distress Oriented to: person, time, and place - Skin No skin breakdown. Normacephalic - Eyes Mild left visual visual field deficit - ENMT No abnormalities - Neck No abnormalities No cervical adenopathy - CVS RRR - Chest No abnormalities - Abd + bowel sounds - GI nondistended Deferred - No abnormalities - Ext No significant edema - MSK No Muscle Weakness - Neuro Left face, arm and leg numbness with incoordination and gait ataxia. - Psych No abnormalities ASSESSMENT: Pt. is a 78 yo Right-handed male.On 08/08/[address] [facility] with castañeda dden onset of left-side weakness.On 08/11/2019 he was admitted to [facility] with diagno sis CVA.His impairment category is Stroke 01 - Left Body (Right Brain) (01.1).Pre-morbidly, Pt. was independent/mod-I in Safety Awareness, Social Cognition, Transfers Control, Sphincter Control, and Se lf-Care; and he had good Balance, Endurance, Communication, and Locomotion.Currently, he has deficits of Locomotion, Balance, Safety Awareness, Social Cognition, Sphincter Control, Self-Care, and Endura nce.Pt. is now referred to [facility] for acute in-patient rehabilitation in [facility] to maximize patient's functional independence in activities of daily living, strength, ROM, and mobility.- Rehab Goal Patient has realistic goal of being discharged at assistance level 3-modA to reside at Home with Fam carmel/Relatives. MDM/PLAN: - Physical Therapy Need for home safety evaluation - to improve, our physical therapists will perform initial evaluatio n of pt's status upon admission and devise an individualized program for Home Evaluation Need in caregiver upon discharge - to improve, our physical therapists will perform initial evaluati on of pt's status upon admission and devise an individualized program for Caregiver Training New precaution - to improve, our physical therapists will perform initial evaluation of pt's status upon admission and devise an individualized program for Patient precaution education Edema - to improve, our physical therapists will perform initial evaluation of pt's status upon admi ssion and devise an individualized program for Elevation Training, and Lymphedema Therapy Poor balance - to improve, our physical therapists will perform initial evaluation of pt's status up on admission and devise an individualized program for Balance Training Poor endurance - to improve, our physical therapists will perform initial evaluation of pt's status upon admission and devise an individualized program for Endurance Training Achieving independence - to improve, our physical therapists will perform initial evaluation of pt's status upon admission and devise an individualized program for Community Reintegration Activities - Occupational Therapy ADL deficits - to improve, our occupation therapists will perform initial evaluation of pt's status upon admission and devise an individualized program for Bathing, Bed mobility, Community Reintegratio n, Cooking, Dressing, Eating, Fine Motor Skills, Grooming, Homemaking, Kitchen Mobility, Laundry, Pat ient Education, Safety Awareness, Splinting - Positioning, Transfers(Toilet, Tub, Shower), and Wheel Chair Management Cognitive deficits - to improve, our occupation therapists will perform initial evaluation of pt's s tatus upon admission and devise an individualized program for Cognition - orientation Need for memory care program director - to improve, our occupation therapists will perform initial evaluation of pt's status upon admission and devise an individualized program for Caregiver Training - Other See attached MAR (Medication Administration Record) - Diet Type Continue Regular - Diet - Liquid Texture Continue Regular - Tube Feed Continue N/A - Bladder care per protocol - Weight Bearing Precaution WBAT left LE - Skin care per protocol - Diet - Solid Texture Continue Regular - Shower allowing shower for Dementia, TBI, Stroke, or others FUNCTIONAL STATUS: UPDATED AT WEEKLY TEAM CONFERENCE - Bladder Same accident frequency: 7-Ind - No accidents in the past 7 days - Bowel Same accident frequency: 7-Ind - No accidents in the past 7 days - Walking Same score based on distance walked: 0(N/A) Same score based on distance walked: 3(>=150ft) - Wheelchair Same score based on distance traveled: 0(N/A) FUNCTIONAL STATUS: - Self-Care A. Eating Ind B. Grooming sup C. Bathing modA D. Dressing - Upper Marlon E. Dressing - Lower modA F. Toileting Marlon - Sphincter Control G. Bladder control sup H. Bowel control sup - Transfers Control I. Bed/Chair/Wheelchair Marlon J. Toilet Marlon K. Tub/Shower modA - Locomotion L. Walk/Wheelchair (B) Marlon M. Stairs modA - Communication N. Comprehension (B) Marlon O. Expression (B) sup - Social Cognition P. Social Interaction Abimael Q. Problem Solving Abimael R. Memory Abimael - Endurance Good - Balance Fair - Safety Awareness Fair QI SCORES: - Self-Care A. Eating 03-Partial/moderate assistance B. Oral hygiene 03-Partial/moderate assistance C. Toileting hygiene 03-Partial/moderate assistance E. Shower/bathe self 03-Partial/moderate assistance F. Upper body dressing 04-Supervision or touching assistance G. Lower body dressing 03-Partial/moderate assistance H. Putting on/taking off footwear 03-Partial/moderate assistance - Mobility A. Roll left and right 04-Supervision or touching assistance B. Sit to lying 03-Partial/moderate assistance C. Lying to sitting on side of bed 03-Partial/moderate assistance D. Sit to stand 03-Partial/moderate assistance E. Chair/qmz-hz-yghaa transfer 03-Partial/moderate assistance F. Toilet transfer 03-Partial/moderate assistance G. Car transfer 88-Not attempted due to medical condition or safety concerns I. Walk 10 feet 03-Partial/moderate assistance J. Walk 50 feet with two turns 88-Not attempted due to medical condition or safety concerns K. Walk 150 feet 03-Partial/moderate assistance L. Walking 10 feet on uneven surfaces 88-Not attempted due to medical condition or safety concerns M. 1 step (curb) 88-Not attempted due to medical condition or safety concerns N. 4 steps 88-Not attempted due to medical condition or safety concerns O. 12 steps 88-Not attempted due to medical condition or safety concerns P. Picking up object 04-Supervision or touching assistance R. Wheel 50 feet with two turns 88-Not attempted due to medical condition or safety concerns S. Wheel 150 feet 03-Partial/moderate assistance - Bladder and Bowel Bladder continence Bowel continence - Endurance Good - Balance Good - Safety Awareness Good CURRENT FUNC. DEFICITS: Self-Care and Mobility SIGNATURE PANEL: (CDT)
[2019-08-17] MEDS: [UNRECOGNIZED DRUG - OTHER] OPTH SCH (20:31)
[2019-08-17] MEDS: ATORVASTATIN 40 MG TAB PO SCH (20:31)
[2019-08-17] MEDS: MAGNESIUM OXIDE 400 MG TAB PO SCH (20:31)
[2019-08-17] MEDS: ramipriL 5 MG CAP PO SCH (20:31)
[2019-08-17] MEDS: LORAZEPAM 0.5 MG TABLET PO PRN (23:25)
[2019-08-18] MEDS: carvediloL 3.125 MG TAB PO SCH ×2 (05:31→16:47)
[2019-08-18 06:01] LABS: Absolute Lymphocytes (CBC) 1.2 K/uL (0.7-4.9); Basophils % 0.5 % (0-1.3); Hematocrit 43.6 % (39.6-49.0); MPV 7.2 fL (7.6-11.3); RBC Red Blood Cell Count 4.57 M/uL (4.33-5.43)
[2019-08-18 06:10] LABS: Albumin 3.6 g/dL (3.4-5.0); Potassium 4.7 mmol/L (3.5-5.1); Prealbumin 27.7 mg/dL (20-40)
[2019-08-18] MEDS: PANTOPRAZOLE 40MG TABLET PO SCH (06:39)
[2019-08-18] MEDS: INSULIN -REGULAR HUMAN 50 UNIT/0.5 ML ML SQ SCH ×4 (07:30→21:00)
[2019-08-18] MEDS: TIMOLOL OPTH SCH ×2 (07:52→16:47)
[2019-08-18] MEDS: VITAMIN D 5,000 UNIT CAP PO SCH (07:52)
[2019-08-18] MEDS: DORZOLAMIDE OPTH SCH ×2 (07:52→16:47)
[2019-08-18] MEDS: APIXABAN 2.5 MG TABLET PO SCH ×2 (07:53→21:37)
[2019-08-18] MEDS: AMLODIPINE 2.5 MG TAB PO SCH (07:53)
[2019-08-18] MEDS: CYANOCOBALAMIN 1,000 MCG TAB PO SCH (07:53)
[2019-08-18] MEDS: CLOPIDOGREL 75 MG TABLET PO SCH (07:53)
[2019-08-18] MEDS: ASPIRIN EC 81 MG TAB PO SCH (07:53)
[2019-08-18] MEDS: FOLIC ACID 1 MG TABLET PO SCH (07:54)
[2019-08-18] MEDS: DOCUSATE NA 100 MG CAP PO SCH ×2 (07:54→21:38)
[2019-08-18] MEDS: FENOFIBRATE 160 MG TAB PO SCH (07:54)
[2019-08-18] MEDS: BISOPROLOL/HCTZ 2.5/6.25MG TAB PO SCH (10:05)
--- NOTE | 2019-08-18 14:32 | FAST ---
SHIFT START DATE/TIME: 08/18/2019 07:00 (CDT) SHIFT END DATE/TIME: 08/18/2019 19:00 (CDT) NAME JOSUE KHALIL DATE OF : 1940 DATE OF ADMISSION: 08/15/2019 11:28 (CDT) PHONE: AGE: 78 N# [id number] GENDER: Male ENCOUNTER PHYSICIAN: Dr. Waqar Azul M.D. ADMISSION DIAGNOSIS: - Stroke 01 - Left Body (Right Brain) (01.1) CVA. EATING: EATING - STEP 1: Does the patient complete the activity by him/herself with no assistance (physical, verbal/nonverbal cueing, setup/clean-up)? No. EATING - STEP 2: Does the patient need only setup/clean-up assistance from one helper? Yes. 1. [id number] ADMISSION PERFORMANCE: Setup or clean-up assistance CODE: 05 ORAL HYGIENE: ORAL HYGIENE - STEP 1: Does the patient complete the activity by him/herself with no assistance (physical, verbal/nonverbal cueing, setup/clean-up)? No. ORAL HYGIENE - STEP 2: Does the patient need only setup/clean-up assistance from one helper? Yes. 1. [id number] ADMISSION PERFORMANCE: Setup or clean-up assistance CODE: 05 TOILETING HYGIENE: TOILETING HYGIENE - STEP 1: Does the patient complete the activity by him/herself with no assistance (physical, verbal/nonverbal cueing, setup/clean-up)? No. TOILETING HYGIENE - STEP 2: Does the patient need only setup/clean-up assistance from one helper? Yes. 1. [id number] ADMISSION PERFORMANCE: Setup or clean-up assistance CODE: 05 BATHING: Not assessed/no information CODE: - DRESSING - UPPER BODY: Not assessed/no information CODE: - DRESSING - LOWER BODY: Not assessed/no information CODE: - PUTTING ON/TAKING OFF FOOTWEAR: Not assessed/no information CODE: - ROLL LEFT AND RIGHT: ROLL LEFT AND RIGHT - STEP 1: Does the patient complete the activity by him/herself with no assistance (physical, verbal/nonverbal cueing, setup/clean-up)? No. ROLL LEFT AND RIGHT - STEP 2: Does the patient need only setup/clean-up assistance from one helper? No. ROLL LEFT AND RIGHT - STEP 3: Does the patient need only verbal/nonverbal cueing or touching/steadying/contact guard assistance fro m one helper? Yes. 1. [id number] ADMISSION PERFORMANCE: Supervision or touching assistance CODE: 04 SIT TO LYING: SIT TO LYING - STEP 1: Does the patient complete the activity by him/herself with no assistance (physical, verbal/nonverbal cueing, setup/clean-up)? No. SIT TO LYING - STEP 2: Does the patient need only setup/clean-up assistance from one helper? No. SIT TO LYING - STEP 3: Does the patient need only verbal/nonverbal cueing or touching/steadying/contact guard assistance fro m one helper? Yes. 1. [id number] ADMISSION PERFORMANCE: Supervision or touching assistance CODE: 04 LYING TO SITTING: LYING TO SITTING ON SIDE OF BED - STEP 1: Does the patient complete the activity by him/herself with no assistance (physical, verbal/nonverbal cueing, setup/clean-up)? No. LYING TO SITTING ON SIDE OF BED - STEP 2: Does the patient need only setup/clean-up assistance from one helper? Yes. 1. [id number] ADMISSION PERFORMANCE: Setup or clean-up assistance CODE: 05 SIT TO STAND: SIT TO STAND - STEP 1: Does the patient complete the activity by him/herself with no assistance (physical, verbal/nonverbal cueing, setup/clean-up)? No. SIT TO STAND - STEP 2: Does the patient need only setup/clean-up assistance from one helper? Yes. 1. [id number] ADMISSION PERFORMANCE: Setup or clean-up assistance CODE: 05 TRANSFERS: BED, CHAIR: CHAIR/[id number] TRANSFER - STEP 1: Does the patient complete the activity by him/herself with no assistance (physical, verbal/nonverbal cueing, setup/clean-up)? No. CHAIR/[id number] TRANSFER - STEP 2: Does the patient need only setup/clean-up assistance from one helper? No. CHAIR/[id number] TRANSFER - STEP 3: Does the patient need only verbal/nonverbal cueing or touching/steadying/contact guard assistance fro m one helper? Yes. 1. [id number] ADMISSION PERFORMANCE: Supervision or touching assistance CODE: 04 TRANSFER TOILET: TOILET TRANSFER - STEP 1: Does the patient complete the activity by him/herself with no assistance (physical, verbal/nonverbal cueing, setup/clean-up)? No. TOILET TRANSFER - STEP 2: Does the patient need only setup/clean-up assistance from one helper? Yes. 1. [id number] ADMISSION PERFORMANCE: Setup or clean-up assistance CODE: 05 TRANSFERS: CAR: Not assessed/no information CODE: - WALK 10 FEET: Not assessed/no information CODE: - WALK 50 FEET: Not assessed/no information CODE: - WALK 150 FEET: Not assessed/no information CODE: - WALK 10 FEET UNEVEN: Not assessed/no information CODE: - 1 STEP (CURB): Not assessed/no information CODE: - 4 STEPS: Not assessed/no information CODE: - 12 STEPS: Not assessed/no information CODE: - PICKING UP OBJECT: Not assessed/no information CODE: - DOES THE PATIENT USE A WHEELCHAIR/SCOOTER? Q1. DOES THE PATIENT USE A WHEELCHAIR/SCOOTER?: Yes CODE: 1 WHEEL 50 FEET WITH TWO TURNS: WHEEL 50 FEET WITH TWO TURNS - STEP 1: Does the patient complete the activity by him/herself with no assistance (physical, verbal/nonverbal cueing, setup/clean-up)? No. WHEEL 50 FEET WITH TWO TURNS - STEP 2: Does the patient need only setup/clean-up assistance from one helper? No. WHEEL 50 FEET WITH TWO TURNS - STEP 3: Does the patient need only verbal/nonverbal cueing or touching/steadying/contact guard assistance fro m one helper? Yes. 1. [id number] ADMISSION PERFORMANCE: Supervision or touching assistance CODE: 04 INDICATE THE TYPE OF WHEELCHAIR/SCOOTER USED: RR1. INDICATE THE TYPE OF WHEELCHAIR/SCOOTER USED.: Manual CODE: 1 WHEEL 150 FEET: WHEEL 150 FEET - STEP 1: Does the patient complete the activity by him/herself with no assistance (physical, verbal/nonverbal cueing, setup/clean-up)? No. WHEEL 150 FEET - STEP 2: Does the patient need only setup/clean-up assistance from one helper? No. WHEEL 150 FEET - STEP 3: Does the patient need only verbal/nonverbal cueing or touching/steadying/contact guard assistance fro m one helper? Yes. 1. [id number] ADMISSION PERFORMANCE: Supervision or touching assistance CODE: 04 INDICATE THE TYPE OF WHEELCHAIR/SCOOTER USED: SS1. INDICATE THE TYPE OF WHEELCHAIR/SCOOTER USED.: Manual CODE: 1 BLADDER AND BOWEL: H350. BLADDER CONTINENCE (3-DAY ASSESSMENT PERIOD): Always continent (no documented incontinence) CODE: 0 H400. BOWEL CONTINENCE (3-DAY ASSESSMENT PERIOD): Always continent CODE: 0 SIGNATURE PANEL: The following modified sections: 1. [id number] Admission Performance, 1. [id number] Admission Performance, 1. [id number] Admission Performance, 1. [id number] Admission Performance, 1. [id number] Admission Performance, 1. [id number] Admission Performance, 1. [id number] Admission Performance, 1. [id number] Admission Performance , Q1. Does the patient use a wheelchair/scooter?, 1. [id number] Admission Performance, RR1. Indicate the type of wheelchair/scooter used., 1. [id number] Admission Performance, Code, SS1. Indicate the type of wheelchair/scooter used., H350. Bladder Continence (3-day assessment period), H400. Bowel Continence (3-day assessment period), 1. [id number] Admission Performance, 1. [id number] Admission Performance were [e lectronically] signed by Syd WestonNMackenzie on ThuAug 18 2019 14:32:08 [facility]-0500 (Central Daylight Time)
--- NOTE | 2019-08-18 18:06 | R.PN ---
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 SUBJECTIVE: Pt denied any depression. Pt denied any Shortness of Breath. CBC with differential is essentially normal. Block Layer 1.63 and glucose 102 to 177, prealbumin 27.7. Increa se water intake to 6-8 glasses daily. Ambulated 300' with standby assistance using a rolling walker. Up and down 5 steps with contact guard assistance. VITAL SIGNS Temperature: 97.8 F SBP/DBP: 134/60 Pulse: 65 Resp: 16 MEDICATION ALLERGIES: No Known Drug Allergies (NKDA) ENVIRONMENTAL ALLERGIES: - Substance Allergies None Known - Other Allergies None Known NURSING: - Shower allowing shower - Bladder care per protocol - Skin care per protocol PRECAUTIONS: - Weight Bearing Precaution WBAT left LE ACTIVITIES OOB only with supervision THERAPIES: - Occupational Therapy Cognitive Retraining. Visual Perceptual Training. - Dietary and Nutrition Adequate Nutrition. Nutritional Education. Nutritional Supplements. - Speech Therapy Cognitive Training. Expressive Language Skills. Memory Strategies. Receptive Language Skills. Speech Intelligibility Training. PHYSICAL EXAM - Gen Alert and awake Lying in bed No apparent distress Oriented to: person, time, and place - Skin No skin breakdown. Normacephalic - Eyes Mild left visual visual field deficit - ENMT No abnormalities - Neck No abnormalities No cervical adenopathy - CVS RRR - Chest No abnormalities - Abd + bowel sounds - GI nondistended Deferred - No abnormalities - Ext No significant edema - MSK No Muscle Weakness - Neuro Left face, arm and leg numbness with incoordination and gait ataxia. - Psych No abnormalities ASSESSMENT: Pt. is a 78 yo Right-handed male.On 08/08/2019 Pt. presented to [facility] with castañeda dden onset of left-side weakness.On 08/11/2019 he was admitted to [facility] with diagno sis CVA.His impairment category is Stroke 01 - Left Body (Right Brain) (01.1).Pre-morbidly, Pt. was independent/mod-I in Safety Awareness, Social Cognition, Transfers Control, Sphincter Control, and Se lf-Care; and he had good Balance, Endurance, Communication, and Locomotion.Currently, he has deficits of Locomotion, Balance, Safety Awareness, Social Cognition, Sphincter Control, Self-Care, and Endura nce.Pt. is now referred to [facility] for acute in-patient rehabilitation in [facility] to maximize patient's functional independence in activities of daily living, strength, ROM, and mobility.- Rehab Goal Patient has realistic goal of being discharged at assistance level 3-modA to reside at Home with Fam carmel/Relatives. MDM/PLAN: - Physical Therapy Need for home safety evaluation - to improve, our physical therapists will perform initial evaluatio n of pt's status upon admission and devise an individualized program for Home Evaluation Need in caregiver upon discharge - to improve, our physical therapists will perform initial evaluati on of pt's status upon admission and devise an individualized program for Caregiver Training New precaution - to improve, our physical therapists will perform initial evaluation of pt's status upon admission and devise an individualized program for Patient precaution education Edema - to improve, our physical therapists will perform initial evaluation of pt's status upon admi ssion and devise an individualized program for Elevation Training, and Lymphedema Therapy Poor balance - to improve, our physical therapists will perform initial evaluation of pt's status up on admission and devise an individualized program for Balance Training Poor endurance - to improve, our physical therapists will perform initial evaluation of pt's status upon admission and devise an individualized program for Endurance Training Achieving independence - to improve, our physical therapists will perform initial evaluation of pt's status upon admission and devise an individualized program for Community Reintegration Activities - Occupational Therapy ADL deficits - to improve, our occupation therapists will perform initial evaluation of pt's status upon admission and devise an individualized program for Bathing, Bed mobility, Community Reintegratio n, Cooking, Dressing, Eating, Fine Motor Skills, Grooming, Homemaking, Kitchen Mobility, Laundry, Pat ient Education, Safety Awareness, Splinting - Positioning, Transfers(Toilet, Tub, Shower), and Wheel Chair Management Cognitive deficits - to improve, our occupation therapists will perform initial evaluation of pt's s tatus upon admission and devise an individualized program for Cognition - orientation Need for senior care assistant - to improve, our occupation therapists will perform initial evaluation of pt's status upon admission and devise an individualized program for Caregiver Training - Other See attached MAR (Medication Administration Record) - Diet Type Continue Regular - Diet - Liquid Texture Continue Regular - Tube Feed Continue N/A - Bladder care per protocol - Weight Bearing Precaution WBAT left LE - Skin care per protocol - Diet - Solid Texture Continue Regular - Shower allowing shower for Dementia, TBI, Stroke, or others FUNCTIONAL STATUS: UPDATED AT WEEKLY TEAM CONFERENCE - Bladder Same accident frequency: 7-Ind - No accidents in the past 7 days - Bowel Same accident frequency: 7-Ind - No accidents in the past 7 days - Walking Same score based on distance walked: 0(N/A) Same score based on distance walked: 3(>=150ft) - Wheelchair Same score based on distance traveled: 0(N/A) FUNCTIONAL STATUS: - Self-Care A. Eating Ind B. Grooming sup C. Bathing modA D. Dressing - Upper Marlon E. Dressing - Lower modA F. Toileting Marlon - Sphincter Control G. Bladder control sup H. Bowel control sup - Transfers Control I. Bed/Chair/Wheelchair Marlon J. Toilet Marlon K. Tub/Shower modA - Locomotion L. Walk/Wheelchair (B) Marlon M. Stairs modA - Communication N. Comprehension (B) Marlon O. Expression (B) sup - Social Cognition P. Social Interaction Abimael Q. Problem Solving Abimael R. Memory Abimael - Endurance Good - Balance Fair - Safety Awareness Fair QI SCORES: - Self-Care A. Eating 03-Partial/moderate assistance B. Oral hygiene 03-Partial/moderate assistance C. Toileting hygiene 03-Partial/moderate assistance E. Shower/bathe self 03-Partial/moderate assistance F. Upper body dressing 04-Supervision or touching assistance G. Lower body dressing 03-Partial/moderate assistance H. Putting on/taking off footwear 03-Partial/moderate assistance - Mobility A. Roll left and right 04-Supervision or touching assistance B. Sit to lying 03-Partial/moderate assistance C. Lying to sitting on side of bed 03-Partial/moderate assistance D. Sit to stand 03-Partial/moderate assistance E. Chair/[id number] transfer 03-Partial/moderate assistance F. Toilet transfer 03-Partial/moderate assistance G. Car transfer 88-Not attempted due to medical condition or safety concerns I. Walk 10 feet 03-Partial/moderate assistance J. Walk 50 feet with two turns 88-Not attempted due to medical condition or safety concerns K. Walk 150 feet 03-Partial/moderate assistance L. Walking 10 feet on uneven surfaces 88-Not attempted due to medical condition or safety concerns M. 1 step (curb) 88-Not attempted due to medical condition or safety concerns N. 4 steps 88-Not attempted due to medical condition or safety concerns O. 12 steps 88-Not attempted due to medical condition or safety concerns P. Picking up object 04-Supervision or touching assistance R. Wheel 50 feet with two turns 88-Not attempted due to medical condition or safety concerns S. Wheel 150 feet 03-Partial/moderate assistance - Bladder and Bowel Bladder continence Bowel continence - Endurance Good - Balance Good - Safety Awareness Good CURRENT FUNC. DEFICITS: Self-Care and Mobility SIGNATURE PANEL: (CDT)
[2019-08-18] MEDS: MAGNESIUM OXIDE 400 MG TAB PO SCH (21:37)
[2019-08-18] MEDS: ATORVASTATIN 40 MG TAB PO SCH (21:37)
[2019-08-18] MEDS: LORAZEPAM 0.5 MG TABLET PO PRN (21:38)
[2019-08-18] MEDS: [UNRECOGNIZED DRUG - OTHER] OPTH SCH (21:38)
[2019-08-18] MEDS: ramipriL 5 MG CAP PO SCH (21:38)
[2019-08-19] MEDS: carvediloL 3.125 MG TAB PO SCH ×2 (05:01→16:51)
[2019-08-19] MEDS: PANTOPRAZOLE 40MG TABLET PO SCH (06:38)
[2019-08-19] MEDS: INSULIN -REGULAR HUMAN 50 UNIT/0.5 ML ML SQ SCH ×4 (07:30→21:00)
[2019-08-19] MEDS: FENOFIBRATE 160 MG TAB PO SCH (07:46)
[2019-08-19] MEDS: DOCUSATE NA 100 MG CAP PO SCH ×2 (07:46→19:17)
[2019-08-19] MEDS: BISOPROLOL/HCTZ 2.5/6.25MG TAB PO SCH (07:47)
[2019-08-19] MEDS: CLOPIDOGREL 75 MG TABLET PO SCH (07:47)
[2019-08-19] MEDS: AMLODIPINE 2.5 MG TAB PO SCH (07:48)
[2019-08-19] MEDS: ASPIRIN EC 81 MG TAB PO SCH (07:48)
[2019-08-19] MEDS: FOLIC ACID 1 MG TABLET PO SCH (07:48)
[2019-08-19] MEDS: VITAMIN D 5,000 UNIT CAP PO SCH (07:48)
[2019-08-19] MEDS: DORZOLAMIDE OPTH SCH ×2 (07:50→15:15)
[2019-08-19] MEDS: APIXABAN 2.5 MG TABLET PO SCH ×2 (07:50→19:17)
[2019-08-19] MEDS: TIMOLOL OPTH SCH ×2 (07:50→15:15)
--- NOTE | 2019-08-19 09:57 | P.RH.PN ---
Estimated Length of Stay: 12 Expected Discharge Date: 08/26/19 Discharge Disposition Plan: Home Family Support: Yes [facility] Goal: Mobility, Transfers, Self Care Vital Signs: Last Vital Signs Temp 97.4 F 08/19/19 08:00 Pulse 67 08/19/19 08:00 Resp 16 08/19/19 08:00 BP 142/75 H 08/19/19 08:00 Pulse Ox 98 08/19/19 08:00 Laboratory: Laboratory Last Values WBC 5.6 K/uL (4.3-10.9) 08/18/19 05:40 RBC 4.57 M/uL (4.33-5.43) 08/18/19 05:40 Hgb 14.5 g/dL (13.6-17.9) 08/18/19 05:40 Hct 43.6 % (39.6-49.0) 08/18/19 05:40 MCV 95.4 fL (80-100) 08/18/19 05:40 MCH 31.7 pg (27.0-35.0) 08/18/19 05:40 MCHC 33.2 g/dL (32.0-36.0) 08/18/19 05:40 RDW 12.8 % (12.1-15.2) 08/18/19 05:40 Plt Count 298 K/uL (152-406) 08/18/19 05:40 MPV 7.2 fL (7.6-11.3) L 08/18/19 05:40 Neutrophils % 61.1 % (41.7-73.7) 08/18/19 05:40 Lymphocytes % 22.0 % (15.3-44.8) 08/18/19 05:40 Monocytes % 14.6 % (3.3-12.3) H 08/18/19 05:40 Eosinophils % 1.8 % (0-4.4) 08/18/19 05:40 Basophils % 0.5 % (0-1.3) 08/18/19 05:40 Absolute Neutrophils 3.4 K/uL (1.8-8.0) 08/18/19 05:40 Absolute Lymphocytes 1.2 K/uL (0.7-4.9) 08/18/19 05:40 Absolute Monocytes 0.8 K/uL (0.1-1.3) 08/18/19 05:40 Absolute Eosinophils 0.1 K/uL (0-0.5) 08/18/19 05:40 Absolute Basophils 0.0 K/uL (0-0.5) 08/18/19 05:40 Morphology Comment Not seen (NOT SEEN) 08/16/19 05:35 Sodium 137 mmol/L (136-145) 08/18/19 05:40 Potassium 4.7 mmol/L (3.5-5.1) 08/18/19 05:40 Chloride 103 mmol/L (98-107) 08/18/19 05:40 Carbon Dioxide 27 mmol/L (21-32) 08/18/19 05:40 BUN 31 mg/dL (7-18) H 08/18/19 05:40 Creatinine 1.63 mg/dL (0.55-1.3) H 08/18/19 05:40 Estimated GFR 41 mL/min (=/>90) L 08/18/19 05:40 Glucose 110 mg/dL (74-106) H 08/18/19 05:40 POC Glucose 128 mg/dL (65-120) H 08/19/19 07:22 Calcium 9.3 mg/dL (8.5-10.1) 08/18/19 05:40 Magnesium 2.2 mg/dL (1.8-2.4) 08/16/19 05:35 Albumin 3.6 g/dL (3.4-5.0) 08/18/19 05:40 Prealbumin 27.7 mg/dL (20-40) 08/18/19 05:40 Urine Color Yellow 08/15/19 16:00 Urine Appearance Clear 08/15/19 16:00 Urine pH 6.0 (5.0-7.0) 08/15/19 16:00 Ur Specific Dickerson 1.010 (1.005-1.030) 08/15/19 16:00 Glucose (UA)(Auto) Negative (NEG) 08/15/19 16:00 Urine Ketones Negative (NEG) 08/15/19 16:00 Urine Blood Negative (NEG) 08/15/19 16:00 Urine Nitrite Negative (NEG) 08/15/19 16:00 Urine Bilirubin Negative (NEG) 08/15/19 16:00 Urine Urobilinogen 0.2 mg/dL (0.2-1.0) 08/15/19 16:00 Ur Leukocyte Esterase Negative (NEG) 08/15/19 16:00 Urine RBC <5 /HPF (NONE SEEN) 08/15/19 16:00 Urine WBC None seen /HPF (<5) 08/15/19 16:00 Ur Squamous Epith Cells <5 /HPF (NONE SEEN) 08/15/19 16:00 Urine Bacteria None seen /HPF (NONE SEEN) 08/15/19 16:00 Urine Culture Reflexed Not needed 08/15/19 16:00 Urine Total Protein Negative (NEG) 08/15/19 16:00 Weight: 137 lb Wound Present: No Closed Surgical Incision Present: No Negative Pressure Wound Therapy Present: No Physician Update: Labs reviewed and are stable. He appears fatigued most of the time but is likely depressed. Will try vitamin B12 1000 mcg daily. He has problems with balance and is afraid of the quad cane. He uses the rolling walker well. Summary: Patient's care plan and retirement goals have been reviewed and revised as necessary. Please see the Rehabilitation Signature page for all necessary signatures.
[2019-08-19] MEDS ORDERED: CALCIUM CARBONATE 750 MG PO PRN (18:19)
[2019-08-19] MEDS: MAGNESIUM OXIDE 400 MG TAB PO SCH (21:00)
[2019-08-19] MEDS: ATORVASTATIN 40 MG TAB PO SCH (21:51)
[2019-08-19] MEDS: ramipriL 5 MG CAP PO SCH (21:51)
[2019-08-19] MEDS: [UNRECOGNIZED DRUG - OTHER] OPTH SCH (21:51)
[2019-08-20] MEDS: LORAZEPAM 0.5 MG TABLET PO PRN (00:30)
[2019-08-20] MEDS: carvediloL 3.125 MG TAB PO SCH ×2 (05:22→17:06)
[2019-08-20 05:28] VITALS: BMI 23.6
[2019-08-20] MEDS: INSULIN -REGULAR HUMAN 50 UNIT/0.5 ML ML SQ SCH ×4 (07:30→20:19)
[2019-08-20] MEDS: PANTOPRAZOLE 40MG TABLET PO SCH (07:35)
[2019-08-20] MEDS: TIMOLOL OPTH SCH ×2 (07:55→17:06)
[2019-08-20] MEDS: DORZOLAMIDE OPTH SCH ×2 (07:55→17:06)
[2019-08-20] MEDS: BISOPROLOL/HCTZ 2.5/6.25MG TAB PO SCH (07:55)
[2019-08-20] MEDS: DOCUSATE NA 100 MG CAP PO SCH ×2 (07:56→20:01)
[2019-08-20] MEDS: ASPIRIN EC 81 MG TAB PO SCH (07:56)
[2019-08-20] MEDS: AMLODIPINE 2.5 MG TAB PO SCH (07:56)
[2019-08-20] MEDS: CYANOCOBALAMIN 1,000 MCG TAB PO SCH (07:56)
[2019-08-20] MEDS: APIXABAN 2.5 MG TABLET PO SCH ×2 (07:57→20:01)
[2019-08-20] MEDS: DULOXETINE 20 MG CAP PO SCH (07:57)
[2019-08-20] MEDS: FENOFIBRATE 160 MG TAB PO SCH (07:57)
[2019-08-20] MEDS: CLOPIDOGREL 75 MG TABLET PO SCH (07:57)
[2019-08-20] MEDS: FOLIC ACID 1 MG TABLET PO SCH (07:57)
[2019-08-20] MEDS: VITAMIN D 5,000 UNIT CAP PO SCH (07:57)
[2019-08-20] MEDS: ramipriL 5 MG CAP PO SCH (20:01)
[2019-08-20] MEDS: [UNRECOGNIZED DRUG - OTHER] OPTH SCH (20:01)
[2019-08-20] MEDS: MAGNESIUM OXIDE 400 MG TAB PO SCH (20:01)
[2019-08-20] MEDS: ATORVASTATIN 40 MG TAB PO SCH (20:01)
[2019-08-21] MEDS: carvediloL 3.125 MG TAB PO SCH ×2 (05:01→17:00)
[2019-08-21] MEDS: PANTOPRAZOLE 40MG TABLET PO SCH (06:25)
[2019-08-21 06:47] LABS: Potassium 4.7 mmol/L (3.5-5.1)
[2019-08-21] MEDS: INSULIN -REGULAR HUMAN 50 UNIT/0.5 ML ML SQ SCH ×5 (07:20→20:04)
[2019-08-21] MEDS: DOCUSATE NA 100 MG CAP PO SCH ×2 (07:45→20:02)
[2019-08-21] MEDS: TIMOLOL OPTH SCH ×2 (07:45→16:10)
[2019-08-21] MEDS: BISOPROLOL/HCTZ 2.5/6.25MG TAB PO SCH (07:45)
[2019-08-21] MEDS: DORZOLAMIDE OPTH SCH ×2 (07:45→16:10)
[2019-08-21] MEDS: FOLIC ACID 1 MG TABLET PO SCH (07:46)
[2019-08-21] MEDS: VITAMIN D 5,000 UNIT CAP PO SCH (07:46)
[2019-08-21] MEDS: APIXABAN 2.5 MG TABLET PO SCH ×2 (07:46→20:02)
[2019-08-21] MEDS: CYANOCOBALAMIN 1,000 MCG TAB PO SCH (07:46)
[2019-08-21] MEDS: FENOFIBRATE 160 MG TAB PO SCH (07:46)
[2019-08-21] MEDS: DULOXETINE 20 MG CAP PO SCH (07:46)
[2019-08-21] MEDS: CLOPIDOGREL 75 MG TABLET PO SCH (07:46)
[2019-08-21] MEDS: ASPIRIN EC 81 MG TAB PO SCH (07:46)
[2019-08-21] MEDS: AMLODIPINE 2.5 MG TAB PO SCH (12:27)
[2019-08-21] MEDS: ramipriL 5 MG CAP PO SCH (20:02)
[2019-08-21] MEDS: ATORVASTATIN 40 MG TAB PO SCH (20:03)
[2019-08-21] MEDS: [UNRECOGNIZED DRUG - OTHER] OPTH SCH (20:03)
[2019-08-21] MEDS: MAGNESIUM OXIDE 400 MG TAB PO SCH (20:04)
[2019-08-21] MEDS: cloNIDine HCL 0.1 MG TAB PO PRN (21:42)
[2019-08-21] MEDS: LORAZEPAM 0.5 MG TABLET PO PRN (22:50)
--- NOTE | 2019-08-22 02:23 | FAST ---
SHIFT START DATE/TIME: 08/21/2019 19:00 (CDT) SHIFT END DATE/TIME: 08/22/2019 07:00 (CDT) NAME JOSUE KHALIL DATE OF : 1940 DATE OF ADMISSION: 08/15/2019 11:28 (CDT) PHONE: AGE: 78 SSN# [id number] GENDER: Male ENCOUNTER PHYSICIAN: Dr. Waqar Azul M.D. ADMISSION DIAGNOSIS: - Stroke 01 - Left Body (Right Brain) (01.1) CVA. EATING: Not assessed/no information CODE: - ORAL HYGIENE: Not assessed/no information CODE: - TOILETING HYGIENE: TOILETING HYGIENE - STEP 1: Does the patient complete the activity by him/herself with no assistance (physical, verbal/nonverbal cueing, setup/clean-up)? No. TOILETING HYGIENE - STEP 2: Does the patient need only setup/clean-up assistance from one helper? No. TOILETING HYGIENE - STEP 3: Does the patient need only verbal/nonverbal cueing or touching/steadying/contact guard assistance fro m one helper? No. TOILETING HYGIENE - STEP 4: Does the patient need physical assistance - for example lifting or trunk support from one helper - wi th the helper providing less than half of the effort? Yes. 1. [id number] ADMISSION PERFORMANCE: Partial/moderate assistance CODE: 03 BATHING: Not assessed/no information CODE: - DRESSING - UPPER BODY: Not assessed/no information CODE: - DRESSING - LOWER BODY: Not assessed/no information CODE: - PUTTING ON/TAKING OFF FOOTWEAR: Not assessed/no information CODE: - ROLL LEFT AND RIGHT: ROLL LEFT AND RIGHT - STEP 1: Does the patient complete the activity by him/herself with no assistance (physical, verbal/nonverbal cueing, setup/clean-up)? No. ROLL LEFT AND RIGHT - STEP 2: Does the patient need only setup/clean-up assistance from one helper? No. ROLL LEFT AND RIGHT - STEP 3: Does the patient need only verbal/nonverbal cueing or touching/steadying/contact guard assistance fro m one helper? No. ROLL LEFT AND RIGHT - STEP 4: Does the patient need physical assistance - for example lifting or trunk support from one helper - wi th the helper providing less than half of the effort? Yes. 1. [id number] ADMISSION PERFORMANCE: Partial/moderate assistance CODE: 03 SIT TO LYING: SIT TO LYING - STEP 1: Does the patient complete the activity by him/herself with no assistance (physical, verbal/nonverbal cueing, setup/clean-up)? No. SIT TO LYING - STEP 2: Does the patient need only setup/clean-up assistance from one helper? No. SIT TO LYING - STEP 3: Does the patient need only verbal/nonverbal cueing or touching/steadying/contact guard assistance fro m one helper? Yes. 1. [id number] ADMISSION PERFORMANCE: Supervision or touching assistance CODE: 04 LYING TO SITTING: LYING TO SITTING ON SIDE OF BED - STEP 1: Does the patient complete the activity by him/herself with no assistance (physical, verbal/nonverbal cueing, setup/clean-up)? No. LYING TO SITTING ON SIDE OF BED - STEP 2: Does the patient need only setup/clean-up assistance from one helper? No. LYING TO SITTING ON SIDE OF BED - STEP 3: Does the patient need only verbal/nonverbal cueing or touching/steadying/contact guard assistance fro m one helper? Yes. 1. [id number] ADMISSION PERFORMANCE: Supervision or touching assistance CODE: 04 SIT TO STAND: SIT TO STAND - STEP 1: Does the patient complete the activity by him/herself with no assistance (physical, verbal/nonverbal cueing, setup/clean-up)? No. SIT TO STAND - STEP 2: Does the patient need only setup/clean-up assistance from one helper? No. SIT TO STAND - STEP 3: Does the patient need only verbal/nonverbal cueing or touching/steadying/contact guard assistance fro m one helper? Yes. 1. [id number] ADMISSION PERFORMANCE: Supervision or touching assistance CODE: 04 TRANSFERS: BED, CHAIR: Not assessed/no information CODE: - TRANSFER TOILET: Not assessed/no information CODE: - TRANSFERS: CAR: Not assessed/no information CODE: - WALK 10 FEET: Not assessed/no information CODE: - 1 STEP (CURB): Not assessed/no information CODE: - PICKING UP OBJECT: Not assessed/no information CODE: - DOES THE PATIENT USE A WHEELCHAIR/SCOOTER? CODE: EXPR WHEEL 50 FEET WITH TWO TURNS: Not assessed/no information CODE: - INDICATE THE TYPE OF WHEELCHAIR/SCOOTER USED: CODE: EXPR WHEEL 150 FEET: Not assessed/no information CODE: - INDICATE THE TYPE OF WHEELCHAIR/SCOOTER USED: CODE: EXPR BLADDER AND BOWEL: H350. BLADDER CONTINENCE (3-DAY ASSESSMENT PERIOD): Always continent (no documented incontinence) CODE: 0 H400. BOWEL CONTINENCE (3-DAY ASSESSMENT PERIOD): Always continent CODE: 0
[2019-08-22] MEDS: cloNIDine HCL 0.1 MG TAB PO PRN (03:08)
[2019-08-22] MEDS: carvediloL 3.125 MG TAB PO SCH ×3 (05:30→16:49)
[2019-08-22] MEDS: PANTOPRAZOLE 40MG TABLET PO SCH (06:46)
[2019-08-22] MEDS: INSULIN -REGULAR HUMAN 50 UNIT/0.5 ML ML SQ SCH ×4 (06:52→20:06)
[2019-08-22] MEDS: FENOFIBRATE 160 MG TAB PO SCH (07:29)
[2019-08-22] MEDS: CLOPIDOGREL 75 MG TABLET PO SCH (07:30)
[2019-08-22] MEDS: DOCUSATE NA 100 MG CAP PO SCH ×2 (07:30→19:27)
[2019-08-22] MEDS: DULOXETINE 20 MG CAP PO SCH (07:30)
[2019-08-22] MEDS: FOLIC ACID 1 MG TABLET PO SCH (07:30)
[2019-08-22] MEDS: APIXABAN 2.5 MG TABLET PO SCH ×2 (07:31→19:27)
[2019-08-22] MEDS: VITAMIN D 5,000 UNIT CAP PO SCH (07:31)
[2019-08-22] MEDS: ASPIRIN EC 81 MG TAB PO SCH (07:31)
[2019-08-22] MEDS: CYANOCOBALAMIN 1,000 MCG TAB PO SCH (07:31)
[2019-08-22] MEDS: BISOPROLOL/HCTZ 2.5/6.25MG TAB PO SCH (07:32)
[2019-08-22] MEDS: TIMOLOL OPTH SCH ×2 (07:33→16:50)
[2019-08-22] MEDS: DORZOLAMIDE OPTH SCH ×2 (07:33→16:50)
[2019-08-22] MEDS: AMLODIPINE 2.5 MG TAB PO SCH (11:15)
[2019-08-22 12:02] LABS: Potassium 4.4 mmol/L (3.5-5.1)
--- NOTE | 2019-08-22 17:22 | R.PN ---
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 SUBJECTIVE: Pt denied any depression. Pt denied any Shortness of Breath. CBC with differential is essentially normal. Bobbin Cleaner 1.63 and glucose 113 to 136, prealbumin 27.7. Increa se water intake to 6-8 glasses daily. Na decreased to 126 and Cl to 94. Will increase NaCl intake. Ambulated 300' with standby assistance using a rolling walker. Up and down 5 steps with contact guard assistance. Grooming done independently. Therapeutic exercises done well with supervision. VITAL SIGNS Temperature: 97.8 F SBP/DBP: 154/67 Pulse: 67 Resp: 16 MEDICATION ALLERGIES: No Known Drug Allergies (NKDA) ENVIRONMENTAL ALLERGIES: - Substance Allergies None Known - Other Allergies None Known NURSING: - Shower allowing shower - Bladder care per protocol - Skin care per protocol PRECAUTIONS: - Weight Bearing Precaution WBAT left LE ACTIVITIES OOB only with supervision THERAPIES: - Occupational Therapy Cognitive Retraining. Visual Perceptual Training. - Dietary and Nutrition Adequate Nutrition. Nutritional Education. Nutritional Supplements. - Speech Therapy Cognitive Training. Expressive Language Skills. Memory Strategies. Receptive Language Skills. Speech Intelligibility Training. PHYSICAL EXAM - Gen Alert and awake Lying in bed No apparent distress Oriented to: person, time, and place - Skin No skin breakdown. Normacephalic - Eyes Mild left visual visual field deficit - ENMT No abnormalities - Neck No abnormalities No cervical adenopathy - CVS RRR - Chest No abnormalities - Abd + bowel sounds - GI nondistended Deferred - No abnormalities - Ext No significant edema - MSK No Muscle Weakness - Neuro Left face, arm and leg numbness with incoordination and gait ataxia. - Psych No abnormalities ASSESSMENT: Pt. is a 78 yo Right-handed male.On 08/08/[address] [facility] with castañeda dden onset of left-side weakness.On 08/11/2019 he was [address] to [facility] with diagno sis CVA.His impairment category is Stroke 01 - Left Body (Right Brain) (01.1).Pre-morbidly, Pt. was independent/mod-I in Safety Awareness, Social Cognition, Transfers Control, Sphincter Control, and Se lf-Care; and he had good Balance, Endurance, Communication, and Locomotion.Currently, he has deficits of Locomotion, Balance, Safety Awareness, Social Cognition, Sphincter Control, Self-Care, and Endura nce.Pt. is now referred to [facility] for acute in-patient rehabilitation in [place] [facility] to maximize patient's functional independence in activities of daily living, strength, ROM, and mobility.- Rehab Goal Patient has realistic goal of being discharged at assistance level 3-modA to reside at Home with Fam carmel/Relatives. MDM/PLAN: - Physical Therapy Need for home safety evaluation - to improve, our physical therapists will perform initial evaluatio n of pt's status upon admission and devise an individualized program for Home Evaluation Need in caregiver upon discharge - to improve, our physical therapists will perform initial evaluati on of pt's status upon admission and devise an individualized program for Caregiver Training New precaution - to improve, our physical therapists will perform initial evaluation of pt's status upon admission and devise an individualized program for Patient precaution education Edema - to improve, our physical therapists will perform initial evaluation of pt's status upon admi ssion and devise an individualized program for Elevation Training, and Lymphedema Therapy Poor balance - to improve, our physical therapists will perform initial evaluation of pt's status up on admission and devise an individualized program for Balance Training Poor endurance - to improve, our physical therapists will perform initial evaluation of pt's status upon admission and devise an individualized program for Endurance Training Achieving independence - to improve, our physical therapists will perform initial evaluation of pt's status upon admission and devise an individualized program for Community Reintegration Activities - Occupational Therapy ADL deficits - to improve, our occupation therapists will perform initial evaluation of pt's status upon admission and devise an individualized program for Bathing, Bed mobility, Community Reintegratio n, Cooking, Dressing, Eating, Fine Motor Skills, Grooming, Homemaking, Kitchen Mobility, Laundry, Pat ient Education, Safety Awareness, Splinting - Positioning, Transfers(Toilet, Tub, Shower), and Wheel Chair Management Cognitive deficits - to improve, our occupation therapists will perform initial evaluation of pt's s tatus upon admission and devise an individualized program for Cognition - orientation Need for customer care coordinator - to improve, our occupation therapists will perform initial evaluation of pt's status upon admission and devise an individualized program for Caregiver Training - Other See attached MAR (Medication Administration Record) - Diet Type Continue Regular - Diet - Liquid Texture Continue Regular - Tube Feed Continue N/A - Bladder care per protocol - Weight Bearing Precaution WBAT left LE - Skin care per protocol - Diet - Solid Texture Continue Regular - Shower allowing shower for Dementia, TBI, Stroke, or others FUNCTIONAL STATUS: UPDATED AT WEEKLY TEAM CONFERENCE - Bladder Same accident frequency: 7-Ind - No accidents in the past 7 days - Bowel Same accident frequency: 7-Ind - No accidents in the past 7 days - Walking Same score based on distance walked: 0(N/A) Same score based on distance walked: 3(>=150ft) - Wheelchair Same score based on distance traveled: 0(N/A) FUNCTIONAL STATUS: - Self-Care A. Eating Ind B. Grooming sup C. Bathing modA D. Dressing - Upper Marlon E. Dressing - Lower modA F. Toileting Mralon - Sphincter Control G. Bladder control sup H. Bowel control sup - Transfers Control I. Bed/Chair/Wheelchair Marlon J. Toilet Marlon K. Tub/Shower modA - Locomotion L. Walk/Wheelchair (B) Marlon M. Stairs modA - Communication N. Comprehension (B) Marlon O. Expression (B) sup - Social Cognition P. Social Interaction Abimael Q. Problem Solving Abimael R. Memory Abimael - Endurance Good - Balance Fair - Safety Awareness Fair QI SCORES: - Self-Care A. Eating 03-Partial/moderate assistance B. Oral hygiene 03-Partial/moderate assistance C. Toileting hygiene 03-Partial/moderate assistance E. Shower/bathe self 03-Partial/moderate assistance F. Upper body dressing 04-Supervision or touching assistance G. Lower body dressing 03-Partial/moderate assistance H. Putting on/taking off footwear 03-Partial/moderate assistance - Mobility A. Roll left and right 04-Supervision or touching assistance B. Sit to lying 03-Partial/moderate assistance C. Lying to sitting on side of bed 03-Partial/moderate assistance D. Sit to stand 03-Partial/moderate assistance E. Chair/[id number] transfer 03-Partial/moderate assistance F. Toilet transfer 03-Partial/moderate assistance G. Car transfer 88-Not attempted due to medical condition or safety concerns I. Walk 10 feet 03-Partial/moderate assistance J. Walk 50 feet with two turns 88-Not attempted due to medical condition or safety concerns K. Walk 150 feet 03-Partial/moderate assistance L. Walking 10 feet on uneven surfaces 88-Not attempted due to medical condition or safety concerns M. 1 step (curb) 88-Not attempted due to medical condition or safety concerns N. 4 steps 88-Not attempted due to medical condition or safety concerns O. 12 steps 88-Not attempted due to medical condition or safety concerns P. Picking up object 04-Supervision or touching assistance R. Wheel 50 feet with two turns 88-Not attempted due to medical condition or safety concerns S. Wheel 150 feet 03-Partial/moderate assistance - Bladder and Bowel Bladder continence Bowel continence - Endurance Good - Balance Good - Safety Awareness Good CURRENT FUNC. DEFICITS: Self-Care and Mobility SIGNATURE PANEL: (CDT)
[2019-08-22] MEDS: [UNRECOGNIZED DRUG - OTHER] OPTH SCH (20:05)
[2019-08-22] MEDS: ramipriL 5 MG CAP PO SCH (20:05)
[2019-08-22] MEDS: ATORVASTATIN 40 MG TAB PO SCH (20:05)
[2019-08-22] MEDS: MAGNESIUM OXIDE 400 MG TAB PO SCH (20:06)
[2019-08-22] MEDS: ONDANSETRON 4 MG (ODT) TAB PO PRN (21:49)
[2019-08-22] MEDS: LORAZEPAM 0.5 MG TABLET PO PRN (23:55)
[2019-08-23] MEDS: carvediloL 3.125 MG TAB PO SCH ×2 (05:05→17:17)
[2019-08-23 06:01] LABS: Potassium 5.1 mmol/L (3.5-5.1)
[2019-08-23] MEDS: PANTOPRAZOLE 40MG TABLET PO SCH (06:27)
[2019-08-23] MEDS: INSULIN -REGULAR HUMAN 50 UNIT/0.5 ML ML SQ SCH ×4 (07:30→20:31)
[2019-08-23] MEDS: DULOXETINE 20 MG CAP PO SCH (08:39)
[2019-08-23] MEDS: FENOFIBRATE 160 MG TAB PO SCH (08:39)
[2019-08-23] MEDS: DOCUSATE NA 100 MG CAP PO SCH ×2 (08:39→20:30)
[2019-08-23] MEDS: APIXABAN 2.5 MG TABLET PO SCH ×2 (08:39→20:30)
[2019-08-23] MEDS: CLOPIDOGREL 75 MG TABLET PO SCH (08:39)
[2019-08-23] MEDS: FOLIC ACID 1 MG TABLET PO SCH (08:39)
[2019-08-23] MEDS: DORZOLAMIDE OPTH SCH ×2 (08:40→15:45)
[2019-08-23] MEDS: TIMOLOL OPTH SCH ×2 (08:40→15:45)
[2019-08-23] MEDS: CYANOCOBALAMIN 1,000 MCG TAB PO SCH (08:40)
[2019-08-23] MEDS: AMLODIPINE 2.5 MG TAB PO SCH (08:40)
[2019-08-23] MEDS: ASPIRIN EC 81 MG TAB PO SCH (08:40)
[2019-08-23] MEDS: VITAMIN D 5,000 UNIT CAP PO SCH (08:41)
--- NOTE | 2019-08-23 17:47 | R.PN ---
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 SUBJECTIVE: Pt denied any depression. Pt denied any Shortness of Breath. CBC with differential is essentially normal. Senior Analytical Chemist 1.63 and glucose 114 to 143, prealbumin 27.7. Increa se water intake to 6-8 glasses daily. Na decreased to 126 and Cl to 94. Will increase NaCl intake. Ambulated 450' with independence using a rolling walker. Up and down 15 steps with independence. Grooming done independently. Therapeutic exercises done well with supervision. VITAL SIGNS Temperature: 98.2 F SBP/DBP: 163/74 Pulse: 72 Resp: 16 MEDICATION ALLERGIES: No Known Drug Allergies (NKDA) ENVIRONMENTAL ALLERGIES: - Substance Allergies None Known - Other Allergies None Known NURSING: - Shower allowing shower - Bladder care per protocol - Skin care per protocol PRECAUTIONS: - Weight Bearing Precaution WBAT left LE ACTIVITIES OOB only with supervision THERAPIES: - Occupational Therapy Cognitive Retraining. Visual Perceptual Training. - Dietary and Nutrition Adequate Nutrition. Nutritional Education. Nutritional Supplements. - Speech Therapy Cognitive Training. Expressive Language Skills. Memory Strategies. Receptive Language Skills. Speech Intelligibility Training. PHYSICAL EXAM - Gen Alert and awake Lying in bed No apparent distress Oriented to: person, time, and place - Skin No skin breakdown. Normacephalic - Eyes Mild left visual visual field deficit - ENMT No abnormalities - Neck No abnormalities No cervical adenopathy - CVS RRR - Chest No abnormalities - Abd + bowel sounds - GI nondistended Deferred - No abnormalities - Ext No significant edema - MSK No Muscle Weakness - Neuro Left face, arm and leg numbness with incoordination and gait ataxia. - Psych No abnormalities ASSESSMENT: Pt. is a 78 yo Right-handed male.On 08/08/2019 Pt. presented to [facility] with castañeda dden onset of left-side weakness.On 08/11/2019 he was admitted to [facility] with diagno sis CVA.His impairment category is Stroke 01 - Left Body (Right Brain) (01.1).Pre-morbidly, Pt. was independent/mod-I in Safety Awareness, Social Cognition, Transfers Control, Sphincter Control, and Se lf-Care; and he had good Balance, Endurance, Communication, and Locomotion.Currently, he has deficits of Locomotion, Balance, Safety Awareness, Social Cognition, Sphincter Control, Self-Care, and Endura nce.Pt. is now referred to [facility] for acute in-patient rehabilitation in o [facility] to maximize patient's functional independence in activities of daily living, strength, ROM, and mobility.- Rehab Goal Patient has realistic goal of being discharged at assistance level 3-modA to reside at Home with Fam carmel/Relatives. MDM/PLAN: - Physical Therapy Need for home safety evaluation - to improve, our physical therapists will perform initial evaluatio n of pt's status upon admission and devise an individualized program for Home Evaluation Need in caregiver upon discharge - to improve, our physical therapists will perform initial evaluati on of pt's status upon admission and devise an individualized program for Caregiver Training New precaution - to improve, our physical therapists will perform initial evaluation of pt's status upon admission and devise an individualized program for Patient precaution education Edema - to improve, our physical therapists will perform initial evaluation of pt's status upon admi ssion and devise an individualized program for Elevation Training, and Lymphedema Therapy Poor balance - to improve, our physical therapists will perform initial evaluation of pt's status up on admission and devise an individualized program for Balance Training Poor endurance - to improve, our physical therapists will perform initial evaluation of pt's status upon admission and devise an individualized program for Endurance Training Achieving independence - to improve, our physical therapists will perform initial evaluation of pt's status upon admission and devise an individualized program for Community Reintegration Activities - Occupational Therapy ADL deficits - to improve, our occupation therapists will perform initial evaluation of pt's status upon admission and devise an individualized program for Bathing, Bed mobility, Community Reintegratio n, Cooking, Dressing, Eating, Fine Motor Skills, Grooming, Homemaking, Kitchen Mobility, Laundry, Pat ient Education, Safety Awareness, Splinting - Positioning, Transfers(Toilet, Tub, Shower), and Wheel Chair Management Cognitive deficits - to improve, our occupation therapists will perform initial evaluation of pt's s tatus upon admission and devise an individualized program for Cognition - orientation Need for early breastfeeding care specialist - to improve, our occupation therapists will perform initial evaluation of pt's status upon admission and devise an individualized program for Caregiver Training - Other See attached MAR (Medication Administration Record) - Diet Type Continue Regular - Diet - Liquid Texture Continue Regular - Tube Feed Continue N/A - Bladder care per protocol - Weight Bearing Precaution WBAT left LE - Skin care per protocol - Diet - Solid Texture Continue Regular - Shower allowing shower for Dementia, TBI, Stroke, or others FUNCTIONAL STATUS: UPDATED AT WEEKLY TEAM CONFERENCE - Bladder Same accident frequency: 7-Ind - No accidents in the past 7 days - Bowel Same accident frequency: 7-Ind - No accidents in the past 7 days - Walking Same score based on distance walked: 0(N/A) Same score based on distance walked: 3(>=150ft) - Wheelchair Same score based on distance traveled: 0(N/A) FUNCTIONAL STATUS: - Self-Care A. Eating Ind B. Grooming sup C. Bathing modA D. Dressing - Upper Marlon E. Dressing - Lower modA F. Toileting Marlon - Sphincter Control G. Bladder control sup H. Bowel control sup - Transfers Control I. Bed/Chair/Wheelchair Marlon J. Toilet Marlon K. Tub/Shower modA - Locomotion L. Walk/Wheelchair (B) Marlon M. Stairs modA - Communication N. Comprehension (B) Marlon O. Expression (B) sup - Social Cognition P. Social Interaction Aibmael Q. Problem Solving Abimael R. Memory Abimael - Endurance Good - Balance Fair - Safety Awareness Fair QI SCORES: - Self-Care A. Eating 03-Partial/moderate assistance B. Oral hygiene 03-Partial/moderate assistance C. Toileting hygiene 03-Partial/moderate assistance E. Shower/bathe self 03-Partial/moderate assistance F. Upper body dressing 04-Supervision or touching assistance G. Lower body dressing 03-Partial/moderate assistance H. Putting on/taking off footwear 03-Partial/moderate assistance - Mobility A. Roll left and right 04-Supervision or touching assistance B. Sit to lying 03-Partial/moderate assistance C. Lying to sitting on side of bed 03-Partial/moderate assistance D. Sit to stand 03-Partial/moderate assistance E. Chair/[id number] transfer 03-Partial/moderate assistance F. Toilet transfer 03-Partial/moderate assistance G. Car transfer 88-Not attempted due to medical condition or safety concerns I. Walk 10 feet 03-Partial/moderate assistance J. Walk 50 feet with two turns 88-Not attempted due to medical condition or safety concerns K. Walk 150 feet 03-Partial/moderate assistance L. Walking 10 feet on uneven surfaces 88-Not attempted due to medical condition or safety concerns M. 1 step (curb) 88-Not attempted due to medical condition or safety concerns N. 4 steps 88-Not attempted due to medical condition or safety concerns O. 12 steps 88-Not attempted due to medical condition or safety concerns P. Picking up object 04-Supervision or touching assistance R. Wheel 50 feet with two turns 88-Not attempted due to medical condition or safety concerns S. Wheel 150 feet 03-Partial/moderate assistance - Bladder and Bowel Bladder continence Bowel continence - Endurance Good - Balance Good - Safety Awareness Good CURRENT FUNC. DEFICITS: Self-Care and Mobility SIGNATURE PANEL: (CDT)
[2019-08-23] MEDS: MAGNESIUM OXIDE 400 MG TAB PO SCH (20:30)
[2019-08-23] MEDS: ATORVASTATIN 40 MG TAB PO SCH (20:30)
[2019-08-23] MEDS: [UNRECOGNIZED DRUG - OTHER] OPTH SCH (20:30)
[2019-08-23] MEDS: ramipriL 5 MG CAP PO SCH (20:30)
[2019-08-23] MEDS: cloNIDine HCL 0.1 MG TAB PO PRN (20:53)
[2019-08-24] MEDS: LORAZEPAM 0.5 MG TABLET PO PRN ×2 (01:31→18:30)
[2019-08-24] MEDS: carvediloL 3.125 MG TAB PO SCH ×2 (05:13→17:38)
[2019-08-24] MEDS: PANTOPRAZOLE 40MG TABLET PO SCH (07:21)
[2019-08-24] MEDS: INSULIN -REGULAR HUMAN 50 UNIT/0.5 ML ML SQ SCH ×4 (07:29→21:00)
[2019-08-24] MEDS: AMLODIPINE 2.5 MG TAB PO SCH (07:42)
[2019-08-24] MEDS: ASPIRIN EC 81 MG TAB PO SCH (07:42)
[2019-08-24] MEDS: FENOFIBRATE 160 MG TAB PO SCH (07:43)
[2019-08-24] MEDS: DOCUSATE NA 100 MG CAP PO SCH ×2 (07:43→18:30)
[2019-08-24] MEDS: VITAMIN D 5,000 UNIT CAP PO SCH (07:43)
[2019-08-24] MEDS: CLOPIDOGREL 75 MG TABLET PO SCH (07:43)
[2019-08-24] MEDS: CYANOCOBALAMIN 1,000 MCG TAB PO SCH (07:43)
[2019-08-24] MEDS: APIXABAN 2.5 MG TABLET PO SCH ×2 (07:43→18:30)
[2019-08-24] MEDS: DULOXETINE 20 MG CAP PO SCH (07:43)
[2019-08-24] MEDS: TIMOLOL OPTH SCH ×2 (07:53→17:38)
[2019-08-24] MEDS: DORZOLAMIDE OPTH SCH ×2 (07:53→17:38)
[2019-08-24] MEDS: FOLIC ACID 1 MG TABLET PO SCH (07:57)
[2019-08-24] MEDS: ONDANSETRON 4 MG (ODT) TAB PO PRN (11:06)
[2019-08-24] MEDS: BISOPROLOL/HCTZ 2.5/6.25MG TAB PO SCH (11:10)
--- NOTE | 2019-08-24 12:52 | CON ---
Patient's blood pressure has been variable and of some concern to him and his family as he has had p. r.n. use of his blood pressure at home medication galvan. However, during his hospital stay, he was pl aced on various hypertensive medications and apparently, there has been some fluctuation between hypo tensive readings and hypertensive readings and therefore, an attempt to stabilize his doses, the Ziac was held as he has been placed on beta-emre, calcium channel blockers by Cardiology when seen on the floor. He would be continued to monitor therapy as progressed depending on his response further as far as medication may be necessitated to control his blood pressure. We will continue to monitor. HR/MODL Voice ID: [id number] Report ID: [id number]
[2019-08-24] MEDS: cloNIDine HCL 0.1 MG TAB PO PRN (17:44)
[2019-08-24] MEDS: ramipriL 5 MG CAP PO SCH (18:30)
[2019-08-24] MEDS: ATORVASTATIN 40 MG TAB PO SCH (18:32)
[2019-08-24] MEDS: MAGNESIUM OXIDE 400 MG TAB PO SCH (18:32)
[2019-08-24] MEDS ORDERED: cloNIDine HCL 0.1 MG TAB PO ONE (19:45)
[2019-08-24] MEDS: [UNRECOGNIZED DRUG - OTHER] OPTH SCH (23:01)
[2019-08-25] MEDS: carvediloL 3.125 MG TAB PO SCH ×2 (05:05→16:44)
[2019-08-25 06:14] LABS: Potassium 4.8 mmol/L (3.5-5.1)
[2019-08-25] MEDS: PANTOPRAZOLE 40MG TABLET PO SCH (06:24)
[2019-08-25 06:51] LABS: Absolute Lymphocytes (CBC) 1.2 K/uL (0.7-4.9); Basophils % 0.7 % (0-1.3); Hematocrit 39.8 % (39.6-49.0); Lymphocytes % 20.4 % (15.3-44.8); MPV 7.5 fL (7.6-11.3); RBC Red Blood Cell Count 4.31 M/uL (4.33-5.43)
[2019-08-25 07:02] LABS: Albumin 3.4 g/dL (3.4-5.0); Magnesium 2.3 mg/dL (1.8-2.4); Prealbumin 25.6 mg/dL (20-40)
[2019-08-25] MEDS: INSULIN -REGULAR HUMAN 50 UNIT/0.5 ML ML SQ SCH ×4 (07:30→20:09)
[2019-08-25] MEDS: DOCUSATE NA 100 MG CAP PO SCH ×2 (07:44→20:08)
[2019-08-25] MEDS: AMLODIPINE 2.5 MG TAB PO SCH (07:44)
[2019-08-25] MEDS: APIXABAN 2.5 MG TABLET PO SCH ×2 (07:45→20:08)
[2019-08-25] MEDS: VITAMIN D 5,000 UNIT CAP PO SCH (07:45)
[2019-08-25] MEDS: TIMOLOL OPTH SCH ×2 (07:45→15:52)
[2019-08-25] MEDS: ASPIRIN EC 81 MG TAB PO SCH (07:45)
[2019-08-25] MEDS: CYANOCOBALAMIN 1,000 MCG TAB PO SCH (07:45)
[2019-08-25] MEDS: CLOPIDOGREL 75 MG TABLET PO SCH (07:45)
[2019-08-25] MEDS: DORZOLAMIDE OPTH SCH ×2 (07:45→15:52)
[2019-08-25] MEDS: FOLIC ACID 1 MG TABLET PO SCH (07:45)
[2019-08-25] MEDS: DULOXETINE 20 MG CAP PO SCH (07:45)
[2019-08-25] MEDS: FENOFIBRATE 160 MG TAB PO SCH (07:45)
[2019-08-25] MEDS: cloNIDine HCL 0.1 MG TAB PO PRN ×2 (09:22→20:12)
[2019-08-25] MEDS: LORAZEPAM 0.5 MG TABLET PO PRN ×2 (10:07→20:12)
--- NOTE | 2019-08-25 10:43 | R.PN ---
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 SUBJECTIVE: Pt denied any depression. Pt denied any Shortness of Breath. CBC with differential is essentially normal. Car Wiper 1.63 and glucose 126 to 172, prealbumin 27.7. Increa se water intake to 6-8 glasses daily. Na decreased to 126 and Cl to 94. Will increase NaCl intake. Ambulated 450' with independence using a rolling walker. Up and down 15 steps with independence. Grooming done independently. Therapeutic exercises done well with supervision. VITAL SIGNS Temperature: 98.2 F SBP/DBP: 137 to 193/70 to 95 Pulse: 69 to 73 Resp: 15 MEDICATION ALLERGIES: No Known Drug Allergies (NKDA) ENVIRONMENTAL ALLERGIES: - Substance Allergies None Known - Other Allergies None Known NURSING: - Shower allowing shower - Bladder care per protocol - Skin care per protocol PRECAUTIONS: - Weight Bearing Precaution WBAT left LE ACTIVITIES OOB only with supervision THERAPIES: - Occupational Therapy Cognitive Retraining. Visual Perceptual Training. - Dietary and Nutrition Adequate Nutrition. Nutritional Education. Nutritional Supplements. - Speech Therapy Cognitive Training. Expressive Language Skills. Memory Strategies. Receptive Language Skills. Speech Intelligibility Training. PHYSICAL EXAM - Gen Alert and awake Lying in bed No apparent distress Oriented to: person, time, and place - Skin No skin breakdown. Normacephalic - Eyes Mild left visual visual field deficit - ENMT No abnormalities - Neck No abnormalities No cervical adenopathy - CVS RRR - Chest No abnormalities - Abd + bowel sounds - GI nondistended Deferred - No abnormalities - Ext No significant edema - MSK No Muscle Weakness - Neuro Left face, arm and leg numbness with incoordination and gait ataxia. - Psych No abnormalities ASSESSMENT: Pt. is a 78 yo Right-handed male.On 08/08/2019 Pt. presented to [facility] with castañeda dden onset of left-side weakness.On 08/11/2019 he was admitted to [facility] with diagno sis CVA.His impairment category is Stroke 01 - Left Body (Right Brain) (01.1).Pre-morbidly, Pt. was independent/mod-I in Safety Awareness, Social Cognition, Transfers Control, Sphincter Control, and Se lf-Care; and he had good Balance, Endurance, Communication, and Locomotion.Currently, he has deficits of Locomotion, Balance, Safety Awareness, Social Cognition, Sphincter Control, Self-Care, and Endura nce.Pt. is now referred to [facility] for acute in-patient rehabilitation in o spooner health to maximize patient's functional independence in activities of daily living, strength, ROM, and mobility.- Rehab Goal Patient has realistic goal of being discharged at assistance level 3-modA to reside at Home with Fam carmel/Relatives. MDM/PLAN: - Physical Therapy Need for home safety evaluation - to improve, our physical therapists will perform initial evaluatio n of pt's status upon admission and devise an individualized program for Home Evaluation Need in caregiver upon discharge - to improve, our physical therapists will perform initial evaluati on of pt's status upon admission and devise an individualized program for Caregiver Training New precaution - to improve, our physical therapists will perform initial evaluation of pt's status upon admission and devise an individualized program for Patient precaution education Edema - to improve, our physical therapists will perform initial evaluation of pt's status upon admi ssion and devise an individualized program for Elevation Training, and Lymphedema Therapy Poor balance - to improve, our physical therapists will perform initial evaluation of pt's status up on admission and devise an individualized program for Balance Training Poor endurance - to improve, our physical therapists will perform initial evaluation of pt's status upon admission and devise an individualized program for Endurance Training Achieving independence - to improve, our physical therapists will perform initial evaluation of pt's status upon admission and devise an individualized program for Community Reintegration Activities - Occupational Therapy ADL deficits - to improve, our occupation therapists will perform initial evaluation of pt's status upon admission and devise an individualized program for Bathing, Bed mobility, Community Reintegratio n, Cooking, Dressing, Eating, Fine Motor Skills, Grooming, Homemaking, Kitchen Mobility, Laundry, Pat ient Education, Safety Awareness, Splinting - Positioning, Transfers(Toilet, Tub, Shower), and Wheel Chair Management Cognitive deficits - to improve, our occupation therapists will perform initial evaluation of pt's s tatus upon admission and devise an individualized program for Cognition - orientation Need for health care sanitary technician - to improve, our occupation therapists will perform initial evaluation of pt's status upon admission and devise an individualized program for Caregiver Training - Other See attached MAR (Medication Administration Record) - Diet Type Continue Regular - Diet - Liquid Texture Continue Regular - Tube Feed Continue N/A - Bladder care per protocol - Weight Bearing Precaution WBAT left LE - Skin care per protocol - Diet - Solid Texture Continue Regular - Shower allowing shower for Dementia, TBI, Stroke, or others FUNCTIONAL STATUS: UPDATED AT WEEKLY TEAM CONFERENCE - Bladder Same accident frequency: 7-Ind - No accidents in the past 7 days - Bowel Same accident frequency: 7-Ind - No accidents in the past 7 days - Walking Same score based on distance walked: 0(N/A) Same score based on distance walked: 3(>=150ft) - Wheelchair Same score based on distance traveled: 0(N/A) FUNCTIONAL STATUS: - Self-Care A. Eating Ind B. Grooming sup C. Bathing modA D. Dressing - Upper Marlon E. Dressing - Lower modA F. Toileting Marlon - Sphincter Control G. Bladder control sup H. Bowel control sup - Transfers Control I. Bed/Chair/Wheelchair Marlon J. Toilet Marlon K. Tub/Shower modA - Locomotion L. Walk/Wheelchair (B) Marlon M. Stairs modA - Communication N. Comprehension (B) Marlon O. Expression (B) sup - Social Cognition P. Social Interaction Abimael Q. Problem Solving Abimael R. Memory Abimael - Endurance Good - Balance Fair - Safety Awareness Fair QI SCORES: - Self-Care A. Eating 03-Partial/moderate assistance B. Oral hygiene 03-Partial/moderate assistance C. Toileting hygiene 03-Partial/moderate assistance E. Shower/bathe self 03-Partial/moderate assistance F. Upper body dressing 04-Supervision or touching assistance G. Lower body dressing 03-Partial/moderate assistance H. Putting on/taking off footwear 03-Partial/moderate assistance - Mobility A. Roll left and right 04-Supervision or touching assistance B. Sit to lying 03-Partial/moderate assistance C. Lying to sitting on side of bed 03-Partial/moderate assistance D. Sit to stand 03-Partial/moderate assistance E. Chair/ihs-xs-[id number] transfer 03-Partial/moderate assistance F. Toilet transfer 03-Partial/moderate assistance G. Car transfer 88-Not attempted due to medical condition or safety concerns I. Walk 10 feet 03-Partial/moderate assistance J. Walk 50 feet with two turns 88-Not attempted due to medical condition or safety concerns K. Walk 150 feet 03-Partial/moderate assistance L. Walking 10 feet on uneven surfaces 88-Not attempted due to medical condition or safety concerns M. 1 step (curb) 88-Not attempted due to medical condition or safety concerns N. 4 steps 88-Not attempted due to medical condition or safety concerns O. 12 steps 88-Not attempted due to medical condition or safety concerns P. Picking up object 04-Supervision or touching assistance R. Wheel 50 feet with two turns 88-Not attempted due to medical condition or safety concerns S. Wheel 150 feet 03-Partial/moderate assistance - Bladder and Bowel Bladder continence Bowel continence - Endurance Good - Balance Good - Safety Awareness Good CURRENT FUNC. DEFICITS: Self-Care and Mobility SIGNATURE PANEL: (CDT)
[2019-08-25] MEDS: ATORVASTATIN 40 MG TAB PO SCH (20:08)
[2019-08-25] MEDS: ramipriL 5 MG CAP PO SCH (20:08)
[2019-08-25] MEDS: MAGNESIUM OXIDE 400 MG TAB PO SCH (20:08)
[2019-08-25] MEDS: [UNRECOGNIZED DRUG - OTHER] OPTH SCH (20:10)
[2019-08-26] MEDS: carvediloL 3.125 MG TAB PO SCH (05:17)
[2019-08-26] MEDS: PANTOPRAZOLE 40MG TABLET PO SCH (06:40)
[2019-08-26] MEDS: cloNIDine HCL 0.1 MG TAB PO PRN ×2 (06:42→10:11)
[2019-08-26] MEDS: VITAMIN D 5,000 UNIT CAP PO SCH (07:19)
[2019-08-26] MEDS: CLOPIDOGREL 75 MG TABLET PO SCH (07:19)
[2019-08-26] MEDS: FENOFIBRATE 160 MG TAB PO SCH (07:19)
[2019-08-26] MEDS: ASPIRIN EC 81 MG TAB PO SCH (07:19)
[2019-08-26] MEDS: DULOXETINE 20 MG CAP PO SCH (07:20)
[2019-08-26] MEDS: DOCUSATE NA 100 MG CAP PO SCH (07:20)
[2019-08-26] MEDS: CYANOCOBALAMIN 1,000 MCG TAB PO SCH (07:20)
[2019-08-26] MEDS: INSULIN -REGULAR HUMAN 50 UNIT/0.5 ML ML SQ SCH ×2 (07:20→11:30)
[2019-08-26] MEDS: APIXABAN 2.5 MG TABLET PO SCH (07:20)
[2019-08-26] MEDS: FOLIC ACID 1 MG TABLET PO SCH (07:20)
[2019-08-26] MEDS: AMLODIPINE 2.5 MG TAB PO SCH (07:21)
[2019-08-26] MEDS: DORZOLAMIDE OPTH SCH (07:22)
[2019-08-26] MEDS: TIMOLOL OPTH SCH (07:22)
[2019-08-26 08:10] VITALS: TEMP 97.9
--- NOTE | 2019-08-26 09:50 | P.RH.PN ---
Estimated Length of Stay: 12 Expected Discharge Date: 08/26/19 Discharge Disposition Plan: Home Family Support: Yes Group Home Goal: Mobility, Transfers, Self Care Vital Signs: Last Vital Signs Temp 97.9 F 08/26/19 07:00 Pulse 69 08/26/19 08:00 Resp 14 08/26/19 07:00 BP 187/90 H 08/26/19 08:00 Pulse Ox 98 08/26/19 07:00 Laboratory: Laboratory Last Values WBC 5.7 K/uL (4.3-10.9) 08/25/19 06:10 RBC 4.31 M/uL (4.33-5.43) L 08/25/19 06:10 Hgb 13.7 g/dL (13.6-17.9) 08/25/19 06:10 Hct 39.8 % (39.6-49.0) 08/25/19 06:10 MCV 92.4 fL (80-100) D 08/25/19 06:10 MCH 31.8 pg (27.0-35.0) 08/25/19 06:10 MCHC 34.4 g/dL (32.0-36.0) 08/25/19 06:10 RDW 12.7 % (12.1-15.2) 08/25/19 06:10 Plt Count 337 K/uL (152-406) 08/25/19 06:10 MPV 7.5 fL (7.6-11.3) L 08/25/19 06:10 Neutrophils % 65.2 % (41.7-73.7) 08/25/19 06:10 Lymphocytes % 20.4 % (15.3-44.8) 08/25/19 06:10 Monocytes % 12.3 % (3.3-12.3) 08/25/19 06:10 Eosinophils % 1.4 % (0-4.4) 08/25/19 06:10 Basophils % 0.7 % (0-1.3) 08/25/19 06:10 Absolute Neutrophils 3.7 K/uL (1.8-8.0) 08/25/19 06:10 Absolute Lymphocytes 1.2 K/uL (0.7-4.9) 08/25/19 06:10 Absolute Monocytes 0.7 K/uL (0.1-1.3) 08/25/19 06:10 Absolute Eosinophils 0.1 K/uL (0-0.5) 08/25/19 06:10 Absolute Basophils 0.0 K/uL (0-0.5) 08/25/19 06:10 Morphology Comment Not seen (NOT SEEN) 08/16/19 05:35 Sodium 131 mmol/L (136-145) L 08/25/19 05:45 Potassium 4.8 mmol/L (3.5-5.1) 08/25/19 05:45 Chloride 101 mmol/L (98-107) 08/25/19 05:45 Carbon Dioxide 25 mmol/L (21-32) 08/25/19 05:45 BUN 25 mg/dL (7-18) H 08/25/19 05:45 Creatinine 1.33 mg/dL (0.55-1.3) H 08/25/19 05:45 Estimated GFR 52 mL/min (=/>90) L 08/25/19 05:45 Glucose 110 mg/dL (74-106) H 08/25/19 05:45 POC Glucose 108 mg/dL (65-120) 08/26/19 07:16 Calcium 8.3 mg/dL (8.5-10.1) L 08/25/19 05:45 Magnesium 2.3 mg/dL (1.8-2.4) 08/25/19 06:10 Albumin 3.4 g/dL (3.4-5.0) 08/25/19 06:10 Prealbumin 25.6 mg/dL (20-40) 08/25/19 06:10 Urine Color Yellow 08/15/19 16:00 Urine Appearance Clear 08/15/19 16:00 Urine pH 6.0 (5.0-7.0) 08/15/19 16:00 Ur Specific [place] 1.010 (1.005-1.030) 08/15/19 16:00 Glucose (UA)(Auto) Negative (NEG) 08/15/19 16:00 Urine Ketones Negative (NEG) 08/15/19 16:00 Urine Blood Negative (NEG) 08/15/19 16:00 Urine Nitrite Negative (NEG) 08/15/19 16:00 Urine Bilirubin Negative (NEG) 08/15/19 16:00 Urine Urobilinogen 0.2 mg/dL (0.2-1.0) 08/15/19 16:00 Ur Leukocyte Esterase Negative (NEG) 08/15/19 16:00 Urine RBC <5 /HPF (NONE SEEN) 08/15/19 16:00 Urine WBC None seen /HPF (<5) 08/15/19 16:00 Ur Squamous Epith Cells <5 /HPF (NONE SEEN) 08/15/19 16:00 Urine Bacteria None seen /HPF (NONE SEEN) 08/15/19 16:00 Urine Culture Reflexed Not needed 08/15/19 16:00 Urine Total Protein Negative (NEG) 08/15/19 16:00 Weight: 141 lb 11.2 oz Wound Present: No Closed Surgical Incision Present: No Negative Pressure Wound Therapy Present: No Physician Update: His labs are reviewed and are stable. He continued to have very elevated blood pressures followed by normal pressures. He should be worked up for a pheochromocytoma as a out patient by Dr. Sheffield. He will have home health via [facility]. 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 Please see the Rehabilitation Signature page for all necessary signatures.
[2019-08-26 12:11] VITALS: BP 170/70
--- NOTE | 2019-08-31 10:11 | R.DS ---
FACILITY [facility] MR# [id number] NAME MAYTE KHALIL ADDRESS [address] [place] [address] [address] [id number] PHONE DATE OF 1940 AGE 78 SSN# [id number] GENDER Male DEXTERITY Right-handed MARITAL STATUS RACE ENCOUNTER PHYSICIAN Dr. Waqar Azul M.D. REFERRING DOCTOR REFERRING FACILITY [facility] DISCHARGE DIAGNOSIS: - Stroke 01 - Left Body (Right Brain) (01.1) CVA. DATE OF ADMISSION 08/15/2019 11:28 (CDT) MEDICATION ALLERGIES: No Known Drug Allergies (NKDA) ENVIRONMENTAL ALLERGIES: - Substance Allergies None Known - Other Allergies None Known DISCHARGE MEDICATIONS: Other- ContinueSee attached MAR (Medication Administration Record). NURSING: - Shower allowing shower - Bladder care per protocol - Skin care per protocol PRECAUTIONS: - Weight Bearing Precaution WBAT left LE ACTIVITIES OOB only with supervision THERAPIES: - Occupational Therapy Cognitive Retraining Visual Perceptual Training - Dietary and Nutrition Adequate Nutrition Nutritional Education Nutritional Supplements - Speech Therapy Cognitive Training Expressive Language Skills Memory Strategies Receptive Language Skills Speech Intelligibility Training HISTORY OF PRESENT ILLNESS: Pt. is a 78 yo Right-handed male.On 08/08/2019 Pt. presented to [facility] with castañeda dden onset of left-side weakness.On 08/11/2019 he was admitted to [facility] with diagno sis CVA.His impairment category is Stroke 01 - Left Body (Right Brain) (01.1).Pre-morbidly, Pt. was independent/mod-I in Safety Awareness, Social Cognition, Transfers Control, Sphincter Control, and Se lf-Care; and he had good Balance, Endurance, Communication, and Locomotion.Currently, he has deficits of Locomotion, Balance, Safety Awareness, Social Cognition, Sphincter Control, Self-Care, and Endura nce.Pt. is now referred to [facility] for acute in-patient rehabilitation in o rder to maximize patient's functional independence in activities of daily living, strength, ROM, and mobility.- Rehab Goal Patient has realistic goal of being discharged at assistance level 3-modA to reside at Home with Fam carmel/Relatives. Mr. Mayte Khalil is a 78 year old man that lives at home independently with his . They have a two- story home with the restroom being upstairs. He was very independent before his stroke. He has a history of hypertension, hyperlipidemia and presented to the emergency department with a complaint of sudden onset of left-sided numbness and subjective weakness in the left hand. His systolic blood pressure in the ED was elevated to 220. Patient took 2 baby aspirin before coming to the ED. EKG in the ED showed sinus rhythm. CT head showed no acute disease. Patient was given IV labetalol and IV hydralazine to bring down his blood pressure. Patient was admitted to [facility] not followed up for procedure at this time. [facility] Inpatient rehabilitation and is hemodynamically stable with relatively stable labs. He is now medically stable but in need of 24 hour nursing, doctor supervision and oversight while reasonably expected to participate in 3 hours of therapy a day/15 hours per week and receive care with intensive interdisciplinary approach. COVID-19 screening performed; spoke with patient via phone. Patient denies new onset of fever, cough, difficulty breathing, sore throat, body aches and non-allergy nasal congestion in the past 24 hours. Patient denies travel outside of [place] in the past 14 days. Patient denies any contact with someone who has a confirmed diagnosis of or is under investigation for COVID-19 in the past 14 days.HOSPITAL COURSE: DIET - LIQUID TEXTURE: On 08/15/2019 Pt was upgraded to Regular Diet - Liquid Texture. DIET - SOLID TEXTURE: On 08/15/2019 Pt was upgraded to Regular Diet - Solid Texture. DIET TYPE: On 08/15/2019 Pt was upgraded to Regular Diet Type. TUBE FEED: On 08/15/2019 Pt was changed to N/A Tube Feed. WEIGHT BEARING PRECAUTION: On 08/15/2019 the following precautions were added for the patient: Weight Bearing Precaution - WBAT left LE. On 08/15/2019 the following precautions were added for the patient: Weight Bearing Precaution - WBAT left LE. On 08/16/2019 the following precautions were removed for the patient: Weight Bearing Precaution - WB AT left LE. On 08/17/2019 the following precautions were added for the patient: Weight Bearing Precaution - WBAT left LE. DISCHARGE PHYSICAL EXAM - Gen Alert and awake Lying in bed No apparent distress Oriented to: person, time, and place - Skin No skin breakdown. Normacephalic - Eyes Mild left visual visual field deficit - ENMT No abnormalities - Neck No abnormalities No cervical adenopathy - CVS RRR - Chest No abnormalities - Abd + bowel sounds - GI nondistended Deferred - No abnormalities - Ext No significant edema - MSK No Muscle Weakness - Neuro Left face, arm and leg numbness with incoordination and gait ataxia. - Psych No abnormalities FUNCTIONAL STATUS: - Self-Care A. Eating 7-Ind B. Grooming 6-Abimael C. Bathing 6-Abimael D. Dressing - Upper 6-Abimael E. Dressing - Lower 6-Abimael F. Toileting 6-Abimael - Sphincter Control G. Bladder control 6-Abimael H. Bowel control 6-Abimael - Transfers Control I. Bed/Chair/Wheelchair 6-Abimael J. Toilet 6-Abimael K. Tub/Shower 6-Abimael - Locomotion L. Walk/Wheelchair (B) 6-Abimael M. Stairs 6-Abimael - Communication N. Comprehension (B) 6-Abimael O. Expression (B) 6-Abimael - Social Cognition P. Social Interaction 6-Abimael Q. Problem Solving 6-Abimael R. Memory 6-Abimael - Endurance Good - Balance Good - Safety Awareness Good QI SCORES: - Self-Care A. Eating 03-Partial/moderate assistance B. Oral hygiene 03-Partial/moderate assistance C. Toileting hygiene 03-Partial/moderate assistance E. Shower/bathe self 03-Partial/moderate assistance F. Upper body dressing 04-Supervision or touching assistance G. Lower body dressing 03-Partial/moderate assistance H. Putting on/taking off footwear 03-Partial/moderate assistance - Mobility A. Roll left and right 04-Supervision or touching assistance B. Sit to lying 03-Partial/moderate assistance C. Lying to sitting on side of bed 03-Partial/moderate assistance D. Sit to stand 03-Partial/moderate assistance E. Chair/juw-zt-yppat transfer 03-Partial/moderate assistance F. Toilet transfer 03-Partial/moderate assistance G. Car transfer 88-Not attempted due to medical condition or safety concerns I. Walk 10 feet 03-Partial/moderate assistance J. Walk 50 feet with two turns 88-Not attempted due to medical condition or safety concerns K. Walk 150 feet 03-Partial/moderate assistance L. Walking 10 feet on uneven surfaces 88-Not attempted due to medical condition or safety concerns M. 1 step (curb) 88-Not attempted due to medical condition or safety concerns N. 4 steps 88-Not attempted due to medical condition or safety concerns O. 12 steps 88-Not attempted due to medical condition or safety concerns P. Picking up object 04-Supervision or touching assistance R. Wheel 50 feet with two turns 88-Not attempted due to medical condition or safety concerns S. Wheel 150 feet 03-Partial/moderate assistance - Bladder and Bowel Bladder continence Bowel continence - Endurance Good - Balance Good - Safety Awareness Good DISCHARGE INSTRUCTIONS: - N/A Aspirin 81 mg and Plavix 75 mg daily. DISCHARGE PLAN, FOLLOW UP CARE PROVISIONS: - Estimated Length of Stay (days) 17. - Consensus on plan Discharge plan has been discussed with primary caregiver. Patient/Family is in agreement with the johana n. Primary caregiver is in agreement with the plan. - Patient/Family Goals Return home with assistance. - Planned Living Setting Upon Discharge Home, to live with Family/Relatives. Transitional Living. SIGNATURE PANEL: (CDT)
== END 2019-08-26 16:05 | disposition home or self-care (01) | DRG 57 ==
LOC: 5TH 08-15 13:28
PROVIDERS: ADMIT Psychiatry & Neurology Neurology with Special Qualifications in Child Neurology; ATTEND Psychiatry & Neurology Neurology with Special Qualifications in Child Neurology
DX: I69.354 Hemiplegia and hemiparesis following cerebral infarction affecting left non-dominant side (principal); I10 Essential (primary) hypertension; E78.5 Hyperlipidemia, unspecified; Z11.59 Encounter for screening for other viral diseases
CPT/HCPCS: 36415; 80048; 81001; 82040; 82947; 83735; 84134; 85025; 87086; 87088; 97110; 97112; 97116; 97161; 97530; J1650

== ENCOUNTER 2019-09-01 13:25 | Inpatient (IN) | payer OTHER ==
[2019-09-01] MEDS ORDERED: D5W 1,000 ML IV SCH (14:30)
[2019-09-01 14:55] VITALS: O2SAT 98; BMI 23.6
[2019-09-01] MEDS: ONDANSETRON 4 MG/2 ML VIAL IV PRN (16:41)
[2019-09-01] MEDS: AMLODIPINE 2.5 MG TAB PO SCH (16:50)
[2019-09-01 20:31] LABS: Urine Appearance CLEAR; Urine Bilirubin NEGATIVE (NEG); Urine Blood NEGATIVE (NEG); Urine Color YELLOW; Urine Glucose TRACE (NEG); Urine Protein NEGATIVE (NEG); Urine Specific Gravity <=1.005 (1.005-1.030)
[2019-09-01 20:32] LABS: Urine Microscopic Reflex NO UMIC
[2019-09-01] MEDS: carvediloL 3.125 MG TAB PO SCH (21:01)
[2019-09-01] MEDS: LORAZEPAM 1 MG TABLET PO SCH (21:01)
[2019-09-01 22:14] LABS: Absolute Lymphocytes (CBC) 0.9 K/uL (0.7-4.9); Basophils % 0.3 % (0-1.3); Hematocrit 39.1 % (39.6-49.0); Lymphocytes % 14.3 % (15.3-44.8); RBC Red Blood Cell Count 4.27 M/uL (4.33-5.43)
[2019-09-01] MEDS: cloNIDine HCL 0.1 MG TAB PO PRN (22:16)
[2019-09-01] MEDS: D5W 1,000 ML IV SCH (22:16)
[2019-09-01 22:24] LABS: Potassium 3.3 mmol/L (3.5-5.1)
[2019-09-01 23:58] LABS: Blood Morphology Comment NOT SEEN (NOT SEEN); Platelet Estimate ADEQ
[2019-09-02] MEDS: cloNIDine HCL 0.1 MG TAB PO PRN (05:38)
[2019-09-02] MEDS: ONDANSETRON 4 MG/2 ML VIAL IV PRN (05:38)
[2019-09-02 08:08] LABS: Absolute Lymphocytes (CBC) 0.8 K/uL (0.7-4.9); Basophils % 0.4 % (0-1.3); Hematocrit 38.5 % (39.6-49.0); RBC Red Blood Cell Count 4.18 M/uL (4.33-5.43)
[2019-09-02 08:13] LABS: Potassium 3.7 mmol/L (3.5-5.1)
[2019-09-02] MEDS: D5W 1,000 ML IV SCH (08:47)
[2019-09-02] MEDS: carvediloL 3.125 MG TAB PO SCH ×2 (08:49→21:41)
[2019-09-02] MEDS: AMLODIPINE 2.5 MG TAB PO SCH (08:50)
[2019-09-02] MEDS: ramipriL 5 MG CAP PO SCH (13:05)
[2019-09-02] MEDS ORDERED: D5W 1,000 ML IV SCH (14:31)
--- NOTE | 2019-09-02 14:37 | PN ---
Date of Progress Note: 09/02/2019 The patient states he feels somewhat better today. Appetite is slowly improved. He is taking in flu ids, although solid intake is still questionable. No further vomiting. However, his blood pressure is still elevated. We will add Altace back to the regimen and see if this changes his GI problem to see which is the etiology of his nausea and vomiting. Blood counts are stable. Collecting his 24 ur ine for catecholamines for a feel that should be able to be discharged tomorrow if tolerating his t and if blood pressure is stable. HR/MODL Voice ID: [id number] Report ID: [id number]
[2019-09-02] MEDS: LORAZEPAM 1 MG TABLET PO SCH (21:44)
[2019-09-03 06:08] LABS: Basophils % 0.4 % (0-1.3); Hematocrit 40.1 % (39.6-49.0); Lymphocytes % 17.1 % (15.3-44.8); MPV 7.3 fL (7.6-11.3); RBC Red Blood Cell Count 4.34 M/uL (4.33-5.43)
[2019-09-03 06:30] LABS: Magnesium 2.4 mg/dL (1.8-2.4); Potassium 3.8 mmol/L (3.5-5.1)
[2019-09-03] MEDS: AMLODIPINE 2.5 MG TAB PO SCH (08:22)
[2019-09-03] MEDS: ramipriL 5 MG CAP PO SCH (08:23)
[2019-09-03] MEDS: carvediloL 3.125 MG TAB PO SCH (08:23)
--- NOTE | 2019-09-03 10:52 | HP ---
Date of Admission: 09/02/2019 Chief Complaint: Vomiting, general malaise. History Of Present Illness: Patient recently returned home after sustaining a CVA, which necessitate d hospitalization and rehab. He has had some problems with blood pressure since he has been at home with some significant swings, somewhat similar to his hospital stay, however, seemed to be stabilized when he was home. In any event he became nauseous a couple of days after being discharged from reha b and began vomiting the day before he was seen in the office. In the office he was quite dry heavin g and nauseated, overly weak and was decided to admit him for more intensive care. Past History: Prior to the history of CVA patient has had hypertension. He was taking his medicine on a p.r.n. basis. Social History: Nonsmoker, nondrinker. Family History: Noncontributory. Physical Examination: General: Patient is an elderly male with blood pressure of 180/100, pulse 92 and regular, respirator y rate 22. Head and Neck: Normocephalic. Pupils equal and reactive to light and accommodation. Fundi negative . Trachea midline. Thyroid not palpable. ENT: Negative. Chest: Clear to P and A. Cardiovascular: PMI, midclavicular line. Heart sounds normal. Peripheral pulses present and equal bilaterally. Abdomen: No organomegaly. Bowel sounds present. Extremities: Moderately dehydrated, good tone and movement on the right, some demonstrable weakness on the left side, especially the lower extremity. Rectal: Deferred. Impression: Acute gastritis, dehydration, hypertension poor controlled post recent cerebrovascular a ccident. Plan: Patient will be admitted and placed on IV fluids. Monitor his blood pressure and see if this can be stabilized. Depending on the responsiveness, he possibly be discharged within 1 to 2 days. HR/MODL Voice ID: [id number]
[2019-09-03] MEDS ORDERED: CLOPIDOGREL 75 MG TABLET PO ONE (11:54)
--- NOTE | 2019-09-03 13:37 | PN ---
Date of Progress Note: 09/03/2019 Patient states he feels somewhat better today. Occasional episodes of nausea. Has been eating. Blo od pressure relatively stable. Yesterday morning, it was elevated to 190, however, dropped without u sing the clonidine. I feel he can be discharged to collect 24-hour urine specimen. Again as apparen tly there was some mix up into the container. He can take this at home and bring it back on Thursday. Other medication adjustments have been increase the Coreg to 2 twice a day and the amlodipine to onc e a day. Continue on the rest of his medicines such as Altace, Plavix, and Eliquis. Follow up him o n Thursday. His sodium is now back to normal level. HR/MODL Voice ID: [id number] Report ID: [id number]
[2019-09-03 16:36] VITALS: TEMP 97.5
[2019-09-03 19:01] VITALS: BP 160/80
[2019-09-08 09:32] LABS: Urine 24HR Volume Metan 2475 mL
[2019-09-08 16:19] LABS: 24 HR VOLUME 2475 mL/24 h; Epinephrine Level REPORT
== END 2019-09-03 19:50 | disposition home or self-care (01) | DRG 392 ==
LOC: 2ND 13:25 → OBSVTOIN 09-02 15:23
PROVIDERS: ADMIT Family Medicine; ATTEND Family Medicine
DX: K29.00 Acute gastritis without bleeding (principal); E86.0 Dehydration; I10 Essential (primary) hypertension; Z20.828 Contact with and (suspected) exposure to other viral communicable diseases; Z86.73 Personal history of transient ischemic attack (TIA), and cerebral infarction without residual deficits
CPT/HCPCS: 36415; 80048; 81003; 82384; 83735; 83835; 85025; 93005; G0378; G0379; J2405; U0002